=== PATIENT | male | born 1965 | race Caucasian/White ===

== ENCOUNTER 2018-02-03 20:52 | Observation (INO) | payer BC, OTHER ==
--- NOTE | 2018-02-03 21:22 | RAD REPORT ---
EXAM DESCRIPTION: CT - Ct Stroke Brain Wo Cont - 02/03/2018 9:11 pm CLINICAL HISTORY: Left leg numbness COMPARISON: None. TECHNIQUE: Computed axial tomography of the head was obtained. IV contrast was not requested. All CT scans are performed using dose optimization technique as appropriate and may include automated exposure control or mA/KV adjustment according to patient size. FINDINGS: An intracranial bleed is not seen . The ventricles are normal in caliber. No extra-axial fluid collection is noted. Right maxillary sinusitis is seen IMPRESSION: No acute intracranial abnormality is seen. If patient's symptoms persist MRI of the bra in would be recommended. Exam was discussed with Doctor López 9:13 p.m. 02/03/2018
[2018-02-03 21:27] LABS: Absolute Lymphocytes (CBC) 2.5 K/uL (0.7-4.9); Absolute Monocytes 0.6 K/uL (0.1-1.3); Basophils % 0.9 % (0-1.3); Eosinophils % 7.1 % (0-4.4); Hematocrit 44.9 % (39.6-49.0); Lymphocytes % 37.2 % (15.3-44.8); MCH 29.5 pg (27.0-35.0); MCV 85.1 fL (80-100); MPV 7.7 fL (7.6-11.3); Monocytes % 9.1 % (3.3-12.3); RBC Red Blood Cell Count 5.28 M/uL (4.33-5.43)
[2018-02-03 21:31] LABS: Protime INR 0.93
--- NOTE | 2018-02-03 21:32 | RAD REPORT ---
EXAM DESCRIPTION: Velia Single View02/03/2018 9:22 pm CLINICAL HISTORY: Numbness/code stroke COMPARISON: 2009 FINDINGS: The lungs appear clear of acute infiltrate. The heart is normal size IMPRESSION: No acute abnormalities displayed
[2018-02-03 21:44] LABS: BUN Blood Urea Nitrogen 21 mg/dL (7-18); Bicarbonate 30 mmol/L (21-32); Glucose Level 92 mg/dL (74-106); Magnesium 2.3 mg/dL (1.8-2.4); Sodium Level 143 mmol/L (136-145); Troponin (Emerg Dept Use Only) < 0.02 ng/mL (0.0-0.045)
[2018-02-03] MEDS ORDERED: ASPIRIN 81 MG CHEWABLE TABLET ONE (21:52)
--- NOTE | 2018-02-03 22:00 | EDPHYS ---
Physician Documentation [facility] Name: Niranjan Arteaga Age: 52 yrs Sex: Male : 1965 Arrival Date: 02/03/2018 Time: 20:53 Bed 4 Private MD: Colt Vinson T ED Physician Myke Mcclain HPI: 02/03 21:57 This 52 yrs old Male presents to ER via Ambulatory with complaints of rn Numbness. 21:57 The patient's problem is reported as paresthesias, in left lower extremity, weakness, rn in the left lower extremity. Onset: The symptoms/episode began/occurred around 3-4PM today. Duration: This was a single incident. The symptoms are alleviated by nothing. The symptoms are aggravated by nothing. Severity of symptoms: At their worst the symptoms were mild in the emergency department the symptoms are unchanged. The patient has experienced a previous episode. Historical: - Allergies: 21:17 Codeine; fc - Home Meds: 21:17 Xanax Oral [Active]; Enalapril Oral [Active]; fc - PMHx: 21:17 CVA; Hypertension; Anxiety; fc - PSHx: 21:17 Knee surgery; Carpal Tunnel Repair; elbow surg; fc - Immunization history:: Last tetanus immunization: unknown, Flu vaccine is not up to date. - Social history:: Smoking status: Patient/guardian denies using tobacco, the patient reports quitting approximately 7 years ago. - Ebola Screening: : Patient negative for fever greater than or equal to 101.5 degrees Fahrenheit, and additional compatible Ebola Virus Disease symptoms Patient denies exposure to infectious person Patient denies travel to an Ebola-affected area in the 21 days before illness onset. - Family history:: not pertinent. - Hospitalizations: : No recent hospitalization is reported. ROS: 21:57 Constitutional: Negative for fever, chills, and weight loss, Eyes: Negative for injury, rn pain, redness, and discharge, Neck: Negative for injury, pain, and swelling, Cardiovascular: Negative for chest pain, palpitations, and edema, Respiratory: Negative for shortness of breath, cough, wheezing, and pleuritic chest pain, Abdomen/GI: Negative for abdominal pain, nausea, vomiting, diarrhea, and constipation, MS/Extremity: Negative for injury and deformity, Skin: Negative for injury, rash, and discoloration, Neuro: + weakness and tingling LLE Exam: 21:57 Radiologist reports: no acute findings rn 21:57 Constitutional: This is a well developed, well nourished patient who is awake, alert, and in no acute distress. Head/Face: Normocephalic, atraumatic. Eyes: Pupils equal round and reactive to light, extra-ocular motions intact. Lids and lashes normal. Conjunctiva and sclera are non-icteric and not injected. Cornea within normal limits. Periorbital areas with no swelling, redness, or edema. Cardiovascular: Regular rate and rhythm with a normal S1 and S2. No gallops, murmurs, or rubs. Normal PMI, no JVD. No pulse deficits. Respiratory: Lungs have equal breath sounds bilaterally, clear to auscultation and percussion. No rales, rhonchi or wheezes noted. No increased work of breathing, no retractions or nasal flaring. Abdomen/GI: Soft, non-tender Skin: Warm, dry with normal turgor. Normal color with no rashes, no lesions, and no evidence of cellulitis. MS/ Extremity: Pulses equal, no cyanosis. Neuro: Awake and alert, GCS 15, oriented to person, place, time, and situation. Cranial nerves II-XII grossly intact. No drift, mild decreased strength LLE compared to rest. Decreased sensation to soft touch LLE. Cerebellar exam normal. Vital Signs: 20:58 BP 138 / 98; Pulse 104; Resp 20; Temp 98.6(O); Pulse Ox 97% on R/A; Weight 106.59 kg fc (R); Height 5 ft. 9 in. (175.26 cm) (R); Pain 0/10; 22:03 BP 134 / 86; Pulse 86; Resp 18; Pulse Ox 96% ; ea 22:47 BP 116 / 72; Pulse 83; Resp 18; Pulse Ox 97% ; Pain 0/10; ea 23:42 BP 132 / 90; Pulse 80; Resp 18; Pulse Ox 97% ; Pain 0/10; ea 20:58 Body Mass Index 34.70 (106.59 kg, 175.26 cm) NIH Stroke Scale Scores: 20:59 NIHSS Score: 1 fc MDM: 20:58 Patient medically screened. rn 21:05 ED course: Onset of symptoms patient reports between 3-4 PM, now between 5-6 hours past rn onset, outside of TPA window, notified patient of this and aware. Reports last episode didn't seek care and went away next morning. . 21:31 ED course: NIH 1, no TPA indicated due to out of window, will admit for stroke w/u. rn 21:57 Differential diagnosis: CVA, TIA, metabolic disorder. Data reviewed: vital signs, rn nurses notes, lab test result(s), EKG, radiologic studies, CT scan, and as a result, I will admit patient. Counseling: I had a detailed discussion with the patient and/or guardian regarding: the historical points, exam findings, and any diagnostic results supporting the discharge/admit diagnosis, lab results, radiology results, the need for further work-up and treatment in the hospital. Admission orders: after a detailed discussion of the patient's condition and case, the admit orders are written by me. 02/03 21:05 Order name: Magnesium rn 02/03 21:05 Order name: Troponin (emerg Dept Use Only) rn 02/03 21:05 Order name: Basic Metabolic Panel rn 02/03 21:05 Order name: CBC with Diff rn 02/03 21:05 Order name: Protime (+inr) rn 02/03 21:05 Order name: Ptt, Activated rn 02/03 21:05 Order name: Magnesium EDAZ 02/03 21:05 Order name: Troponin (Emerg Dept Use Only) EDAZ 02/03 21:05 Order name: Basic Metabolic Panel EDAZ 02/03 21:55 Order name: CBC with Automated Diff EDMS 02/03 21:55 Order name: CBC with Automated Diff EDMS 02/03 21:55 Order name: Comprehensive Metabolic Panel EDAZ 02/03 21:55 Order name: Comprehensive Metabolic Panel EDMS 02/03 21:55 Order name: Lipid Profile EDMS 02/03 21:05 Order name: CT Stroke Brain w/o Contrast; Complete Time: 21:31 rn 02/03 21:05 Order name: Stroke CXR 1 View; Complete Time: 21:34 rn 02/03 21:05 Order name: EKG; Complete Time: 21:06 rn 02/03 21:54 Order name: NPO EDMS 02/03 21:54 Order name: NPO EDMS 02/03 21:55 Order name: Physical Therapy Consult EDAZ 02/03 21:55 Order name: Speech Therapy Consult EDAZ 02/03 21:55 Order name: Echo with Doppler EDAZ 02/03 21:55 Order name: Lipid Profile EDAZ 02/03 21:55 Order name: Magnesium EDAZ 02/03 21:55 Order name: Magnesium EDAZ 02/03 21:55 Order name: Phosphorus EDAZ 02/03 21:55 Order name: Phosphorus EDAZ 02/03 21:55 Order name: Stroke Protocol EDAZ 02/03 21:05 Order name: Accucheck; Complete Time: 21:20 rn 02/03 21:05 Order name: Cardiac monitoring; Complete Time: 21:41 rn 02/03 21:05 Order name: EKG - Nurse/Tech; Complete Time: 21:20 rn 02/03 21:05 Order name: IV Saline Lock; Complete Time: 21:20 rn 02/03 21:05 Order name: Labs collected and sent; Complete Time: 21:20 rn 02/03 21:05 Order name: NPO; Complete Time: 21:20 rn 02/03 21:05 Order name: O2 Per Protocol; Complete Time: 21:20 rn 02/03 21:05 Order name: O2 Sat Monitoring; Complete Time: 21:20 rn 02/03 21:05 Order name: Stroke Swallow Screen; Complete Time: 21:49 rn 02/03 21:55 Order name: NPO EDAZ 02/03 21:55 Order name: EKG Electrocardiogram EDAZ Administered Medications: 21:49 Drug: Aspirin Chewable Tablet 324 mg Route: PO; ea 22:05 Follow up: Response: No adverse reaction ea Point of Care Testing: Blood Glucose: 21:02 Blood Glucose: 92 mg/dL; fc Ranges: Critical Glucose Levels:Adult <50 mg/dl or >400 mg/dl <40 mg/dl or >180 mg/dl Disposition: 02/03/18 22:00 Hospitalization ordered by Clementine Reilly for Inpatient Admission. Preliminary diagnosis are Paresthesia of skin, Weakness, Cerebrovascular accident (stroke). - Bed requested for Telemetry/MedSurg (Inpatient). - Status is Inpatient Admission. ea - Condition is Stable. - Problem is new. - Symptoms are unchanged. UTI on Admission? No NIH Stroke Scale - NIH Stroke Score Date: 02/03/2018 Time: 20:59 Total Score = 1 1a. Level of Consciousness (LOC) - 0(Alert) 1b. Level of Consciousness (LOC) (Year \T\ Age) - 0(Both) 1c. LOC Commands (Open \T\ Closes Eyes/Film Developer) - 0(Both) 2. Best Gaze (Lateral Gaze Paresis) - 0(Normal) 3. Visual Field Loss - 0(No visual loss) 4. Facial Palsy - 0(Normal) 5a. Left Arm: Motor (10-second hold) - 0(No drift) 5b. Right Arm: Motor (10-second hold) - 0(No drift) 6a. Left Leg: Motor (5-second hold - always test supine) - 0(No drift) 6b. Right Leg: Motor (5-second hold - always test supine) - 0(No drift) 7. Limb Ataxia (finger/nose \T\ heel/mak - test with eyes open) - 0(Absent) 8. Sensory Loss (pinprick arms/legs/face) - 1(Mild to moderate loss) 9. Best Language: Aphasia (description/naming/reading) - 0(No aphasia) 10. Dysarthria (speech clarity - read or repeat words) - 0(Normal) 11. Extinction and Inattention (visual/tactile/auditory/spatial/personal) - 0(No abnormality) Initials: fc Signatures: Dispatcher [employer] EDAZ Clarisse Galvin RN RN kl Chretien, Felicia, RN RN Myke Mcclain MD MD rn Antunez, Elena, RN RN ea Corrections: (The following items were deleted from the chart) 21:59 21:55 Chest Pa And Lat (2 Views) ordered. EDAZ EDAZ 22:20 22:00 Hospitalization Ordered by Clementine Reilly MD for Inpatient Admission. [email or web address] Preliminary diagnosis is Paresthesia of skin; Weakness; Cerebrovascular accident (stroke). Bed requested for Telemetry/MedSurg (Inpatient). Status is Inpatient Admission. Condition is Stable. Problem is new. Symptoms are unchanged. UTI on Admission? No. rn 23:48 22:20 02/03/2018 22:00 Hospitalization Ordered by Clementine Reilly MD for ea Inpatient Admission. Preliminary diagnosis is Paresthesia of skin; Weakness; Cerebrovascular accident (stroke). Bed requested for Telemetry/MedSurg (Inpatient). Status is Inpatient Admission. Condition is Stable. Problem is new. Symptoms are unchanged. UTI on Admission? No. kl
--- NOTE | 2018-02-03 22:00 | ER ---
Nurse's Notes [facility] Name: Niranjan Arteaga Age: 52 yrs Sex: Male : 1965 Arrival Date: 02/03/2018 Time: 20:53 Bed 4 Private MD: Colt Vinson T Diagnosis: Paresthesia of skin;Weakness;Cerebrovascular accident (stroke) Presentation: 02/03 20:58 Presenting complaint: Patient states: that at approx 1600 he noted that his left foot fc was numb and it has progressed up his left leg to his knee. States that this is the way his last stroke started. Transition of care: patient was not received from another setting of care. Onset of symptoms was February 03, 2018 at 16:00. Risk Assessment: Do you want to hurt yourself or someone else? Patient reports no desire to harm self or others. Initial Sepsis Screen: Does the patient meet any 2 criteria? HR > 90 bpm. Yes Does the patient have a suspected source of infection? No. Patient's initial sepsis screen is negative. Care prior to arrival: None. 20:58 Method Of Arrival: Ambulatory 20:58 Acuity: ROSE 2 fc Historical: - Allergies: 21:17 Codeine; fc - Home Meds: 21:17 Xanax Oral [Active]; Enalapril Oral [Active]; fc - PMHx: 21:17 CVA; Hypertension; Anxiety; fc - PSHx: 21:17 Knee surgery; Carpal Tunnel Repair; elbow surg; fc - Immunization history:: Last tetanus immunization: unknown, Flu vaccine is not up to date. - Social history:: Smoking status: Patient/guardian denies using tobacco, the patient reports quitting approximately 7 years ago. - Ebola Screening: : Patient negative for fever greater than or equal to 101.5 degrees Fahrenheit, and additional compatible Ebola Virus Disease symptoms Patient denies exposure to infectious person Patient denies travel to an Ebola-affected area in the 21 days before illness onset. - Family history:: not pertinent. - Hospitalizations: : No recent hospitalization is reported. Screenin:14 Abuse screen: Denies threats or abuse. Nutritional screening: No deficits noted. fc Tuberculosis screening: No symptoms or risk factors identified. Fall Risk No fall in past 12 months (0 pts). Secondary diagnosis (15 points) CVA, IV access (20 points). Ambulatory Aid- None/Bed Rest/Nurse Assist (0 pts). Gait- Normal/Bed Rest/Wheelchair (0 pts) Mental Status- Overestimates/Forgets Limitations (15 pts.). Total Aparicio Fall Scale indicates Low Risk Score (25-44 pts). Fall prevention measures have been instituted. Side Rails Up X 2 Placed close to Nursing Station Frequent Obs/Assesments occuring Family Present and informed to notify staff if they need to leave bedside As available Patient and Family Educated on Fall Prevention Program and strategies. 21:18 The patient has not been NPO before screening. The patient is alert, able to follow fc commands. The patient does not exhibit slurred or garbled speech The patient is not exhibiting difficulty speaking. The patient does not exhibit difficulty understanding words. The patient is able to swallow own secretions with no drooling or need for suction. Patient tolerated one teaspoon of water. No drooling, immediate coughing, gurgling, or clearing of the throat was noted. The patient tolerated 90mL of water. No drooling, immediate coughing, gurgling, or clearing of the throat was noted. The patient passed the bedside swallow screening. Oral medications may be given as ordered. Contact Physician for further diet orders. Provider notified of bedside swallow screening results: Myke Mcclain MD. Assessment: 21:16 General: Appears in no apparent distress. Behavior is calm, cooperative, appropriate ea for age. Pain: Denies pain. Neuro: Level of Consciousness is awake, alert, obeys commands, Oriented to person, place, time, situation, Sales Service Supervisor are equal bilaterally Weakness in left leg(s) Speech is normal, Facial symmetry appears normal, Intact. Cardiovascular: Patient's skin is warm and dry. Respiratory: Airway is patent Respiratory effort is even, unlabored, Respiratory pattern is regular, symmetrical, Breath sounds are clear bilaterally. GI: No signs and/or symptoms were reported involving the gastrointestinal system. : No signs and/or symptoms were reported regarding the genitourinary system. Derm: Skin is pink, warm \T\ dry. 22:01 Reassessment: Patient and/or family updated on plan of care and expected duration. Pain ea level reassessed. Patient is alert, oriented x 3, equal unlabored respirations, skin warm/dry/pink. Family at bedside. 23:42 Reassessment: Patient and/or family updated on plan of care and expected duration. Pain ea level reassessed. Patient is alert, oriented x 3, equal unlabored respirations, skin warm/dry/pink. Report called to fourth floor to receiving nurse. Patient denies pain at this time. 23:47 Reassessment: Patient and/or family updated on plan of care and expected duration. Pain ea level reassessed. Patient is alert, oriented x 3, equal unlabored respirations, skin warm/dry/pink. Pt taken to fourth floor via wheelchair per tech, tolerating well. Vital Signs: 20:58 BP 138 / 98; Pulse 104; Resp 20; Temp 98.6(O); Pulse Ox 97% on R/A; Weight 106.59 kg fc (R); Height 5 ft. 9 in. (175.26 cm) (R); Pain 0/10; 22:03 BP 134 / 86; Pulse 86; Resp 18; Pulse Ox 96% ; ea 22:47 BP 116 / 72; Pulse 83; Resp 18; Pulse Ox 97% ; Pain 0/10; ea 23:42 BP 132 / 90; Pulse 80; Resp 18; Pulse Ox 97% ; Pain 0/10; ea 20:58 Body Mass Index 34.70 (106.59 kg, 175.26 cm) fc NIH Stroke Scale Scores: 20:59 NIHSS Score: 1 ED Course: 20:53 Patient arrived in ED. am2 20:54 Gabe Roberts MD is Private Physician. am2 20:54 Colt Vinson MD is Private Physician. am2 20:58 Myke Mcclain MD is Attending Physician. rn 20:58 Arm band placed on Patient placed in an exam room, on a stretcher. fc 21:03 Initial lab(s) drawn, by ED staff, sent to lab. Inserted saline lock: 20 gauge in left fc antecubital area, using aseptic technique. ,using aseptic technique. per Lissy FELICIANO Blood collected. 21:11 CT Stroke Brain w/o Contrast In Process Unspecified. EDMS 21:11 Triage completed. fc 21:15 Lissy Hammond, RN is Primary Nurse. ea 21:15 X-ray(s) taken. fc 21:18 Patient has correct armband on for positive identification. ea 21:23 Stroke CXR 1 View In Process Unspecified. EDMS 21:59 Clementine Reilly MD is Hospitalizing Provider. rn 22:48 No provider procedures requiring assistance completed. Patient admitted, IV remains in ea place. Administered Medications: 21:49 Drug: Aspirin Chewable Tablet 324 mg Route: PO; ea 22:05 Follow up: Response: No adverse reaction ea Point of Care Testing: Blood Glucose: 21:02 Blood Glucose: 92 mg/dL; fc Ranges: Outcome: 22:00 Decision to Hospitalize by Provider. rn 23:41 Admitted to Med/surg accompanied by tech, family with patient, room 429, Report called ea to Receiving nurse on fourth floor. 23:41 Condition: stable 23:41 Instructed on the need for admit. 23:48 Patient left the ED. ea NIH Stroke Scale - NIH Stroke Score Date: 02/03/2018 Time: 20:59 Total Score = 1 1a. Level of Consciousness (LOC) - 0(Alert) 1b. Level of Consciousness (LOC) (Year \T\ Age) - 0(Both) 1c. LOC Commands (Open \T\ Closes Eyes/Principle Software Engineer) - 0(Both) 2. Best Gaze (Lateral Gaze Paresis) - 0(Normal) 3. Visual Field Loss - 0(No visual loss) 4. Facial Palsy - 0(Normal) 5a. Left Arm: Motor (10-second hold) - 0(No drift) 5b. Right Arm: Motor (10-second hold) - 0(No drift) 6a. Left Leg: Motor (5-second hold - always test supine) - 0(No drift) 6b. Right Leg: Motor (5-second hold - always test supine) - 0(No drift) 7. Limb Ataxia (finger/nose \T\ heel/mak - test with eyes open) - 0(Absent) 8. Sensory Loss (pinprick arms/legs/face) - 1(Mild to moderate loss) 9. Best Language: Aphasia (description/naming/reading) - 0(No aphasia) 10. Dysarthria (speech clarity - read or repeat words) - 0(Normal) 11. Extinction and Inattention (visual/tactile/auditory/spatial/personal) - 0(No abnormality) Initials: fc Signatures: Dispatcher [employer] EDUT Shelby Vargas RN RN Mcclain, Myke, MD MD rn Will, Liz am2 Hammond, Lissy, RN RN ea
[2018-02-04] MEDS: NA CHLORIDE 0.9% 1,000 ML IV SCH ×2 (01:41→11:20)
[2018-02-04 04:33] LABS: Albumin 3.2 g/dL (3.4-5.0); Bilirubin Total 0.2 mg/dL (0.2-1.0); Magnesium 2.1 mg/dL (1.8-2.4); Potassium 4.3 mmol/L (3.5-5.1); Protein, Total 6.4 g/dL (6.4-8.2)
[2018-02-04 04:50] LABS: Absolute Lymphocytes (CBC) 2.7 K/uL (0.7-4.9); Absolute Monocytes 0.6 K/uL (0.1-1.3); Absolute Neutrophil 2.4 K/uL (1.8-8.0); Eosinophils % 8.5 % (0-4.4); Hematocrit 42.5 % (39.6-49.0); Lymphocytes % 43.4 % (15.3-44.8); MCH 29.1 pg (27.0-35.0); MCV 85.7 fL (80-100); MPV 7.9 fL (7.6-11.3); Monocytes % 8.9 % (3.3-12.3); RBC Red Blood Cell Count 4.96 M/uL (4.33-5.43)
--- NOTE | 2018-02-04 08:23 | P.HP ---
Certification for Inpatient Patient admitted to: Observation With expected LOS: <2 Midnights Patient will require the following post-hospital care: None Practitioner: I am a practitioner with admitting privileges, knowledge of patient current condition, hospital course, and medical plan of care. Services: Services provided to patient in accordance with Admission requirements found in Title 42 Section 412.3 of the Code of Federal Regulations Patient History Date of Service: 02/03/18 Reason for admission: TIA History of Present Illness: Patient is a 52-year-old gentleman who came into the hospital with numbness of the left lower extremity. Patient also had a little bit a weakness. He states the numbness was of worse symptom. This was not felt in the upper extremity. He has had it in the whole left side of his body and he states that at that time he was told he had a stroke. He has not been following with his neurologist regularly. He came into the hospital because he was worried he was having another stroke. His NIHSS stroke schedule score is see row. His CT scan did not reveal a new stroke nor did it reveal any prior infarcts. He could be having neuropathy. He will be admitted to the hospital for further workup. Allergies codeine Allergy (Verified 02/04/18 01:04) remains awake Home Medications: ALPRAZolam [Xanax] 2 mg PO BEDTIME 02/04/18 Aspirin [Aspirin EC 325 MG] 325 mg PO DAILY 02/04/18 Duloxetine HCl [Cymbalta] 60 mg PO BEDTIME 02/04/18 Enalapril Maleate [Vasotec] 5 mg PO DAILY 02/04/18 Linaclotide [Linzess] 1 cap PO DAILY 02/04/18 - Past Medical/Surgical History Diabetic: No -: CVA -: Hypertension -: Anxiety -: Right knee repair -: Bilateral carpal tunnel x2 -: Bilateral elbow sx - Family History Mother Medical History: Other (see notes) Notes: Alzheimers Father Medical History: GI disease Notes: Crohns; HTN; high cholesterol - Social History Smoking Status: Former smoker Alcohol use: Yes CD- Drugs: No Caffeine use: Yes Place of Residence: Home Review of Systems 10-point ROS is otherwise unremarkable Physical Examination - Vital Signs Temperature: 97.9 F Blood Pressure: 105/58 Pulse: 74 Respirations: 18 Pulse Ox (%): 100 - Physical Exam General: Alert, In no apparent distress, Oriented x3 HEENT: Atraumatic, PERRLA, Mucous membr. moist/pink, EOMI, Sclerae nonicteric Neck: Supple, 2+ carotid pulse no bruit, No LAD, Without JVD or thyroid abnormality Respiratory: Clear to auscultation bilaterally, Normal air movement Cardiovascular: Regular rate/rhythm, Normal S1 S2, No murmurs Gastrointestinal: Normal bowel sounds, Soft and benign, Non-distended, No tenderness Musculoskeletal: No clubbing, No swelling, No tenderness Integumentary: No rashes Neurological: Normal gait, Normal speech, Normal strength at 5/5 x4 extr, Normal tone, Sensation intact, Cranial nerves 3-12 intact, Normal affect Lymphatics: No axilla or inguinal lymphadenopathy - Studies Laboratory Data (last 24 hrs) 02/03/18 21:02: PT 11.0, INR 0.93, APTT 32.6 02/03/18 21:02: WBC 6.7, Hgb 15.6, Hct 44.9, Plt Count 254 02/03/18 21:02: Sodium 143, Potassium 4.0, BUN 21 H, Creatinine 1.50 H, Glucose 92, Magnesium 2.3 Assessment & Plan - Problems (Diagnosis) (1) TIA (transient ischemic attack) Current Visit: Yes Status: Acute (2) Neuropathy Current Visit: Yes Status: Acute (3) History of hypertension Current Visit: Yes Status: Acute - Plan 1. Physical therapy evaluation is doing okay. Will have them assess his left lower extremity strength 2. Speech therapy evaluation is not necessary at this time as patient is swallowing and talking well. 3. Anti-platelet therapy 4. Lipid profile in the morning to see if he would benefit from statin therapy 5. MRI of the brain 6. Physically patient is doing well and does not need further physical therapy 7. Neurology consultation 8. Monitor hemodynamics closely 9. Neuro checks every 4 hr 10. GI and DVT prophylaxis Discharge Plan: Home Plan to discharge in: 24 Hours - Advance Directives Does patient have a Living Will: No Does patient have a Durable POA for Healthcare: No - Code Status/Comfort Care Code Status Assessed: Yes Code Status: Full Code Critical Care: No Time Spent Managing PTS Care (In Minutes): 50
--- NOTE | 2018-02-04 08:38 | EKG ---
Test Date: 2018-02-03 Test Time: 21:03:45 Recruiting Operations Consultant: HU MEASUREMENT RESULTS: Intervals: Rate: 93 MT: 134 QRSD: 72 QT: 348 QTc: 432 Stopover: P: 56 MT: 134 QRS: -27 T: 31 INTERPRETIVE STATEMENTS: Normal sinus rhythm Normal ECG Compared to ECG 02/01/2010 10:48:24 No significant changes Electronically Signed On 02-04-18 08:37:34 CDT by Gabriel Bah
[2018-02-04] MEDS ORDERED: CLOPIDOGREL 75 MG TABLET PO SCH (09:00)
[2018-02-04] MEDS ORDERED: INFLUENZA VACCINE (for 3y+) 0.5 ML DOSE IMVAC ONE (09:00)
[2018-02-04] MEDS ORDERED: ASPIRIN EC 81 MG TAB PO SCH (09:00)
[2018-02-04] MEDS ORDERED: ENOXAPARIN 40 MG/0.4 ML SQ SCH (09:00)
--- NOTE | 2018-02-04 09:12 | RAD REPORT ---
EXAM DESCRIPTION: MRI - Brain W/Wo Cont - 02/04/2018 8:24 am CLINICAL HISTORY: Left leg numbness COMPARISON: 02/03/2018 cat scan TECHNIQUE: Axial, sagittal, and coronal magnetic images of the brain were obtained. 20 cc MultiHance administered intravenously FINDINGS: A few tiny areas increased signal are present within the deep white matter bilaterally whi ch may represent minimal ischemic changes secondary to minimal small vessel disease Diffusion-weighted/ADC mapping does not reveal evidence of acute infarction. The ventricles are normal caliber. No abnormal enhancement within the brain is seen. An extra-axial fluid collection is not seen Marked mucoperiosteal thickening of the right maxillary sinus is present. Fluid within the mastoids i s not seen IMPRESSION: No significant intracranial abnormality is displayed Chronic right maxillary sinusitis
--- NOTE | 2018-02-04 09:14 | RAD REPORT ---
EXAM DESCRIPTION: MRI - MRA Neck W/Wo Cont - 02/04/2018 8:24 am CLINICAL HISTORY: Left leg numbness COMPARISON: None. TECHNIQUE: Magnetic resonance angiogram of the neck was performed. 19 cc Magnevist was administered intravenously. .Source images were reviewed and reconstructed at 360 degrees rotation. FINDINGS: The left carotid bifurcation is higher within the neck than the right. The common carotid, internal carotid and external carotid arteries do not demonstrate a significant stenosis. An aneurys m is not seen. The vertebral arteries are codominant without visualization of an abnormality. IMPRESSION: Unremarkable MRA neck
--- NOTE | 2018-02-04 09:27 | RAD REPORT ---
EXAM DESCRIPTION: MRI - MRA Head Wo Cont - 02/04/2018 8:24 am CLINICAL HISTORY: Left leg numbness COMPARISON: None. TECHNIQUE: Magnetic resonance angiogram of the head was performed. 3D mip reconstruction performed FINDINGS: The visualized anterior cerebral, middle cerebral, posterior cerebral, basilar and distal internal carotid arteries do not demonstrate a significant stenosis. An aneurysm is not seen IMPRESSION: Unremarkable MRA head
--- NOTE | 2018-02-04 12:55 | P.DS ---
Admission Date: 02/03/18 Discharge Date: 02/04/18 Primary Care Provider: Dr. Vinson Disposition: ROUTINE DISCHARGE Discharge Condition: GOOD Reason for Admission: TIA Consultations: None Procedures: MRI brain CLINICAL HISTORY: Left leg numbness COMPARISON: 02/03/2018 cat scan TECHNIQUE: Axial, sagittal, and coronal magnetic images of the brain were obtained. 20 cc MultiHance administered intravenously FINDINGS: A few tiny areas increased signal are present within the deep white matter bilaterally which may represent minimal ischemic changes secondary to minimal small vessel disease Diffusion-weighted/ADC mapping does not reveal evidence of acute infarction. The ventricles are normal caliber. No abnormal enhancement within the brain is seen. An extra-axial fluid collection is not seen Marked mucoperiosteal thickening of the right maxillary sinus is present. Fluid within the mastoids is not seen IMPRESSION: No significant intracranial abnormality is displayed Chronic right maxillary sinusitis MRA Brain: COMPARISON: None. TECHNIQUE: Magnetic resonance angiogram of the head was performed. 3D mip reconstruction performed FINDINGS: The visualized anterior cerebral, middle cerebral, posterior cerebral , basilar and distal internal carotid arteries do not demonstrate a significant stenosis. An aneurysm is not seen IMPRESSION: Unremarkable MRA head MRA Neck: COMPARISON: None. TECHNIQUE: Magnetic resonance angiogram of the neck was performed. 19 cc Magnevist was administered intravenously. .Source images were reviewed and reconstructed at 360 degrees rotation. FINDINGS: The left carotid bifurcation is higher within the neck than the right. The common carotid, internal carotid and external carotid arteries do not demonstrate a significant stenosis. An aneurysm is not seen. The vertebral arteries are codominant without visualization of an abnormality. IMPRESSION: Unremarkable MRA neck Medical Problem List: Lower extremity numbness resolved likely TIA with history of CVA Hypertension Hyperlipidemia Anxiety Acute renal insufficiency likely dehydration Brief History of Present Illness: 52-year-old male present emergency room with left lower extremity numbness. Patient with history of hypertension and CVA in the past. Patient was seen and evaluated. Patient was admitted for further evaluation. Hospital Course: Patient presents with left lower extremity numbness. Patient with history of hypertension and CVA in the past. Patient was evaluated. Symptoms resolved. MRI brain, MRA brain, MRA neck showed no acute changes. Patient previously on aspirin. Patient worked with physical therapy. Patient was ambulating well. Case discussed with Neurology. At discharge patient will continue with aspirin 81 mg daily, Plavix 75 mg daily, folic acid 1 mg daily and Lipitor 40 mg daily. Recommendation is for the patient follow up with neurology in 1-2 weeks to follow up this hospitalization. Patient has hypertension. Blood pressures were well controlled off medication. At discharge, enalapril 5 mg daily has been discontinued. He is to monitors blood pressures daily. Recommendation is to maintain blood pressures less 150/ 80. If his blood pressures remain above 140/90 consistently then he may restart enalapril. Further adjustment can be done by his PCP. Patient has hyperlipidemia. LDL elevated. At discharge patient will continue with Lipitor 40 mg 1 pill once daily. Patient has anxiety. Patient may continue with his medication Cymbalta 60 mg 1 pill daily and alprazolam. Further adjustment can be done by his PCP. Recommendation is to limit and eventually wean off alprazolam. Patient had presented with acute renal insufficiency likely from dehydration. Patient received IV fluids. Improvement was noted. Recommendation to recheck lab-BMP in 1 week to monitor his progress. Vital Signs/Physical Exam: Temp Pulse Resp BP Pulse Ox 97.9 F 74 18 105/58 L 100 02/04/18 08:23 02/04/18 08:23 02/04/18 08:23 02/04/18 08:23 02/04/18 08:23 General: Alert, In no apparent distress, Oriented x3, Cooperative HEENT: Atraumatic, Mucous membr. moist/pink Neck: Supple, No Thyromegaly Respiratory: Clear to auscultation bilaterally, Normal air movement Cardiovascular: Normal pulses, Regular rate/rhythm Gastrointestinal: Normal bowel sounds, Soft and benign, Non-distended, No tenderness, No masses, No rebound, No guarding Musculoskeletal: No contractures, No erythema, No tenderness, No warmth Integumentary: No tenderness/swelling, No erythema, No warmth, No cyanosis Neurological: Normal speech, Normal strength at 5/5 x4 extr, Normal tone, Normal affect Laboratory Data at Discharge: WBC 6.3 K/uL (4.3-10.9) 02/04/18 03:50 Hgb 14.5 g/dL (13.6-17.9) 02/04/18 03:50 Hct 42.5 % (39.6-49.0) 02/04/18 03:50 Plt Count 214 K/uL (152-406) 02/04/18 03:50 PT 11.0 SECONDS (9.5-12.5) 02/03/18 21:02 INR 0.93 02/03/18 21:02 APTT 32.6 SECONDS (24.3-36.9) 02/03/18 21:02 Sodium 143 mmol/L (136-145) 02/04/18 03:43 Potassium 4.3 mmol/L (3.5-5.1) 02/04/18 03:43 BUN 19 mg/dL (7-18) H 02/04/18 03:43 Creatinine 1.00 mg/dL (0.55-1.3) 02/04/18 03:43 Glucose 98 mg/dL (74-106) 02/04/18 03:43 Phosphorus 3.0 mg/dL (2.5-4.9) 02/04/18 03:43 Magnesium 2.1 mg/dL (1.8-2.4) 02/04/18 03:43 Total Bilirubin 0.2 mg/dL (0.2-1.0) 02/04/18 03:43 AST 18 U/L (15-37) 02/04/18 03:43 ALT 28 U/L (12-78) 02/04/18 03:43 Alkaline Phosphatase 73 U/L (45-117) 02/04/18 03:43 Triglycerides 75 mg/dL (<150) 02/04/18 03:43 Cholesterol 211 mg/dL (<200) H 02/04/18 03:43 HDL Cholesterol 52 mg/dL (40-60) 02/04/18 03:43 Cholesterol/HDL Ratio 4.06 02/04/18 03:43 Home Medications: ALPRAZolam [Xanax*] 2 mg PO BEDTIME 02/04/18 Aspirin [Aspirin EC 81 MG] 81 mg PO DAILY #90 tablet. 02/04/18 Atorvastatin Calcium [Lipitor] 40 mg PO DAILY #30 tablet 02/04/18 Clopidogrel Bisulfate [Plavix*] 75 mg PO DAILY #30 tablet 02/04/18 Duloxetine HCl [Cymbalta] 60 mg PO BEDTIME 02/04/18 Folic Acid 1 mg PO DAILY #90 tablet 02/04/18 Linaclotide [Linzess] 1 cap PO DAILY 02/04/18 New Medications: Aspirin [Aspirin EC 81 MG] 81 mg PO DAILY #90 tablet. Atorvastatin Calcium [Lipitor] 40 mg PO DAILY #30 tablet Clopidogrel Bisulfate [Plavix*] 75 mg PO DAILY #30 tablet Folic Acid 1 mg PO DAILY #90 tablet Patient Discharge Instructions: 1. Patient will need a follow up with his PCP in 1 week to follow up this hospitalization. 2. Patient presents with left lower extremity numbness. Patient with history of hypertension and CVA in the past. Patient was evaluated. Symptoms resolved. MRI brain, MRA brain, MRA neck showed no acute changes. Patient previously on aspirin. Patient worked with physical therapy. Patient was ambulating well. Case discussed with Neurology. At discharge patient will continue with aspirin 81 mg daily, Plavix 75 mg daily, folic acid 1 mg daily and Lipitor 40 mg daily. Recommendation is for the patient follow up with neurology in 1-2 weeks to follow up this hospitalization. 3. Patient has hypertension. Blood pressures were well controlled off medication. At discharge, enalapril 5 mg daily has been discontinued. He is to monitors blood pressures daily. Recommendation is to maintain blood pressures less 150/80. If his blood pressures remain above 140/ 90 consistently then he may restart enalapril. Further adjustment can be done by his PCP. 4. Patient has hyperlipidemia. LDL elevated. At discharge patient will continue with Lipitor 40 mg 1 pill once daily. 5. Patient has anxiety. Patient may continue with his medication Cymbalta 60 mg 1 pill daily and alprazolam. Further adjustment can be done by his PCP. Recommendation is to limit and eventually wean off alprazolam. 6. Patient had presented with acute renal insufficiency likely from dehydration. Patient received IV fluids. Improvement was noted. Recommendation to recheck lab-BMP in 1 week to monitor his progress. Diet: AHA Activity: Ad nelly Followup: Colt Vinson MD [Primary Care Provider] - Time spent managing pt's care (in minutes): 55
[2018-02-04] MEDS ORDERED: DULOXETINE 30 MG CAP PO SCH (21:00)
[2018-02-04] MEDS ORDERED: ATORVASTATIN 20 MG TAB PO SCH (21:00)
--- NOTE | 2018-02-05 07:18 | ECHO ---
HEIGHT: 5 ft 11 in WEIGHT: 236 lb 8 oz DATE OF STUDY: 02/04/[address]: Clementine Reilly MD 2-DIMENSIONAL: YES M.MODE: YES DOPPLER: YES COLOR FLOW: YES TDS: PORTABLE: DEFINITY: BUBBLE STUDY: DIAGNOSIS: STROKE CARDIAC HISTORY: CATHERIZATION: NO SURGERY: NO PROSTHETIC VALVE: NO PACEMAKER: NO MEASUREMENTS (cm) DIASTOLIC (NORMALS) SYSTOLIC (NORMALS) IVSd 1.1 (0.6-1.2) LA Diam 3.0 (1.9-4.0) LVEF 60-69% LVIDd 2.8 (3.5-5.7) LVIDs 2.2 (2.0-3.5) %FS 23% LVPWd 1.1 (0.6-1.2) Ao Diam 3.0 (2.0-3.7) 2 DIMENSIONAL ASSESSMENT: RIGHT ATRIUM: NORMAL LEFT ATRIUM: NORMAL RIGHT VENTRICLE: NORMAL LEFT VENTRICLE: NORMAL TRICUSPID VALVE: NORMAL MITRAL VALVE: NORMAL PULMONIC VALVE: NORMAL AORTIC VALVE: NORMAL PERICARDIAL EFFUSION: NONE AORTIC ROOT: NORMAL LEFT VENTRICULAR WALL MOTION: NORMAL DOPPLER/COLOR FLOW: NORMAL COMMENTS: NORMAL 2-DIMENSIONAL ECHOCARDIOGRAM WITH DOPPLER. TECHNOLOGIST: ADONIS SMYTH
[2018-02-05] MEDS ORDERED: FOLIC ACID 1 MG TABLET PO SCH (09:00)
== END 2018-02-04 16:28 | disposition home or self-care (01) ==
LOC: ER 20:52 → INTOOBSV 22:39 → ERHOLD 22:39 → 4TH 22:54
PROVIDERS: ADMIT Hospitalist; ATTEND Hospitalist
DX: R20.0 Anesthesia of skin (principal); N28.9 Disorder of kidney and ureter, unspecified; I10 Essential (primary) hypertension; E78.5 Hyperlipidemia, unspecified; F41.9 Anxiety disorder, unspecified; Z86.73 Personal history of transient ischemic attack (TIA), and cerebral infarction without residual deficits
CPT/HCPCS: 36415; 70450; 70544; 70549; 70553; 71045; 80048; 80053; 80061; 82962; 83735; 84100; 84484; 85025; 85610; 85730; 93005; 93306; 97163; 99285; A9577; G0378; J1650; J7030

== ENCOUNTER 2022-06-25 16:59 | Inpatient (IN) | payer SELFPAY ==
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
--- NOTE | 2022-06-25 17:27 | RAD REPORT ---
EXAM DESCRIPTION: CT - Ct Stroke Brain Wo Cont - 06/25/2022 5:22 pm CLINICAL HISTORY: STROKE ALERT COMPARISON: Ct Stroke Brain Wo Cont dated 02/03/2018 TECHNIQUE: All CT scans are performed using dose optimization technique as appropriate and may inclu de automated exposure control or mA/KV adjustment according to patient size. FINDINGS: No intracranial hemorrhage, hydrocephalus or extra-axial fluid collection.No areas of brai n edema or evidence of midline shift. The paranasal sinuses and mastoids are clear. The calvarium is intact. IMPRESSION: No acute intracranial abnormality. Discussed with Dr. Mcclain by Dr. Munoz at 1722 on 06/25/22
[2022-06-25] MEDS ORDERED: TENECTEPLASE 50 MG/10 ML VIAL IV ONE (17:34)
[2022-06-25] MEDS ORDERED: LABETALOL HCL 100 MG/20 ML ONE (17:36)
[2022-06-25] MEDS ORDERED: LABETALOL 20 MG/4ML SYRINGE IV ONE (17:36)
[2022-06-25 17:38] LABS: Absolute Lymphocytes (CBC) 1.9 K/uL (0.7-4.9); Hematocrit 45.9 % (39.6-49.0); Lymphocytes % 31.9 % (15.3-44.8); MCV 83.3 fL (80-100); MPV 7.7 fL (7.6-11.3); RBC Red Blood Cell Count 5.51 M/uL (4.33-5.43)
[2022-06-25 17:53] LABS: Albumin 3.9 g/dL (3.4-5.0); Bilirubin Direct 0.1 mg/dL (0-0.2); Bilirubin Total 0.4 mg/dL (0.2-1.0); Potassium 3.8 mmol/L (3.5-5.1); Protein, Total 7.4 g/dL (6.4-8.2); Troponin High Sensitivity 4.6 pg/mL (<58.9)
--- NOTE | 2022-06-25 18:13 | RAD REPORT ---
EXAM DESCRIPTION: RAD - Chest Single View - 06/25/2022 6:04 pm CLINICAL HISTORY: CHEST PAIN COMPARISON: <Comparisons> FINDINGS: Lines: None. Lungs: No evidence of edema or pneumonia. Pleural: No significant pleural effusions or pneumothorax. Cardiac: The heart size is within normal limits. Mediastinum: Within normal limits. Bones: No acute fractures. Other: None IMPRESSION: No acute cardiopulmonary disease.
[2022-06-25 18:15] LABS: SARS-CoV-2 Antigen Rapid Res Negative (Negative)
[2022-06-25 18:20] LABS: Urine Blood Negative (Negative); Urine Glucose Negative (Negative); Urine Protein Negative (Negative); Urine pH 5.5 (5.0-7.0)
--- NOTE | 2022-06-25 18:25 | ER ---
Nurse's Notes [facility] Name: Niranjan Arteaga Age: 56 yrs Sex: Male : 1965 Arrival Date: 06/25/2022 Time: 17:02 Bed 14 Private MD: Diagnosis: Paresthesia of skin;Weakness Presentation: 06/25 17:13 Chief complaint: Patient states: at a approx 1300 today he started having right lower ap3 leg numbness \T\ tingling and patients reports feeling disoriented at the same time. Patient reports a headache on both sides of his head, generalized weakness in his dimitri upper extremities. patient also reports mid chest pressure that is rated as a 6/10 on the pain scale. Coronavirus screen: At this time, the client does not indicate any symptoms associated with coronavirus-19. Ebola Screen: No symptoms or risks identified at this time. Initial Sepsis Screen: Does the patient meet any 2 criteria? No. Patient's initial sepsis screen is negative. Does the patient have a suspected source of infection? No. Patient's initial sepsis screen is negative. Risk Assessment: Do you want to hurt yourself or someone else? Patient reports no desire to harm self or others. Onset of symptoms was June 25, 2022 at 13:00. 17:13 Method Of Arrival: Ambulatory ap3 17:13 Acuity: ROSE 2 ap3 17:19 An acute neurological deficit is present. ap3 17:21 Pre-hospital glucose is not applicable to this patient. ap3 Triage Assessment: 17:16 General: Appears distressed, Behavior is calm, cooperative, anxious. Pain: Complains of ap3 pain in chest Pain currently is 6 out of 10 on a pain scale. Quality of pain is described as pressure. Neuro: Level of Consciousness is awake, alert, obeys commands, Oriented to person, place, time, situation, Speech is normal. Neuro: Reports numbness in right leg weakness in right arm and left arm. Cardiovascular: Reports chest pain, Patient's skin is warm and dry. Respiratory: Airway is patent Respiratory effort is even, unlabored, Respiratory pattern is regular, symmetrical. 17:20 The onset of the patients symptoms was June 25, 2022 at 13:00. ap3 Stroke Activation: Symtpom onset >3 hours and < 6 hours Physician: Stroke Attending; Name: ; Notified At: 17:12; Arrived At: Physician: Chief Stroke Resident; Name: ; Notified At: 17:12; Arrived At: Physician: Stroke Resident; Name: ; Notified At: 17:12; Arrived At: Physician: ED Attending; Name: ; Notified At: 17:12; Arrived At: 17:12 Physician: ED Resident; Name: ; Notified At: 17:12; Arrived At: Historical: - Allergies: 17:15 Codeine; ap3 - Immunization history:: Client reports receiving the 2nd dose of the Covid vaccine, Flu vaccine is not up to date. - Social history:: Smoking status: Patient reports use of chewing tobacco. Screenin:17 Abuse screen: Denies threats or abuse. Nutritional screening: No deficits noted. ap3 Tuberculosis screening: No symptoms or risk factors identified. 18:35 [facility] ED Fall Risk Assessment (Adult) History of falling in the last 3 months, db including since admission No falls in past 3 months (0 pts) Confusion or Disorientation No (0 pts) Intoxicated or Sedated No (0 pts) Impaired Gait No (0 pts) Mobility Assist Device Used No (0 pt) Altered Elimination No (0 pt) Score/Fall Risk Level 0 - 2 = Low Risk Oriented to surroundings, Maintained a safe environment. 18:53 Valery Swallow Protocol Brief Cognitive Screen What is your name? Normal, Where are you db right now? Normal, What year is it? Normal. Oral Mechanism Examination Facial Symmetry: Normal, Motion: Normal, Lip Closure: Normal, Oral Mechanism Result: Normal. 3 oz Water Swallow Challenge: Pt able to drink all water without stopping, coughing, choking or throat clearing: Yes Result: PASS Notified: Elian DE LA O. Assessment: 17:10 Reassessment: Patient appears in no apparent distress at this time. Patient and/or db family updated on plan of care and expected duration. Pain level reassessed. Patient is alert, oriented x 3, equal unlabored respirations, skin warm/dry/pink. patient ambulatory into ER with steady gate. Complains of right sided weakness. 17:14 Reassessment: patient in CT. db 17:14 VAN Scoring: Arm Drift: Patients demonstrates NO arm weakness. Patient is VAN Negative. db Visual Disturbance: No visual disturbance noted. Aphasia: No aphasia noted. Neglect: No neglect noted. TNKase (Tenecteplase) Screening: Indications: Definite evidence of stroke, ischemic, embolic, or hypertensive: Yes. 17:17 Pain: Pain began 1300. ap3 17:20 Pain: Pain does not radiate. ap3 17:20 Reassessment: Patient appears in no apparent distress at this time. Patient and/or db family updated on plan of care and expected duration. Pain level reassessed. Patient is alert, oriented x 3, equal unlabored respirations, skin warm/dry/pink. Neuro: Level of Consciousness is awake, alert, obeys commands, Oriented to person, place, time, situation, Speech is normal, Facial symmetry appears normal. 17:30 Reassessment: See patient chart for signed consent. db 17:35 Reassessment: See IV thrombolytic vital sign and Neurological flowsheet on patient db chart. 17:35 Reassessment:. db 18:50 Valery Swallow Protocol Brief Cognitive Screen What is your name? Normal, Where are you db right now? Normal, What year is it? Normal. Oral Mechanism Examination Facial Symmetry: Normal, Motion: Normal, Lip Closure: Normal, Oral Mechanism Result: Normal. 3 oz Water Swallow Challenge: Pt able to drink all water without stopping, coughing, choking or throat clearing: Yes Result: PASS Notified: Elian DE LA O. 19:13 Reassessment: patient to CT. General: Appears in no apparent distress. comfortable, db Behavior is calm, cooperative. Respiratory: Airway is patent Respiratory effort is even, unlabored, Respiratory pattern is regular, symmetrical. GI: Abdomen is round distended. Vital Signs: 17:13 BP 166 / 105; Pulse 88; Resp 19; Pulse Ox 98% ; Weight 108.86 kg; ap3 17:35 BP 158 / 97; Pulse 75; Pulse Ox 97% ; db 18:35 BP 130 / 102; Pulse 77; Resp 18; Pulse Ox 98% on R/A; db 18:50 BP 112 / 81; Pulse 71; Resp 18; Pulse Ox 98% on R/A; db 18:35 patient moving. db Vitals: 18:35 Cardiac Rhythm Assessment Regular Sinus rhythm. db NIH Stroke Scale Scores: 17:14 NIHSS Score: 1 db 17:17 NIHSS Score: 1 cp 18:35 NIHSS Score: 0 db ED Course: 17:02 Patient arrived in ED. rg4 17:02 Elian Wynn PA is PHCP. cp 17:02 Myke Mcclain MD is Attending Physician. cp 17:14 Felisha Turner, RN is Primary Nurse. db 17:15 Triage completed. ap3 17:17 Arm band placed on right wrist. ap3 17:17 Placed in gown. Bed in low position. Call light in reach. Side rails up X2. Cardiac ap3 monitor on. Pulse ox on. NIBP on. 17:17 Patient maintains SpO2 saturation greater than 95% on room air. ap3 17:18 EKG done per protocol. Performed by ED Staff. Shown to ED physician. Labs ordered per ss protocol. Drawn by ED staff. 17:18 20 gauge right AC using aseptic technique. ss 17:23 CT Stroke Brain w/o Contrast In Process Unspecified. EDMS 17:37 Basic Metabolic Panel Sent. ss 17:37 CBC with Diff Sent. ss 17:37 Hepatic Function Sent. ss 17:37 High Sensitivity Troponin Sent. ss 17:37 Magnesium Sent. ss 17:37 Protime (+inr) Sent. ss 17:37 Ptt, Activated Sent. ss 18:10 Stroke CXR 1 View In Process Unspecified. EDMS 18:24 Jonas Seth FNP-C is Hospitalizing Provider. cp 18:26 Alex Cabrera MD is Hospitalizing Provider. la1 19:18 Report given to JODIE Oh. Warm blanket given. db 19:23 CT Head Angio In Process Unspecified. EDMS 19:23 CT Neck Angio In Process Unspecified. EDMS 03 04:47 No provider procedures requiring assistance completed. Patient admitted, IV remains in aa9 place. Administered Medications: 06/25 17:34 Drug: Labetalol 5 mg Route: IV; Rate: calculated rate; Infused Over: 2 mins; Site: right antecubital; 17:40 Follow up: IV Status: Completed infusion db 17:35 Drug: TNK FOR STROKE - Tenecteplase 0.25 mg/kg {Co-Signature: db (Felisha Turner ss RN).} {Note: 25 mg.} Route: IV; Rate: per protocol; Site: left antecubital; 17:36 Follow up: Response: No adverse reaction; IV Status: Completed infusion db 18:00 Drug: foLIC Acid 1 mg Route: IVPB; Site: right antecubital; db 18:35 Follow up: Response: No adverse reaction; IV Status: Completed infusion; IV Intake: 10mldb Medication: 06/26 04:49 VIS not applicable for this client. aa9 Intake: 06/25 18:35 IV: 10ml; Total: 10ml. db Outcome: 18:25 Decision to Hospitalize by Provider. cp 19:00 Admitted to ER Hold. [facility]. aa9 19:00 Condition: stable 19:00 Instructed on the need for admit. aa9 06/26 19:47 Patient left the ED. lg3 NIH Stroke Scale - NIH Stroke Score Date: 06/25/2022 Time: 17:14 Total Score = 1 1a. Level of Consciousness (LOC) - 0(Alert) 1b. Level of Consciousness (LOC) (Month \T\ Age) - 0(Both) 1c. LOC Commands (Open \T\ Closes Eyes/Barrel Tester And Drainer) - 0(Both) 2. Best Gaze (Lateral Gaze Paresis) - 0(Normal) 3. Visual Field Loss - 0(No visual loss) 4. Facial Palsy - 0(Normal) 5a. Left Arm: Motor (10-second hold) - 0(No drift) 5b. Right Arm: Motor (10-second hold) - 0(No drift) 6a. Left Leg: Motor (5-second hold - always test supine) - 0(No drift) 6b. Right Leg: Motor (5-second hold - always test supine) - 0(No drift) 7. Limb Ataxia (finger/nose \T\ heel/mak - test with eyes open) - 0(Absent) 8. Sensory Loss (pinprick arms/legs/face) - 1(Mild to moderate loss) 9. Best Language: Aphasia (description/naming/reading) - 0(No aphasia) 10. Dysarthria (speech clarity - read or repeat words) - 0(Normal) 11. Extinction and Inattention (visual/tactile/auditory/spatial/personal) - 0(No abnormality) Initials: db NIH Stroke Scale - NIH Stroke Score Date: 06/25/2022 Time: 17:17 Total Score = 1 1a. Level of Consciousness (LOC) - 0(Alert) 1b. Level of Consciousness (LOC) (Month \T\ Age) - 0(Both) 1c. LOC Commands (Open \T\ Closes Eyes/Barrel Tester And Drainer) - 0(Both) 2. Best Gaze (Lateral Gaze Paresis) - 0(Normal) 3. Visual Field Loss - 0(No visual loss) 4. Facial Palsy - 0(Normal) 5a. Left Arm: Motor (10-second hold) - 0(No drift) 5b. Right Arm: Motor (10-second hold) - 0(No drift) 6a. Left Leg: Motor (5-second hold - always test supine) - 0(No drift) 6b. Right Leg: Motor (5-second hold - always test supine) - 0(No drift) 7. Limb Ataxia (finger/nose \T\ heel/mak - test with eyes open) - 0(Absent) 8. Sensory Loss (pinprick arms/legs/face) - 1(Mild to moderate loss) 9. Best Language: Aphasia (description/naming/reading) - 0(No aphasia) 10. Dysarthria (speech clarity - read or repeat words) - 0(Normal) 11. Extinction and Inattention (visual/tactile/auditory/spatial/personal) - 0(No abnormality) Initials: cp NIH Stroke Scale - NIH Stroke Score Date: 06/25/2022 Time: 18:35 Total Score = 0 1a. Level of Consciousness (LOC) - 0(Alert) 1b. Level of Consciousness (LOC) (Month \T\ Age) - 0(Both) 1c. LOC Commands (Open \T\ Closes Eyes/Barrel Tester And Drainer) - 0(Both) 2. Best Gaze (Lateral Gaze Paresis) - 0(Normal) 3. Visual Field Loss - 0(No visual loss) 4. Facial Palsy - 0(Normal) 5a. Left Arm: Motor (10-second hold) - 0(No drift) 5b. Right Arm: Motor (10-second hold) - 0(No drift) 6a. Left Leg: Motor (5-second hold - always test supine) - 0(No drift) 6b. Right Leg: Motor (5-second hold - always test supine) - 0(No drift) 7. Limb Ataxia (finger/nose \T\ heel/mak - test with eyes open) - 0(Absent) 8. Sensory Loss (pinprick arms/legs/face) - 0(Normal) 9. Best Language: Aphasia (description/naming/reading) - 0(No aphasia) 10. Dysarthria (speech clarity - read or repeat words) - 0(Normal) 11. Extinction and Inattention (visual/tactile/auditory/spatial/personal) - 0(No abnormality) Initials: db Signatures: Dispatcher [employer] EDMS Deandra Florence, JODIE RN ss Jonas Seth, ENTRY LEVEL BUYER-C ENTRY LEVEL BUYER-Cla1 Elian Wynn PA PA Nata Alvarez rg4 Liz Tate RN RN ap3 Tiffany Mccain RN RN lg3 Althea Edwards RN RN aa9 Felisha Turner, JODIE RN db Felisha Turner RN db Corrections: (The following items were deleted from the chart) 06/25 17:49 17:36 BP 158 / 97; Pulse 75bpm; Pulse Ox 97%; ss db 19:14 17:10 Reassessment: patient ambulatory into ER with steady gate. Complains of db right sided weakness. db
--- NOTE | 2022-06-25 18:25 | EDPHYS ---
Physician Documentation [facility] Name: Niranjan Arteaga Age: 56 yrs Sex: Male : 1965 Arrival Date: 06/25/2022 Time: 17:02 Bed 14 Private MD: ED Physician Myke Mcclain HPI: 06/25 17:20 This 56 yrs old Male presents to ER via Ambulatory with complaints of Chest Pain, S/S cp of Possible Stroke. 17:20 The patient's problem is reported as paresthesias. cp 17:20 Onset: The symptoms/episode began/occurred sometime after 1300. cp 17:20 Duration: The episode is continuous. Context: occurred at home. Associated signs and cp symptoms: Pertinent positives: chest pain, headache, weakness, Pertinent negatives: abdominal pain, diaphoresis, palpitations. Severity of symptoms: in the emergency department the symptoms are unchanged despite home interventions. Patient's baseline: Neuro: alert and fully oriented, Ambulation: walks without assistance, Speech: normal, The patient has a previous history of CVA. Historical: - Allergies: 17:15 Codeine; ap3 - Immunization history:: Client reports receiving the 2nd dose of the Covid vaccine, Flu vaccine is not up to date. - Social history:: Smoking status: Patient reports use of chewing tobacco. ROS: 17:23 Constitutional: Negative for body aches, chills, fever, poor PO intake. cp 17:23 Cardiovascular: Positive for chest pain, Negative for edema, palpitations. cp 17:23 Respiratory: Negative for cough, shortness of breath, wheezing. 17:23 Neuro: Positive for numbness, of the right arm and right lower leg, generalized weakness. 17:23 Eyes: Negative for injury, pain, redness, and discharge. cp 17:23 ENT: Negative for drainage from ear(s), ear pain, sore throat, difficulty swallowing, cp difficulty handling secretions. 17:23 Abdomen/GI: Negative for abdominal pain, vomiting, diarrhea, constipation. 17:23 All other systems are negative. Exam: 17:25 Radiologist reports: no acute findings cp 17:25 Head/Face: Normocephalic, atraumatic. cp 17:25 Constitutional: The patient appears in no acute distress, alert, awake, non-toxic, well developed, well nourished, anxious. 17:25 Eyes: Periorbital structures: appear normal, Pupils: equal, round, and reactive to cp light and accomodation, Extraocular movements: intact throughout, Conjunctiva: normal, no exudate, no injection, Sclera: no appreciated abnormality, Lids and lashes: appear normal, bilaterally. 17:25 ENT: External ear(s): are unremarkable, Nose: is normal, Mouth: Lips: moist, Oral mucosa: pink and intact, moist, Posterior pharynx: is normal, airway is patent, no erythema, no exudate. 17:25 Neck: ROM/movement: is normal, is supple, without pain, no range of motions limitations, no meningismus. 17:25 Chest/axilla: Inspection: normal, Palpation: is normal, no crepitus, no tenderness. 17:25 Cardiovascular: Rate: normal, Rhythm: regular, Edema: is not appreciated, JVD: is not appreciated. 17:25 Respiratory: the patient does not display signs of respiratory distress, Respirations: normal, no use of accessory muscles, no retractions, labored breathing, is not present, Breath sounds: are clear throughout, no decreased breath sounds, no stridor, no wheezing. 17:25 Abdomen/GI: Inspection: abdomen appears normal, Palpation: abdomen is soft and non-tender, in all quadrants. 17:25 Skin: cellulitis, is not appreciated, no rash present. 17:25 Neuro: Orientation: to person, place \\T\\ time. Mentation: is normal, Cerebellar function: Romberg testing is negative, normal finger to nose testing, heel to mak testing is normal, Motor: moves all fours, general weakness, Sensation: light touch is decreased in the right arm and right lower leg. 17:29 ECG was reviewed by the Attending Physician. Vital Signs: 17:13 BP 166 / 105; Pulse 88; Resp 19; Pulse Ox 98% ; Weight 108.86 kg; ap3 17:35 BP 158 / 97; Pulse 75; Pulse Ox 97% ; db 18:35 BP 130 / 102; Pulse 77; Resp 18; Pulse Ox 98% on R/A; db 18:50 BP 112 / 81; Pulse 71; Resp 18; Pulse Ox 98% on R/A; db 18:35 patient moving. db NIH Stroke Scale Scores: 17:14 NIHSS Score: 1 db 17:17 NIHSS Score: 1 cp 18:35 NIHSS Score: 0 db MDM: 17:15 Patient medically screened. cp 17:27 ED course: consult with DR Truong who recommends TNK. cp 17:33 ED course: Pt states that he noticed onset of RLE weakness and numbness "a little after rn 1 o'clock". Explained to patient importance of timing for TNKase, understands. Pt reports sudden onset of RLE weakness, difficulty walking, and RLE tingling/numb. JAIRON Fam, spoke with Dr. Truong for consultation and discussion of case, Dr. Truong recommended giving TNKase, patient consented for TNKase by me, and does not have any contraindications. BP elevated, will given labetalol prior to TNKase. . 18:30 Data reviewed: vital signs, nurses notes. cp 18:30 Differential diagnosis: CVA, TIA, drug effects. Consideration of Admission/Observation cp Patient was admitted/placed on observation. Management of patient was discussed with the following: Hospitalist: Jonas Seth NP will admit patient after discussion. Care significantly affected by the following chronic conditions: Hypertension. Counseling: I had a detailed discussion with the patient and/or guardian regarding: the historical points, exam findings, and any diagnostic results supporting the discharge/admit diagnosis, lab results, radiology results, the need for further work-up and treatment in the hospital. Response to treatment: patient reports decreased sensation to right arm and right lower leg resolved, continued numbness to right foot. 06/25 17:16 Order name: Basic Metabolic Panel; Complete Time: 18:01 cp 06/25 17:16 Order name: CBC with Diff; Complete Time: 18:17 cp 06/25 17:16 Order name: Hepatic Function; Complete Time: 18:17 cp 06/25 17:16 Order name: High Sensitivity Troponin; Complete Time: 18:17 cp 06/25 17:16 Order name: Magnesium; Complete Time: 18:17 cp 06/25 17:16 Order name: Protime (+inr); Complete Time: 18:17 cp 06/25 17:16 Order name: Ptt, Activated; Complete Time: 18:17 cp 06/25 17:16 Order name: UDS; Complete Time: 18:57 cp 06/25 17:16 Order name: CT Stroke Brain w/o Contrast; Complete Time: 17:34 cp 06/25 17:34 Interpretation: Report reviewed. cp 06/25 17:16 Order name: Stroke CXR 1 View; Complete Time: 18:17 cp 06/25 17:16 Order name: EKG; Complete Time: 17:17 cp 06/25 17:16 Order name: Accucheck; Complete Time: 18:12 cp 06/25 17:16 Order name: Cardiac monitoring; Complete Time: 17:21 cp 06/25 17:16 Order name: EKG - Nurse/Tech; Complete Time: 17:37 cp 06/25 17:16 Order name: IV Saline Lock; Complete Time: 17:37 cp 06/25 17:16 Order name: Labs collected and sent; Complete Time: 17:37 cp 06/25 17:16 Order name: NPO; Complete Time: 18:00 cp 06/25 17:16 Order name: O2 Per Protocol; Complete Time: 17:21 cp 06/25 17:16 Order name: O2 Sat Monitoring; Complete Time: 17:21 cp 06/25 17:16 Order name: Stroke Swallow Screen; Complete Time: 18:53 cp 06/25 17:35 Order name: SARS RAPID; Complete Time: 18:17 cp 06/25 18:21 Order name: Urine Dipstick-Ancillary; Complete Time: 18:23 EDMS 06/25 18:23 Order name: CT Head Angio; Complete Time: 19:26 cp 06/25 18:23 Order name: CT Neck Angio; Complete Time: 19:26 cp 06/25 23:28 Order name: Troponin High Sensitivity; Complete Time: 09:50 EDMS 06/26 02:49 Order name: CBC with Automated Diff; Complete Time: 09:50 EDMS 06/26 03:08 Order name: Basic Metabolic Panel; Complete Time: 09:50 EDMS 06/26 03:08 Order name: Troponin High Sensitivity; Complete Time: 09:50 EDMS 06/26 03:08 Order name: Lipid Profile; Complete Time: 09:50 EDMS 06/26 03:08 Order name: T4,Total; Complete Time: 09:50 EDMS 06/26 03:08 Order name: Thyroid Stimulating Hormone; Complete Time: 09:50 EDMS 06/26 03:34 Order name: Hemoglobin A1c; Complete Time: 09:50 EDMS 06/26 08:41 Order name: US; Complete Time: 09:50 EDMS 06/26 11:13 Order name: MRI; Complete Time: 18:57 EDMS 06/26 17:55 Order name: CT; Complete Time: 18:57 EDMS EC:29 Rate is 87 beats/min. Rhythm is regular. MS interval is normal. QRS interval is normal. cp QT interval is normal. T waves are Inverted in lead aVR. Interpreted by me. Reviewed by me. Administered Medications: 17:34 Drug: Labetalol 5 mg Route: IV; Rate: calculated rate; Infused Over: 2 mins; Site: db right antecubital; 17:40 Follow up: IV Status: Completed infusion db 17:35 Drug: TNK FOR STROKE - Tenecteplase 0.25 mg/kg {Co-Signature: db (Felisha montalvo RN).} {Note: 25 mg.} Route: IV; Rate: per protocol; Site: left antecubital; 17:36 Follow up: Response: No adverse reaction; IV Status: Completed infusion db 18:00 Drug: foLIC Acid 1 mg Route: IVPB; Site: right antecubital; db 18:35 Follow up: Response: No adverse reaction; IV Status: Completed infusion; IV Intake: 10mldb Disposition: 06/27 10:30 Co-signature as Attending Physician, Myke Mcclain MD I agree with the assessment and rn plan of care. I reviewed the patient's care provided by Advanced Practice Provider \\T\\ agree w/ the diagnosis \\T\\ care plan. I personally saw the pt \\T\\ performed a substantive portion of the visit, incldng all aspects of the (History/Exam/Medical Decision Making). Disposition Summary: 06/25/22 18:25 Hospitalization Ordered Hospitalization Status: Inpatient Admission cp Condition: Stable cp Problem: new cp Symptoms: have improved cp Bed/Room Type: Standard cp Provider: Alex Cabrera(06/25/22 18:26) la1 Location: Telemetry/MedSurg (Inpatient)(06/26/22 18:18) ja1 Room Assignment: 223(06/26/22 18:18) ja1 Diagnosis - Paresthesia of skin cp - Weakness cp Forms: - Medication Reconciliation Form cp - SBAR form cp NIH Stroke Scale - NIH Stroke Score Date: 06/25/2022 Time: 17:14 Total Score = 1 1a. Level of Consciousness (LOC) - 0(Alert) 1b. Level of Consciousness (LOC) (Month \\T\\ Age) - 0(Both) 1c. LOC Commands (Open \\T\\ Closes Eyes/Floor Assembler) - 0(Both) 2. Best Gaze (Lateral Gaze Paresis) - 0(Normal) 3. Visual Field Loss - 0(No visual loss) 4. Facial Palsy - 0(Normal) 5a. Left Arm: Motor (10-second hold) - 0(No drift) 5b. Right Arm: Motor (10-second hold) - 0(No drift) 6a. Left Leg: Motor (5-second hold - always test supine) - 0(No drift) 6b. Right Leg: Motor (5-second hold - always test supine) - 0(No drift) 7. Limb Ataxia (finger/nose \\T\\ heel/mak - test with eyes open) - 0(Absent) 8. Sensory Loss (pinprick arms/legs/face) - 1(Mild to moderate loss) 9. Best Language: Aphasia (description/naming/reading) - 0(No aphasia) 10. Dysarthria (speech clarity - read or repeat words) - 0(Normal) 11. Extinction and Inattention (visual/tactile/auditory/spatial/personal) - 0(No abnormality) Initials: db NIH Stroke Scale - NIH Stroke Score Date: 06/25/2022 Time: 17:17 Total Score = 1 1a. Level of Consciousness (LOC) - 0(Alert) 1b. Level of Consciousness (LOC) (Month \\T\\ Age) - 0(Both) 1c. LOC Commands (Open \\T\\ Closes Eyes/Floor Assembler) - 0(Both) 2. Best Gaze (Lateral Gaze Paresis) - 0(Normal) 3. Visual Field Loss - 0(No visual loss) 4. Facial Palsy - 0(Normal) 5a. Left Arm: Motor (10-second hold) - 0(No drift) 5b. Right Arm: Motor (10-second hold) - 0(No drift) 6a. Left Leg: Motor (5-second hold - always test supine) - 0(No drift) 6b. Right Leg: Motor (5-second hold - always test supine) - 0(No drift) 7. Limb Ataxia (finger/nose \\T\\ heel/mak - test with eyes open) - 0(Absent) 8. Sensory Loss (pinprick arms/legs/face) - 1(Mild to moderate loss) 9. Best Language: Aphasia (description/naming/reading) - 0(No aphasia) 10. Dysarthria (speech clarity - read or repeat words) - 0(Normal) 11. Extinction and Inattention (visual/tactile/auditory/spatial/personal) - 0(No abnormality) Initials: cp NIH Stroke Scale - NIH Stroke Score Date: 06/25/2022 Time: 18:35 Total Score = 0 1a. Level of Consciousness (LOC) - 0(Alert) 1b. Level of Consciousness (LOC) (Month \\T\\ Age) - 0(Both) 1c. LOC Commands (Open \\T\\ Closes Eyes/Floor Assembler) - 0(Both) 2. Best Gaze (Lateral Gaze Paresis) - 0(Normal) 3. Visual Field Loss - 0(No visual loss) 4. Facial Palsy - 0(Normal) 5a. Left Arm: Motor (10-second hold) - 0(No drift) 5b. Right Arm: Motor (10-second hold) - 0(No drift) 6a. Left Leg: Motor (5-second hold - always test supine) - 0(No drift) 6b. Right Leg: Motor (5-second hold - always test supine) - 0(No drift) 7. Limb Ataxia (finger/nose \\T\\ heel/mak - test with eyes open) - 0(Absent) 8. Sensory Loss (pinprick arms/legs/face) - 0(Normal) 9. Best Language: Aphasia (description/naming/reading) - 0(No aphasia) 10. Dysarthria (speech clarity - read or repeat words) - 0(Normal) 11. Extinction and Inattention (visual/tactile/auditory/spatial/personal) - 0(No abnormality) Initials: db Signatures: Dispatcher [employer] EDElian Faye MD MD cha Nieto, Roman, MD MD rn Smirch, Shelby, RN RN ss Attema, Lee, CUSHION SEWER-C CUSHION SEWER-Cla1 Elian Wynn PA PA cp Garcia, Cindy, RN RN Delfin Snowden, RN RN [email or web address] Liz Tate RN JODIE ap3 Felisha Turner RN RN db Felisha Turner RN db Corrections: (The following items were deleted from the chart) 06/25 17:48 17:33 ED course: Pt states that he noticed onset of RLE weakness and numbness rn "a little after 1 o'clock". Explained to patient importance of timing for TNKase, understands. Pt reports sudden onset of RLE weakness, difficulty walking, and RLE tingling/numb. JAIRON Fam, spoke with Dr. Truong for consultation and discussion of case, patient consented for TNKase by me, and does not have any contraindications. BP elevated, will given labetalol prior to TNKase. . rn 18:26 18:25 Jonas Seth cp la1 20:54 18:25 Intensive Care Unit cp cg 20:54 18:25 cp cg 06/26 18:18 06/25 20:54 [facility] ER HOLD cg ja1 06/26 18:18 06/25 20:54 ERHOLD- cg ja1
[2022-06-25 18:31] LABS: Barbiturates NEGATIVE (NEGATIVE); Benzodiazepines NEGATIVE (NEGATIVE); Cocaine NEGATIVE (NEGATIVE); METHAMPHETAM NEGATIVE (NEGATIVE); Methadone NEGATIVE (NEGATIVE); Opiates NEGATIVE (NEGATIVE); Phencyclidine NEGATIVE (NEGATIVE); THC Cannibis POSITIVE (NEGATIVE)
[2022-06-25] MEDS ORDERED: FOLIC ACID 5 MG/ML VIAL ONE (18:35)
--- NOTE | 2022-06-25 19:24 | RAD REPORT ---
EXAM DESCRIPTION: CT - Head angio - 06/25/2022 7:16 pm CLINICAL HISTORY: STROKE ALERT COMPARISON: Ct Stroke Brain Wo Cont dated 06/25/2022; Ct Stroke Brain Wo Cont dated 02/03/2018 TECHNIQUE: CT angiography of the head was performed with maximum intensity reformatted images (MIPs) . All CT scans are performed using dose optimization technique as appropriate and may include automated exposure control or mA/KV adjustment according to patient size. FINDINGS: Anterior circulation: No aneurysm or large vessel occlusion. No hemodynamically significant stenosis. No arteriovenous malf ormation identified. Posterior circulation: No aneurysm or large vessel occlusion. No hemodynamically significant stenosis. No arteriovenous malf ormation identified. IMPRESSION: No significant flow abnormality is detected.
--- NOTE | 2022-06-25 19:25 | RAD REPORT ---
EXAM DESCRIPTION: CT - Neck Angio - 06/25/2022 7:16 pm CLINICAL HISTORY: NUMBNESS COMPARISON: <Comparisons> TECHNIQUE: CT angiography of the neck vessels was performed with maximum intensity reformatted image s/MIPs. All CT scans are performed using dose optimization technique as appropriate and may include automated exposure control or mA/KV adjustment according to patient size. FINDINGS: A left aortic arch is identified with normal three vessel configuration of the great vesse ls. No significant flow abnormality is seen of the common carotid bilaterally. No significant stenosis is identified involving the cervical segments of both internal carotid arteri es. Normal flow is seen within both vertebral arteries. Mild left dominant. Multilevel degenerative changes are present in the spine. IMPRESSION: No significant flow abnormality of the neck vessels is identified.
--- NOTE | 2022-06-25 19:33 | P.HP ---
Certification for Inpatient Patient admitted to: Observation With expected LOS: <2 Midnights Patient will require the following post-hospital care: None Practitioner: I am a practitioner with admitting privileges, knowledge of patient current condition, hospital course, and medical plan of care. Services: Services provided to patient in accordance with Admission requirements found in Title 42 Section 412.3 of the Code of Federal Regulations Patient History Date of Service: 06/25/22 Reason for admission: Paresthesias, weakness S/P TNK History of Present Illness: 56-year-old male with history of previous CVA, hyperlipidemia presents to the emergency department with complaint of right lower extremity paresthesias. He reports his symptoms began shortly after 1 PM today, he reports feeling generally weak as well as having headache and chest tightness at the time of onset. Upon arrival to ED his NIH was 1 for right lower extremity sensation changes present. ED provider discussed case with neurology who recommended TNK, TNKase was administered in the ED. CT head without contrast negative for acute findings CT angio head and neck negative for large vessel occlusions. Labs were unremarkable aside from UDS positive for THC. Chest x-ray negative for acute findings. Patient reports mild improvement in symptoms but still with sensation changes in the right lower extremity. ED provider wishes to admit for further evaluation and management of paresthesias/CVA rule out status post TNK. Allergies codeine Allergy (Verified 02/04/18 01:04) remains awake Home Medications: ALPRAZolam [Xanax*] 2 mg PO BEDTIME 02/04/18 Aspirin [Aspirin EC 81 MG] 81 mg PO DAILY #90 tablet. 02/04/18 Atorvastatin Calcium [Lipitor] 40 mg PO DAILY #30 tablet 02/04/18 Clopidogrel Bisulfate [Plavix*] 75 mg PO DAILY #30 tablet 02/04/18 Duloxetine HCl [Cymbalta] 60 mg PO BEDTIME 02/04/18 Folic Acid 1 mg PO DAILY #90 tablet 02/04/18 Linaclotide [Linzess] 1 cap PO DAILY 02/04/18 - Past Medical/Surgical History Diabetic: No -: CVA -: Hypertension -: Anxiety -: Hyperlipidemia -: Right knee repair -: Bilateral carpal tunnel x2 -: Bilateral elbow sx Psychosocial/ Personal History: Patient lives at home with his [id number], children - Family History Mother -: Other (see notes) Notes: Alzheimers Father -: GI disease Notes: Crohns; HTN; high cholesterol - Social History Smoking Status: Former smoker Alcohol use: Yes CD- Drugs: No Caffeine use: Yes Place of Residence: Home Review of Systems 10-point ROS is otherwise unremarkable Cardiovascular: Chest Pain Neurological: Numbness, As per HPI Physical Examination - Physical Exam General: Alert, In no apparent distress, Oriented x3 HEENT: Atraumatic, PERRLA, Mucous membr. moist/pink, EOMI, Sclerae nonicteric Neck: Supple, 2+ carotid pulse no bruit, No LAD, Without JVD or thyroid abnormality Respiratory: Clear to auscultation bilaterally, Normal air movement Cardiovascular: No edema, Regular rate/rhythm, Normal S1 S2 Capillary refill: <2 Seconds Gastrointestinal: Normal bowel sounds, No tenderness Musculoskeletal: No tenderness Integumentary: No rashes Neurological: Normal speech, Normal strength at 5/5 x4 extr, Normal tone, Normal affect, Other (NIH 1), Abnormal sensation (Decree sensation right lower extremity) Lymphatics: No axilla or inguinal lymphadenopathy - Studies Laboratory Data (last 24 hrs) 06/25/22 17:25: PT 11.0, INR 1.00, APTT 33.5 06/25/22 17:25: WBC 6.00, Hgb 15.2, Hct 45.9, Plt Count 233 06/25/22 17:25: Sodium 136, Potassium 3.8, BUN 12, Creatinine 1.08, Glucose 107 H, Magnesium 2.0, Total Bilirubin 0.4, AST 18, ALT 27, Alkaline Phosphatase 93 Assessment and Plan - Plan Assessment: Right lower extremity paresthesias/dizziness S/P TNK R/O CVA Chest pain rule out ACS Hypertension Hyperlipidemia Plan: Right lower extremity paresthesias/dizziness S/P TNK R/O CVA NIH with RLE sensation changes, mildly improved now after TNK given around [address] head without contrast negative for acute findings CT head and neck angio negative for large vessel occlusion. MRI protocol, carotid Doppler, echocardiogram ordered as well as speech/physical therapy consultations. Hold aspirin, Lovenox for first 24 hours, restart after that. Repeat CT without contrast in 24 hours after TNK to rule out hemorrhagic conversion. Chest pain rule out ACS Patient described chest tightness at onset of right lower extremity symptoms, initial troponin negative, will trend troponins, monitor on telemetry and consult cardiology. Hypertension Reports being taken off of his hypertensive medications by his PCP a couple years ago, may require prescription for antihypertensive agents at discharge. Hyperlipidemia Lipid panel ordered. Statin ordered. DVT PPX: SCD until 24 hour after TNK, then Lovenox Code status: Full Discharge Plan: Home Plan to discharge in: 24 Hours - Advance Directives Does patient have a Living Will: No Does patient have a Durable POA for Healthcare: No - Code Status/Comfort Care Code Status Assessed: Yes (Full code) Critical Care: No Time Spent Managing Pts Care (In Minutes): 70
[2022-06-25] MEDS: NA CHLORIDE 0.9% 1,000 ML IV SCH (22:09)
[2022-06-25] MEDS ORDERED: ONDANSETRON 4 MG/2 ML VIAL IV PRN (22:09)
[2022-06-25] MEDS ORDERED: ACETAMINOPHEN 500 MG TAB PO PRN (22:09)
[2022-06-25] MEDS: ATORVASTATIN 20 MG TAB PO SCH (22:09)
[2022-06-26] MEDS ORDERED: ATORVASTATIN 20 MG TAB ONE (00:58)
[2022-06-26] MEDS ORDERED: NA CHLORIDE 0.9% 1,000 ML ONE (00:58)
[2022-06-26] MEDS ORDERED: ACETAMINOPHEN 500 MG TAB ONE (02:10)
[2022-06-26 02:37] VITALS: BMI 36.4
[2022-06-26 02:46] LABS: Absolute Lymphocytes (CBC) 2.4 K/uL (0.7-4.9); Hematocrit 40.5 % (39.6-49.0); Lymphocytes % 39.5 % (15.3-44.8); MCV 83.5 fL (80-100); MPV 8.1 fL (7.6-11.3); RBC Red Blood Cell Count 4.85 M/uL (4.33-5.43)
[2022-06-26 03:06] LABS: Potassium 3.5 mmol/L (3.5-5.1); T4,Total 8.6 ug/dL (4.5-12.1); Thyroid Stimulating Hormone 2.59 uIU/mL (0.358-3.740); Troponin High Sensitivity 7.5 pg/mL (<58.9)
--- NOTE | 2022-06-26 08:40 | RAD REPORT ---
EXAM DESCRIPTION: USCarotid Artery Bilateral06/26/2022 12:03 am CLINICAL HISTORY: CVA COMPARISON: None FINDINGS: The velocity of the right internal carotid artery equals 143 cm/sec. The right ICA/CCA rat io 1.8 The velocity of the left internal carotid artery equals 115 cm/sec. The left ICA/CCA ratio 1.2 Mild plaque is present within the carotid arteries. The vertebral arteries demonstrate antegrade flow IMPRESSION: Mild plaque within the carotid arteries without evidence of a significant stenosis NASCET criteria used. Mild 0-49% stenosis Moderate 50-69% stenosis Severe 70-99% stenosis
[2022-06-26] MEDS: FOLIC ACID 1 MG TABLET PO SCH (09:00)
[2022-06-26] MEDS ORDERED: FOLIC ACID 1 MG TABLET ONE (09:00)
--- NOTE | 2022-06-26 11:12 | RAD REPORT ---
EXAM DESCRIPTION: MRI - Brain Wo Cont - 06/26/2022 10:25 am CLINICAL HISTORY: Right leg numbness COMPARISON: Head CT June 25, 2022 TECHNIQUE: Axial, sagittal, and coronal magnetic resonance images of the brain were obtained. FINDINGS: No significant abnormal signal within the brain Diffusion-weighted/ADC mapping does not reveal evidence of acute infarction. The ventricles are normal caliber. An extra-axial fluid collection is not noted. Fluid within the sinuses/mastoids is not seen IMPRESSION: No acute intracranial abnormality noted
--- NOTE | 2022-06-26 11:15 | EKG ---
Test Date: 2022-06-25 Test Time: 17:11:28 Geriatrics Physician: DEBORAH MEASUREMENT RESULTS: Intervals: Rate: 100 CA: 122 QRSD: 80 QT: 354 QTc: 456 Silt: P: 79 CA: 122 QRS: -18 T: 56 INTERPRETIVE STATEMENTS: Normal Sinus rhythm Normal ECG Electronically Signed On 06-26-22 11:14:53 PRESIDENT + PUBLISHER by Walter Stanton
[2022-06-26] MEDS: NA CHLORIDE 0.9% 1,000 ML IV SCH ×2 (11:29→20:11)
--- NOTE | 2022-06-26 16:53 | P.PN ---
Subjective Date of Service: 06/26/22 Chief Complaint: Paresthesias, weakness S/P TNK No acute events overnight. He has done well post-tenetectaplase. His neurologic symptoms have completely resolved. He denies any chest pain, palpitations, or shortness of breath this morning. Review of Systems 10-point ROS is otherwise unremarkable Physical Examination - Vital Signs Temperature: 97.8 F Blood Pressure: 143/92 Pulse: 86 Respirations: 18 Pulse Ox (%): 96 - Physical Exam General: Alert, In no apparent distress, Oriented x3 HEENT: Atraumatic, PERRLA, Mucous membr. moist/pink, EOMI, Sclerae nonicteric Neck: JVD not distended Respiratory: Clear to auscultation bilaterally, Normal air movement Cardiovascular: No edema, Regular rate/rhythm, Normal S1 S2, No gallops, No rubs, No murmurs Gastrointestinal: Normal bowel sounds, Soft and benign, Non-distended, No tenderness, No rebound, No guarding Musculoskeletal: No clubbing Integumentary: No rashes Neurological: Normal speech, Normal strength at 5/5 x4 extr, Normal tone, Sensation intact, Cranial nerves 3-12 intact, Normal reflexes 2+, Normal affect - Studies Laboratory Data (last 24 hrs) 06/26/22 02:00: Sodium 141 D, Potassium 3.5, BUN 13, Creatinine 1.01, Glucose 115 H, Triglycerides 131, Cholesterol 166, HDL Cholesterol 47, Cholesterol/HDL Ratio 3.53 06/26/22 02:00: WBC 6.10, Hgb 13.6 D, Hct 40.5, Plt Count 212 06/25/22 17:25: PT 11.0, INR 1.00, APTT 33.5 06/25/22 17:25: WBC 6.00, Hgb 15.2, Hct 45.9, Plt Count 233 06/25/22 17:25: Sodium 136, Potassium 3.8, BUN 12, Creatinine 1.08, Glucose 107 H, Magnesium 2.0, Total Bilirubin 0.4, AST 18, ALT 27, Alkaline Phosphatase 93 Assessment And Plan - Plan NIH Stroke Scale 1a. Level of consciousness: 0 - Alert; keenly responsive 1b. LOC questions: 0 - Both questions right 1c. LOC commands: 0 - Performs both tasks 2. Best Gaze: 0 - Normal 3. Visual: 0 - No visual loss 4. Facial Palsy: 0 - Normal symmetry 5a. Motor left arm: 0 - No drift for 10 seconds 5b. Motor right arm: 0 - No drift for 10 seconds 6a. Motor left le - No drift for 5 seconds 6b. Motor right le - No drift for 5 seconds 7. Limb ataxia: 0 - No ataxia 8. Sensory: 0 - Normal; no sensory loss 9. Best Language: 0 - Normal; no aphasia 10. Dysarthria: 0 - Normal 11. Extinction and Inattention: 0 - No abnormality 12. Distal motor function: 0 - No abnormality Total Score: 0 # Dizziness with Right Lower Extremity Paraesthesis s/p Tenecteplase # History of Cerebrovascular Accident # Hypertension # Hyperlipidemia - Consulted Neurology - recommendations appreciated - No neurologic deficits on my exam - NIHSS = 0 - Tight blood pressure control on tenecteplase - q4hr neurochecks - CT head = "no acute intracranial abnormality." - CT head angiogram = "no significant flow abnormality is detected." - CT neck angiogram = "no significant flow abnormality of the neck vessels is identified." - Carotid artery ultrasound = "mild plaque within the carotid arteries without evidence of a significant stenosis" - MRI brain = pending - Transthoracic echcardiogram = pending - CT head 24-post TNK = pending - PT/OT evaluation requested - Risk profile: - Hgb A1c = 5.4 % - Lipid panel = TC 166, LDL 93, HDL 47, TG 131 - TSH = 2.59 Started folic acid + atorvastatin - Start aspirin if 24-hour post TNK CT head improved Alex Cabrera M.D.
--- NOTE | 2022-06-26 17:30 | EKG ---
Test Date: 2022-06-25 Test Time: 17:24:59 Film Cutter: DEBORAH MEASUREMENT RESULTS: Intervals: Rate: 87 HI: 138 QRSD: 70 QT: 380 QTc: 457 [place]: P: 65 HI: 138 QRS: -30 T: 52 INTERPRETIVE STATEMENTS: Normal sinus rhythm Left axis deviation Abnormal ECG Compared to ECG 06/25/2022 17:11:28 Left-axis deviation now present Electronically Signed On 06-26-22 17:29:01 LINE INSTALLATION SUPERVISOR by Walter Stanton
--- NOTE | 2022-06-26 17:54 | RAD REPORT ---
EXAM DESCRIPTION: CT - Head Brain Wo Cont - 06/26/2022 5:48 pm CLINICAL HISTORY: R/O hemorrhagic conversion S/P TNK Headache, drowsiness, CVA symptomology COMPARISON: Head angio dated 06/25/2022; Ct Stroke Brain Wo Cont dated 06/25/2022; Brain Wo Cont dated 06/26/2022; Carotid Artery Bilateral dated 06/25/2022 TECHNIQUE: All CT scans are performed using dose optimization technique as appropriate and may inclu de automated exposure control or mA/KV adjustment according to patient size. FINDINGS: No intracranial hemorrhage, hydrocephalus or extra-axial fluid collection.No areas of brai n edema or evidence of midline shift. The paranasal sinuses and mastoids are clear. The calvarium is intact. IMPRESSION: No acute intracranial abnormality.
[2022-06-26] MEDS: ATORVASTATIN 20 MG TAB PO SCH (20:11)
--- NOTE | 2022-06-26 21:26 | CON ---
Date of Consultation: 06/26/2022 Reason For Consultation: Chest pain. History Of Present Illness: A 56-year-old male who comes in to the emergency room because of numbnes s and weakness of right lower extremity, has history of previous CVA and dyslipidemia. He is status post TNK in the emergency room. He is feeling better, but he had some chest pain that is sharp, shor t lived, not related to exertion and hence I was consulted. At the time of evaluation, he had no anastasia st pain. Past Medical History: As outlined above in the HPI. Medications: Refer to reconciliation sheet for detailed list. Allergies: CODEINE. Family History: No premature coronary artery disease or cancer. Social History: He is an ex smoker. Does not drink or use any drugs. Review of Systems: All systems reviewed are negative except what is mentioned in HPI. Physical Examination: Vital Signs: Reviewed. Head and Neck: Pupils are equal, reactive to light. Intact eye movements. No JVD. No cervical lym phadenopathy. Neck is supple. Thyroid is not enlarged. Lungs: Clear to auscultation bilaterally. No rhonchi, wheezing, or crackles. No accessory muscle u se. Heart: Regular rate and rhythm. No extra sounds. Abdomen: Soft, nontender. Bowel sounds positive. No organomegaly. No masses or hernia. No rigidi ty or rebound. Extremities: No edema, clubbing, cyanosis. Intact pulses. Skin: No rash. Neurologic: Alert, awake, and oriented x3. No acute focal deficits appreciated. Investigations: Cardiac enzymes x3 are negative. BUN 13, creatinine 1.0. Hemoglobin 13.6. Assessment/recommendations: Chest pain, very atypical, likely noncardiac. Cardiac enzymes are negat wild. No further inpatient cardiac workup is needed. Once patient is stable from the stroke perspect wild, he can follow up as an outpatient and we will obtain exercise nuclear stress test on outpatient basis. Cardiology will sign off on the case. Thank you for the consult. /BRANDI Voice ID: [id number] Report ID: [id number]
--- NOTE | 2022-06-26 23:20 | CON ---
Reason For Consultation: Consultation called because of possible stroke. History Of Present Illness: Mr. Arteaga is a 56-year-old right-handed patient with reported history o f seizure with excellent recovery, dyslipidemia, and depression who came to [facility] around 1 p.m. that is on the with about an hour's worth of developing right leg numbness, w eakness, and some chest tightness. Symptoms began around 1 p.m. and he arrived to [facility] at 5:02 p.m. He had a negative head CT scan and since he had no contraindications to TNKs, he did receive TNK. NIH Stroke Scale although low at the time was around 1. His subsequent course was that his symptoms did resolve and he felt back to his baseline in several hours. His workup did reveal a positive screen for marijuana. Urinalysis was otherwise negative. Chemistries showed mildly elevat ed glucose around 107 to 115, but a normal A1c of 5.4. His liver function study was normal. Electro lyte panel normal. LDL cholesterol 93, HDL 47, TSH 2.59. Complete blood count with differential was normal. Coagulation panel was normal. COVID-19 test was negative. After admission, brain MRI show ed no acute ischemic hemorrhagic stroke. CT angiogram of head and neck showed no large vessel ischem ic disease and carotid artery ultrasound showed no evidence of hemodynamically significant stenosis. Prior to this event, the patient said he was taking aspirin off and on, but not regularly. Past Medical History: As noted including hypertension and anxiety. Past Surgical History: Right knee surgery, carpal tunnel surgery twice, and bilateral surgery on elb ows. Allergies: CODEINE. Medications: At home are Xanax, aspirin, Lipitor, Plavix, fluoxetine, folic acid, and Linzess. Family History: Alzheimer's in mother and GI disease in father with hypertension and high cholestero l. Social History: The patient has history of alcohol. Uses drugs including marijuana and smoked cigar ettes in the past. Review of Systems: Aside from what is mentioned above, he denies any fevers, chills, nausea, vomiting, myalgias, arthral gias, rash, headache, or weight change. No psychiatric complaints. No gastrointestinal or genitouri nary complaints. No neuropsychological issues. Physical Examination: Vital Signs: Blood pressure ranged from 115 to 143/80 to 92, pulse 86, respiratory rate 18, temperat ure 97.8, and oxygen saturation 96%. Weight 239 pounds, height 5 feet 8 inches, BMI is elevated. General: Mr. Arteaga is resting comfortably in the emergency room bed. HEENT: He is normocephalic, atraumatic. Sclerae anicteric. Oropharynx is pink and moist. Neck: Supple. Chest: Clear. Heart: Regular. Extremities: No clubbing, cyanosis, or edema. Neurologic: He is alert and oriented to person, place, time, and situation. He follows commands robert ropriately. Cranial nerves 2 through 12 intact. On motor examination, 5/5 strength proximally and d istally in upper and lower extremities. Sensory exam intact in upper and lower extremities. Light t ouch, pinprick, and coordination intact in upper and lower extremities. Finger-nose and fine finger movements, and [id number]. Gait has good stance with right arm swing. Assessment: Mr. Arteaga is a 56-year-old patient who reported multiple transient ischemic attacks wit h no evidence of any acute or chronic stroke on MRI and did receive TNKs after having right-sided num bness and weakness, which has resolved after TNK. He has hypertension and diabetes mellitus, but act ually hemoglobin A1c is normal, so perhaps not likely. He is not taking aspirin regularly. His LDL is slightly elevated. Plan: Aspirin 81 mg daily, folic acid 1 mg daily, and Lipitor 40 mg at bedtime. His blood pressure is to be monitored with a target of 120 to 130 systolic. He may be discharged once he and may follow up in Dr. Truong's clinic within the month, not likely that he would require any form of physical therapy. He did have a bedside swallow evaluation and was cleared for regular diet with thin liquids and eat upright at 90 degrees and continue aspirin, folic acid, and statin along with control of his blood pressures. In addition, he is advised to stop smoking marijuana. LB/MODL Voice ID: [id number] Report ID: [id number]
[2022-06-27] MEDS: NA CHLORIDE 0.9% 1,000 ML IV SCH (00:49)
[2022-06-27 06:25] LABS: Absolute Lymphocytes (CBC) 2.2 K/uL (0.7-4.9); Hematocrit 45.5 % (39.6-49.0); Lymphocytes % 36.2 % (15.3-44.8); MCV 83.7 fL (80-100); MPV 7.5 fL (7.6-11.3); RBC Red Blood Cell Count 5.43 M/uL (4.33-5.43)
[2022-06-27 06:40] LABS: Potassium 3.9 mmol/L (3.5-5.1)
[2022-06-27] MEDS: FOLIC ACID 1 MG TABLET PO SCH (07:56)
[2022-06-27 08:08] VITALS: O2SAT 99
--- NOTE | 2022-06-27 08:34 | P.DS ---
Admission Date: 06/25/22 Discharge Date: 06/27/22 Disposition: ROUTINE DISCHARGE Discharge Condition: GOOD Reason for Admission: Paresthesias, weakness S/P TNK Consultations: 1. Neurology 2. Cardiology Hospital Course: DIAGNOSES: # Dizziness with Right Lower Extremity Paraesthesis s/p Tenecteplase # History of Cerebrovascular Accident # Hypertension # Hyperlipidemia # Substance Use Disorder - [facility] HOSPITAL COURSE: Mr. Niranjan Arteaga is a pleasant 56 year old male with a past medical history significant for history of cerebrovascular accident, hypertension, and hyperlipidemia who was admitted to the [facility] on 06/25/2022 for dizziness and right lower extremity parasthesias. He was admitted to the Medicine service. Upon further evaluation, his CT head revealed, "no acute intracranial abnormality." His CT head angiogram revealed, "no significant flow abnormality is detected." His CT neck angiogram revealed, "no significant flow abnormality of the neck vessels is identified." Neurology was consulted and he was evaluated by Dr. Truong. He recommended tenecteplase, which was administered in the Emergency Department. His carotid artery ultrasound revealed, "mild plaque within the carotid arteries without evidence of a significant stenosis." His MRI brain revealed, "no acute intracranial abnormality noted." His CT head 24-hours post-tenecteplase revealed, "no acute intracranial abnormality." He was monitored in the hospital, without any neurologic deficits. Dr. Truong has cleared him for discharge with outpatient follow-up. He will continue with aspirin, atorvastatin, folic acid, and clopidogrel. Additionally, he reported chest pain on presentation. Cardiology was consulted and he was evaluated by Dr. Stanton. He felt that his chest pain was not cardiac in nature. He has cleared him for discharge with outpatient cardiac stress. On 06/27/2022, he was seen on morning rounds and deemed medically stable for discharge. He was discharged with instructions to schedule follow-up appointments with his PCP (Dr. Vinson), with Cardiology (Dr. Stanton), and with Neurology (Dr. Truong). He was given the opportunity to ask questions and reported no further questions. Furthermore, all questions were answered to the best of my ability. A copy of this discharge summary will be sent to the above providers to facilitate continuity of care. Today, I personally spent 25 minutes on his case, of which greater than 50% of the time was spent in patient education, counseling, and coordination of care as described above. - Physical Exam General: Alert, In no apparent distress, Oriented x3 HEENT: Atraumatic, PERRLA, Mucous membr. moist/pink, EOMI, Sclerae nonicteric Neck: JVD not distended Respiratory: Clear to auscultation bilaterally, Normal air movement Cardiovascular: No edema, Regular rate/rhythm, No murmurs Gastrointestinal: Normal bowel sounds, Soft, Non-distended, No tenderness Musculoskeletal: No clubbing Integumentary: No rashes Neurological: Normal speech, Normal strength at 5/5 x4 extr, Normal tone, Sensation intact, Cranial nerves 3-12 intact, Normal reflexes 2+, Normal affect NIH Stroke Scale 1a. Level of consciousness: 0 - Alert; keenly responsive 1b. LOC questions: 0 - Both questions right 1c. LOC commands: 0 - Performs both tasks 2. Best Gaze: 0 - Normal 3. Visual: 0 - No visual loss 4. Facial Palsy: 0 - Normal symmetry 5a. Motor left arm: 0 - No drift for 10 seconds 5b. Motor right arm: 0 - No drift for 10 seconds 6a. Motor left le - No drift for 5 seconds 6b. Motor right le - No drift for 5 seconds 7. Limb ataxia: 0 - No ataxia 8. Sensory: 0 - Normal; no sensory loss 9. Best Language: 0 - Normal; no aphasia 10. Dysarthria: 0 - Normal 11. Extinction and Inattention: 0 - No abnormality 12. Distal motor function: 0 - No abnormality Total Score: 0 Vital Signs/Physical Exam: Temp Pulse Resp BP Pulse Ox 98.8 F 73 17 135/84 96 06/27/22 04:00 06/27/22 04:00 06/27/22 04:00 06/27/22 04:00 06/27/22 04:00 Laboratory Data at Discharge: WBC 6.00 K/uL (4.3-10.9) 06/27/22 06:11 Hgb 15.1 g/dL (13.6-17.9) 06/27/22 06:11 Hct 45.5 % (39.6-49.0) 06/27/22 06:11 Plt Count 195 K/uL (152-406) 06/27/22 06:11 PT 11.0 SECONDS (9.5-12.5) 06/25/22 17:25 INR 1.00 06/25/22 17:25 APTT 33.5 SECONDS (24.3-36.9) 06/25/22 17:25 Sodium 137 mmol/L (136-145) 06/27/22 06:11 Potassium 3.9 mmol/L (3.5-5.1) 06/27/22 06:11 BUN 14 mg/dL (7-18) 06/27/22 06:11 Creatinine 0.88 mg/dL (0.70-1.30) 06/27/22 06:11 Glucose 106 mg/dL (74-106) 06/27/22 06:11 Magnesium 2.0 mg/dL (1.6-2.4) 06/25/22 17:25 Total Bilirubin 0.4 mg/dL (0.2-1.0) 06/25/22 17:25 AST 18 U/L (15-37) 06/25/22 17:25 ALT 27 U/L (16-61) 06/25/22 17:25 Alkaline Phosphatase 93 U/L (45-117) 06/25/22 17:25 Triglycerides 131 mg/dL (<150) 06/26/22 02:00 Cholesterol 166 mg/dL (<200) 06/26/22 02:00 HDL Cholesterol 47 mg/dL (40-60) 06/26/22 02:00 Cholesterol/HDL Ratio 3.53 06/26/22 02:00 Home Medications: ALPRAZolam [Xanax*] 2 mg PO BEDTIME 02/04/18 Aspirin [Aspirin EC 81 MG] 81 mg PO DAILY #90 tablet. 02/04/18 Atorvastatin Calcium [Lipitor] 40 mg PO DAILY #30 tablet 02/04/18 Clopidogrel Bisulfate [Plavix*] 75 mg PO DAILY #30 tablet 02/04/18 Duloxetine HCl [Cymbalta] 60 mg PO BEDTIME 02/04/18 Folic Acid 1 mg PO DAILY #90 tablet 02/04/18 Linaclotide [Linzess] 1 cap PO DAILY 02/04/18 Physician Discharge Instructions: 1. Please call and schedule a follow-up appointment with your PCP (Dr. Vinson) in 3-5 days 2. Please call and schedule a follow-up appointment with Cardiology (Dr. Stanton) in 5-7 days - He will schedule you for a cardiac stress test in his clinic 3. Please call and schedule a follow-up appointment with Neurology (Dr. Truong) in 5-7 days Followup: Ruddy Truong MD [ASSOCIATE-ACTIVE - CAN ADMIT] - Colt Vinson MD [Primary Care Provider] - Walter Stanton MD [ACTIVE - CAN ADMIT] -
[2022-06-27 08:48] VITALS: BP 146/90; TEMP 97.8
[2022-06-27] MEDS ORDERED: POTASSIUM CL SA 10 MEQ TAB PO ONE (09:00)
[2022-06-27] MEDS ORDERED: ENOXAPARIN 40 MG/0.4 ML SQ SCH (09:00)
[2022-06-27] MEDS ORDERED: ASPIRIN EC 81 MG TAB PO SCH (09:00)
== END 2022-06-27 10:53 | disposition home or self-care (01) | DRG 93 ==
LOC: ER 16:59 → ERHOLD 19:38 → OBSVTOIN 06-26 12:52 → 2ND 06-26 19:30
PROVIDERS: ADMIT Internal Medicine; ATTEND Internal Medicine
DX: R20.2 Paresthesia of skin (principal); R53.1 Weakness; R51.9 Headache, unspecified; R07.89 Other chest pain; R42 Dizziness and giddiness; I10 Essential (primary) hypertension; F12.90 Cannabis use, unspecified, uncomplicated; I65.23 Occlusion and stenosis of bilateral carotid arteries; E78.5 Hyperlipidemia, unspecified; F41.9 Anxiety disorder, unspecified; F17.220 Nicotine dependence, chewing tobacco, uncomplicated; Z86.73 Personal history of transient ischemic attack (TIA), and cerebral infarction without residual deficits; Z79.02 Long term (current) use of antithrombotics/antiplatelets; Z79.82 Long term (current) use of aspirin; Z79.899 Other long term (current) drug therapy; Z88.5 Allergy status to narcotic agent; Z20.822 Contact with and (suspected) exposure to COVID-19; Z82.49 Family history of ischemic heart disease and other diseases of the circulatory system; Z83.79 Family history of other diseases of the digestive system; Z82.0 Family history of epilepsy and other diseases of the nervous system
CPT/HCPCS: 36415; 70450; 70496; 70498; 70551; 71045; 80048; 80061; 80076; 80307; 81003; 83036; 83735; 84436; 84443; 84484; 85025; 85610; 85730; 87811; 92610; 92977; 93005; 93880; 97110; 97161; 97165; 99291; G0378; J1650; J3101; J7030; Q9967

== ENCOUNTER 2022-07-03 21:48 | Emergency (ER) | payer SELFPAY ==
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
[2022-07-03 22:40] VITALS: BP 156/99; TEMP 98.7; O2SAT 99
--- NOTE | 2022-07-19 15:35 | ER ---
Nurse's Notes [facility] Name: Niranjan Arteaga Age: 56 yrs Sex: Male : 1965 Arrival Date: 07/03/2022 Time: 22:03 Bed IW3 Private MD: Diagnosis: Essential (primary) hypertension Presentation: 07/03 22:08 Chief complaint: Patient states: he was here last week with his 3rd stroke and today he bb was taking his blood pressure and noticed it was getting higher and higher up to the 170s systolic states he always feels dizzy but every time he goes to the neurologist they tell him he is fine. Coronavirus screen: At this time, the client does not indicate any symptoms associated with coronavirus-19. Ebola Screen: No symptoms or risks identified at this time. Initial Sepsis Screen: Does the patient meet any 2 criteria? No. Patient's initial sepsis screen is negative. Does the patient have a suspected source of infection? No. Patient's initial sepsis screen is negative. Risk Assessment: Do you want to hurt yourself or someone else? Patient reports no desire to harm self or others. Note pt states last week he had similar symptoms prior to his stroke so he didn't want to wait too long. Onset of symptoms was July 03, 2022. 22:08 Method Of Arrival: Ambulatory bb 22:08 Acuity: ROSE 3 bb Triage Assessment: 22:16 General: Appears in no apparent distress. Behavior is calm, cooperative. Pain: Denies bb pain. Neuro: Level of Consciousness is awake, alert, obeys commands, Oriented to person, place, time, situation. Cardiovascular: Capillary refill < 3 seconds Patient's skin is warm and dry. Respiratory: Respiratory effort is even, unlabored, Respiratory pattern is regular. GI: No signs and/or symptoms were reported involving the gastrointestinal system. Derm: Skin is pink, warm \T\ dry. Musculoskeletal: Circulation, motion, and sensation intact. Historical: - Allergies: 22:12 Codeine; bb - PMHx: 22:12 Anxiety; CVA; Hypertension; TIA; bb - Immunization history:: Adult Immunizations up to date. - Social history:: Smoking status: unknown. Assessment: 22:18 Reassessment: Dr Layton in triage for pt evaluation. bb 22:30 Reassessment: Patient is alert, oriented x 3, equal unlabored respirations, skin bb warm/dry/pink. pt verbalized understanding of and agrees to plan of care discharge instructions given pt ambulated with steady gait to exit. Vital Signs: 22:08 BP 156 / 99; Pulse 89; Resp 16 S; Temp 98.7(O); Pulse Ox 99% on R/A; Weight 108.86 kg bb (R); Height 5 ft. 8 in. (R); Pain 0/10; 22:08 Body Mass Index 36.49 (108.86 kg, 172.72 cm) bb 22:08 Pain Scale: Adult bb ED Course: 22:03 Patient arrived in ED. ag3 22:11 Harris Layton MD is Attending Physician. bs3 22:12 Triage completed. bb 22:16 Arm band placed on. bb Administered Medications: No medications were administered Outcome: 22:27 Discharge ordered by . bs3 22:32 Discharged to home ambulatory. bb 22:32 Condition: stable 22:32 Discharge instructions given to patient, Instructed on discharge instructions, follow up and referral plans. Demonstrated understanding of instructions, follow-up care. 22:33 Patient left the ED. bb Signatures: Christine Roblero RN RN bb Arabella Morales ag3 Harris Layton MD MD bs3 Corrections: (The following items were deleted from the chart) 22:14 22:12 Home Meds: Enalapril Oral; bb bb 22:14 22:12 Home Meds: Xanax Oral; bb bb
--- NOTE | 2022-07-19 15:35 | EDPHYS ---
Physician Documentation [facility] Name: Niranjan Arteaga Age: 56 yrs Sex: Male : 1965 Arrival Date: 07/03/2022 Time: 22:03 Bed IW3 Private MD: ED Physician Harris Layton HPI: 07/03 22:22 This 56 yrs old Male presents to ER via Ambulatory with complaints of High bs3 Blood Pressure. 22:22 56-year-old male history of anxiety, CVA in the past, hypertension not on medication on bs3 clopidogrel and statin recently admitted for stroke however MRI negative received tenecteplase presents with elevated blood pressure he notes that it was elevated today he got concerned and therefore came in he denies any symptoms no weakness nausea vomiting chest pain shortness of breath or any other symptoms. Historical: - Allergies: 22:12 Codeine; bb - PMHx: 22:12 Anxiety; CVA; Hypertension; TIA; bb - Immunization history:: Adult Immunizations up to date. - Social history:: Smoking status: unknown. ROS: 22:22 Constitutional: Negative for fever, chills bs3 22:22 All other systems are negative. Exam: 22:22 Constitutional: This is a well developed, well nourished patient who is awake, alert, bs3 and in no acute distress. Head/Face: Normocephalic, atraumatic. Eyes: Pupils equal round and reactive to light, extra-ocular motions intact. Lids and lashes normal. ENT: mmm, no posterior phyarngeal erythema Neck: Trachea midline, no thyromegaly, no neck stiffness Chest/axilla: Normal chest wall appearance and motion. Nontender with no deformity. No lesions are appreciated. Cardiovascular: Regular rate and rhythm with a normal S1 and S2. symmetric pulses in upper extremities Respiratory: Lungs have equal breath sounds bilaterally, clear to auscultation, no respiratory distress Abdomen/GI: Soft, non-tender, no rebound or guarding MS/ Extremity: Pulses equal, no cyanosis. Neurovascular intact. Full, normal range of motion. Neuro: Awake and alert, GCS 15, oriented to person, place, time, and situation. Cranial nerves II-XII grossly intact. Motor strength 5/5 in all extremities. Sensory grossly intact. NIH of 0 Psych: Awake, alert, with orientation to person, place and time. Behavior, mood, and affect are within normal limits. Vital Signs: 22:08 BP 156 / 99; Pulse 89; Resp 16 S; Temp 98.7(O); Pulse Ox 99% on R/A; Weight 108.86 kg bb (R); Height 5 ft. 8 in. (R); Pain 0/10; 22:08 Body Mass Index 36.49 (108.86 kg, 172.72 cm) bb 22:08 Pain Scale: Adult bb MDM: 22:11 Patient medically screened. bs3 22:22 Differential diagnosis: hypertensive crisis, Malignant HTN, Asymptomatic hypertension. bs3 Data reviewed: vital signs, nurses notes. External Records Reviewed: Inpatient record: From recent admission reviewed MRI which was negative. ED course: Patient with asymptomatic hypertension we discussed a BP journal I advised patient to check his blood pressure daily as he is doing but not actually look at the reading and look at the reading only once a week unless symptomatic advise return precautions follow-up with primary care. Administered Medications: No medications were administered Disposition Summary: 07/03/22 22:27 Discharge Ordered Location: Home bs3 Problem: an acute exacerbation bs3 Symptoms: have improved bs3 Condition: Stable bs3 Diagnosis - Essential (primary) hypertension bs3 Followup: bs3 - With: Private Physician - When: 1 week - Reason: Re-evaluation by your physician Discharge Instructions: - Discharge Summary Sheet bs3 - Hypertension, Adult bs3 Forms: - Medication Reconciliation Form bs3 - Thank You Letter bs3 - Antibiotic Education bs3 - Prescription Opioid Use bs3 Signatures: Christine Roblero RN RN bb Stein, Brandon, MD MD bs3 Corrections: (The following items were deleted from the chart) 22:14 22:12 Home Meds: Enalapril Oral; pablito kenney 22:14 22:12 Home Meds: Xanax Oral; pablito kenney
== END 2022-07-03 22:33 | disposition home or self-care (01) ==
LOC: ER 21:48
DX: I10 Essential (primary) hypertension (principal)
CPT/HCPCS: 99281

== ENCOUNTER 2024-06-21 14:37 | Emergency (ER) | payer OTHER, SELFPAY ==
--- OUTSIDE RECORDS SUMMARY | 2024-06-21 14:44 | XMS REPORT | Continuity of Care Document ---
Author Name Unknown Address [address] [facility] [address] [place] [address] [facility] thconnect Address [address] [facility] [address] [place] [address] Care Team Providers Care Machine Tender Name Role Phone [place] LOAN INSPECTOR, Devendradelores Pina Primary Care Physician [phone] BC POLANCO Attending Clinician Unavailable UMESH GARY Attending Clinician Unavailable EM POPE Attending Clinician EM Chen Attending Clinician Scotty cervantes Doctor Unassigned, [place] Attending Clinician U ROSY Strickland Attending Clinician Unav Rosy Patiño MD Attending Clinician + Bc Polanco MD Attending Clinician Umesh Giron Attending Clinician [phone] BEV HERNANDEZ Attending Clinician UnavailEB Arthur Attending Clinician UnavailBev Damon MD Attending Clinician [phone] Rosemarie Hsu Attending Clinician U navailMarilyn Danielson Attending Clinician [phone], [employer] Attending Clinician Betsy vailable MARILYN WHITNEY Attending Clinician Unavailable MARILYN WHITNEY Attending Clinician Unavailable Herson Sears MD Attending Clinician [phone] Rosemarie Hsu Attending Clinician U misael Willoughby PhD, Tabatha Attending Clinician [phone] TABATHA WILLOUGHBY Attending Clinician Unavailable TABATHA WILLOUGHBY Attending Clinician Unavailable Abdirahman ATKINSON, Umesh Attending Clinician [phone] Rhonda Larson Attending Clinician Unavaila Herson Quan MD Attending Clinician [phone] CHRETIEN_F Attending Clinician Unavailable Doctor Unassigned, [place] Attending Clinician U CAROLIN Cortez Attending Clinician Unavailable BLU CASILLAS Attending Clinician UnavailBLU Villarreal Attending Clinician UnavailBlu Villarreal MD Attending Clinician [phone] Alfredo RN, Mya Llamas Attending Clinician Unavailable Carolin Casas MD Attending Clinician [phone], [facility] Attending Clinician Unavailable HERSON SEARS Attending Clinician Unavail able HERSON SEARS Attending Clinician Unavail able Radiology Attending Clinician Unavailable RADIOLOGY Attending Clinician Unavailable Tommy Attending Clinician Unavailable CHRETIEN_F Admitting Clinician Unavailable BLU CASILLAS Admitting Clinician UnavailBlu Villarreal MD Admitting Clinician [phone] HERSON SEARS Admitting Clinician Unavail able KIM ENCARNACION Admitting Clinician Unavailab tika Sanders Admitting Clinician Unavailable Payers Payer Name Policy Type Policy Number Effective Date Expirati on Date Source [employer] DUAL ACCESS OPEN PPO [id number] 2024 00:00:00 [employer] MEDICARE DUAL DSNP Medicare [id number] 2024 00:00:00 MEDICAID [place] Medicaid [id number] 2024 00:00:00 INDIGENT PROGRAM [id number] Problems Condition Name Condition Details Condition Category Status Onset Date Resolution Date Last Treatment Date Treating Clinician Comments Source HECTOR (obstructi ve sleep apnea) HECTOR (obstructi ve sleep apnea) Disease Active 05-26 00:00: 00 [facility] Obesity (BMI 30-39.9) Obesity (BMI 30-39.9) Disease Active - 00:00: 00 [facility] Vertigo Vertigo Disease Active 05-26 00:00: 00 [facility] History of arterial ischemic stroke History of arterial ischemic stroke Disease Active 05-26 00:00: 00 [facility] Noncomplia nce with medication regimen Noncomplia nce with Medication Regimen Problem Active 2023-04 2 00:00: 00 [facility] Pain of right knee joint Pain of Right Knee Joint Problem Active 2023-04 2 00:00: 00 [facility] Pain of right shoulder joint Pain of Right Shoulder Joint Problem Active 2023-04 2 00:00: 00 [facility] Memory impairment Memory Impairment Problem Active 09-28 00:00: 00 [facility] Primary osteoarthr itis of left knee Primary osteoarthr itis of left knee Disease Active 2 00:00: 00 [facility] Pre-op testing Pre-op testing Disease Active 2 00:00: 00 [facility] Obstructiv e sleep apnea Obstructiv e sleep apnea Disease Active 05-23 00:00: 00 [facility] Primary hypertensi on Primary hypertensi on Disease Active 05-23 00:00: 00 [facility] Mixed hyperlipid emia Mixed hyperlipid emia Disease Active 05-23 00:00: 00 [facility] History of transient ischemic attack History of Transient Ischemic Attack Problem Active 05-09 00:00: 00 [facility] Insomnia Insomnia Problem Active 2022-04 2 00:00: 00 [facility] Pain of left knee joint Pain of Left Knee Joint Problem Active 2022-04 2 00:00: 00 [facility] Chronic kidney disease stage 2 Chronic Kidney Disease Stage 2 Problem Active 2022-04 00:00: 00 [facility] Cerebrovas cular accident Cerebrovas cular Accident Problem Active 2022-04 00:00: 00 [facility] Vertigo Vertigo Problem Active 2022-04 00:00: 00 [facility] Fatigue Fatigue Problem Active 2022[facility]04 [facility] Prediabete s Prediabete s Problem Active 2022-04 00:00: 00 [facility] Hyperchole sterolemia Hyperchole sterolemia Problem Active 2022-04 00:00: 00 [facility] Anxiety Anxiety Problem Active 2022-04 00:00: [facility] Hypertensi ve disorder Hypertensi ve Disorder Problem Active 2022-04 00:00: 00 [facility] Allergies, Adverse Reactions, Alerts Allergy Name Allergy Type Status Severity Reaction(s) Onset Date Inactive Date Treating Clinician Comments Source Codeine Allergy to substanc e Active 05-24 00:00: 00 Skip Pathak STATINS- HMG-COA REDUCTAS E INHIBITO RS Drug Class Active Med Other-Cmnt 06-04 00:00: 00 [facility] Statins- Hmg-Coa Reductas e Inhibito rs Propensi ty to adverse reaction s Active Other - See comments 06-04 00:00: 00 Joint pain [facility] Codeine Propensi ty to adverse reaction s Active Other - See comments 2017-04 00:00: 00 Insomnia [facility] CODEINE DRUG INGREDI Active Other-Cmnt 2017-04 00:00: 00 [facility] STATINS- HMG-COA REDUCTAS E INHIBITO RS Allergy to substanc e Active Myalgias (muscle pain) [facility] Social History Social Habit Start Date Stop Date Quantity Comments Source Gender identity 2023-07-19 04:25:47 Identifies as male gender (finding) [facility] Korey Pathak Sexual orientation [facility] History of tobacco use Cigarette Smoker [facility] Tobacco use and exposure 2024-06-01 00:00:00 2024-06-01 00:00:00 Smokeless tobacco non-user [facility] Alcoholic beverage intake 2024-06-01 00:00:00 2024-06-01 00:00:00 Lifetime non-drinker (finding) [facility] History of Social function 2024-06-01 00:00:00 2024-06-01 00:00:00 [facility] Alcohol intake 2023-06-23 00:00:00 2023-06-23 00:00:00 Current drinker of alcohol (finding) [facility] Alcohol Comment 2018-02-24 00:00:00 2018-02-24 00:00:00 [facility] Sex assigned at 1965 00:00:00 1965 00:00:00 [facility] Smoking Status Start Date Stop Date Source Current Some Day Smoker [facility] oup Ex-smoker 2024-06-01 00:00:00 2024-06-01 00:00:00 [facility] Medications Ordered Medication Name Filled Medication Name Start Date Stop Date Current Medication? Ordering Clinician Indication Dosage Frequency Signature (SIG) Comments Components Source ezetimibe (Zetia) 10 MG tablet ezetimibe (Zetia) 10 MG tablet 05-26 00:00: 00 Yes 1{tbl} Take 1 tablet by mouth every morning. Skip llamas [facility] ezetimibe 10 mg tablet 05-26 00:00: 00 Yes 10mg Take 1 tablet by mouth in the morning. [facility] cetirizine 5 mg tablet 05-21 00:00: 00 Yes [id number] 5mg Take 1 tablet by mouth at bedtime. [facility] predniSONE 10 mg tablet 05-21 00:00: 00 Yes [id number] Prednisone 30mg for 3 days then 20mg for 3 days then 10mg for 3 days then STOP [facility] citalopram (CeleXA) 20 MG tablet citalopram (CeleXA) 20 MG tablet 2023-04 00:00: 00 Yes Skip Nair Zo citalopram 40 mg tablet 2023-04 10:13: 48 Yes 40mg Take 1 tablet by mouth in the morning. [facility] enalapril 20 mg tablet 2023-04 10:13: 48 Yes 20mg Take 1 tablet by mouth in the morning and 1 tablet in the evening. [facility] meclizine 25 mg tablet 2023-04 00:00: 00 Yes [id number] 25mg Take 1 tablet by mouth 3 (three) times daily as needed for Dizziness. [facility] predniSONE 10 mg tablet 2023-04 0-15 00:00: 00 05-21 00:00 :00 No [id number] 10mg Take 1 tablet by mouth in the morning. Take 3 tabs for 3 days, take 2 tabs for 3 days, take 1 tab for 3 days then STOP. [facility] lactated ringers IV infusion 1,000 mL 06-09 20:45: 00 Yes 1000mL at 75 mL/hr, 1,000 mL, IV Infusion, CONTINUOUS , Starting on Fri06/09/23 at 1445, Until Discontinu ed, Routine, PACU [facility] HYDROmorphO ne (DILAUDID) injection 0.2 mg 06-09 20:30: 34 Yes .2mg 0.2 mg, Slow IV Push, Q5MIN PRN, 10 doses, Starting on Fri06/09/23 at 1430, Until Discontinu ed, Routine, Pain (scale 7-10), PACU
Us e approved by (Faculty): PACU USE -ANESTHESI A SERVICE-HY DROMORPHON E INJECTIONS [facility] ondansetron (ZOFRAN (PF)) injection 4 mg 06-09 20:30: 34 Yes 4mg 4 mg, Slow IV Push, PRN, 1 dose, Starting on Fri06/09/23 at 1430, Until Discontinu ed, Routine, Nausea and Vomiting (N/V), PACU [facility] meperidine (DEMEROL) injection 12.5 mg 06-09 20:30: 34 Yes 12.5mg 12.5 mg, Slow IV Push, PRN, 1 dose, Starting on Fri06/09/23 at 1430, Until Discontinu ed, Routine, Shivering, PACU
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 Restricted medication : PACU RECOVERY [facility] FENTanyl PF (SUBLIMAZE (PF)) injection 25 mcg 06-09 20:30: 34 Yes 25ug 25 mcg, Slow IV Push, Q5MIN PRN, 4 doses, Starting on Fri06/09/23 at 1430, Until Discontinu ed, Routine, Pain (scale 4-6), PACU [facility] lidocaine-e pinephrine (XYLOCAINE WITH EPINEPHRINE ) 1 %-1:100,000 injection 06-09 20:10: 00 06-09 20:29 :20 No PRN, Starting on Fri06/09/23 at 1410, Until Fri06/09/23 at 1429, Routine, Intra-op [facility] lactated Ringers irrigation solution 06-09 19:56: 00 06-09 20:29 :20 No PRN, Starting on Fri06/09/23 at 1356, Until Fri06/09/23 at 1429, Routine, Intra-op [facility] EPINEPHrine 1:1,000 (1 mg/mL) (ADRENALIN) 1 mL in lactated ringers 3,000 mL OR irrigation 06-09 19:53: 00 06-09 20:29 :20 No PRN, Starting on Fri06/09/23 at 1353, Intra-op [facility] aspirin 325 mg tablet 06-09 00:00: 00 07-07 04:59 :00 No [id number] 325mg Take 1 tablet by mouth in the morning and 1 tablet in the evening. Take with meals. Do all this for 28 days. [facility] traMADoL 50 mg tablet 06-09 00:00: 00 06-17 05:59 :00 No [id number] 50mg Take 1 tablet by mouth every 6 (six) hours as needed for Pain (scale 4-6) or Pain (scale 7-10) for up to 7 days. Indication s: acute pain [facility] sulfur hexafluorid e microsphr (LUMASON) injection 5 mL 06-02 21:45: 00 06-02 21:45 :00 No [id number] 5mL 5 mL, Intravenou s, ONCE, 1 dose, On Fri06/02/23 at 1600, Routine
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 [facility] amLODIPine 10 mg tablet 05-23 00:00: 00 05-26 00:00 :00 No [id number] 10mg Take 1 tablet by mouth at bedtime. [facility] losartan-hy drochloroth iazide 100-25 mg per tablet 05-23 00:00: 00 05-23 05:59 :00 No [id number] 1{tbl} Take 1 tablet by mouth in the morning. [facility] aspirin 81 mg EC tablet 05-23 00:00: 00 05-23 05:59 :00 No [id number] 81mg Take 1 tablet by mouth in the morning. [facility] busPIRone 10 mg tablet 05-11 00:00: 00 05-26 00:00 :00 No 10mg Take 1 tablet by mouth in the morning and 1 tablet in the evening. [facility] losartan-hy drochloroth iazide 50-12.5 mg per tablet 05-11 00:00: 00 05-23 00:00 :00 No 1{tbl} Take 1 tablet by mouth in the morning. [facility] BABY ASPIRIN ORAL 2022-04 13:52: 57 04-18 00:00 :00 No 1{tbl} Take 1 tablet by mouth daily. [facility] ezetimibe 10 mg tablet 2022-04 2- 00:00: 00 05-26 00:00 :00 No 10mg Take 1 tablet by mouth in the morning. [facility] traMADoL 50 mg tablet 2022-04 2- 00:00: 00 06-09 00:00 :00 No 50mg Take 1 tablet by mouth every 6 (six) hours as needed. [facility] traZODone 50 mg tablet 2022-04 2- 00:00: 00 05-26 00:00 :00 No 50mg Take 1 tablet by mouth as needed. [facility] duloxetine 60 mg capsule,del ayed release TAKE 1 CAPSULE BY MOUTH TWICE DAILY duloxetine 60 mg capsule,del ayed release TAKE 1 CAPSULE BY MOUTH TWICE DAILY 10-24 00:00: 00 No duloxetine 60 mg capsule,de layed release TAKE 1 CAPSULE BY MOUTH TWICE DAILY [facility] montelukast 10 mg tablet TAKE 1 TABLET BY MOUTH EVERY MORNING montelukast 10 mg tablet TAKE 1 TABLET BY MOUTH EVERY MORNING 10-24 00:00: 00 No montelukas t 10 mg tablet TAKE 1 TABLET BY MOUTH EVERY MORNING [facility] rosuvastati n 20 mg tablet TAKE 1 TABLET BY MOUTH EVERY EVENING rosuvastati n 20 mg tablet TAKE 1 TABLET BY MOUTH EVERY EVENING 10-24 00:00: 00 No rosuvastat in 20 mg tablet TAKE 1 TABLET BY MOUTH EVERY EVENING [facility] ASPIRIN 81 PO ASPIRIN 81 PO 08-14 00:00: 00 Yes 20mg See Instructio ns, 1 po qd, 0 Refill(s) Skip Pathak MONTELUKAST SODIUM PO MONTELUKAST SODIUM PO 08-14 00:00: 00 Yes 10mg 10 mg, PO, Daily, 0 Refill(s) Skip Pathak DULOXETINE HCL PO DULOXETINE HCL PO 08-14 00:00: 00 Yes 60mg 60 mg, PO, BID, 0 Refill(s) Skip Pathak BABY ASPIRIN ORAL 2018-1 030 15:38: 46 Yes 1{tbl} Take 1 tablet by mouth daily. [facility] citalopram 40 mg tablet 2017-04 023 00:00: 00 04-18 00:00 :00 No [facility] ALPRAZolam 2 mg tablet 2017-04 0-19 00:00: 00 04-18 00:00 :00 No [facility] atorvastati n 40 mg tablet 2017-04 0-11 00:00: 00 04-18 00:00 :00 No [facility] foLIC acid 1 mg tablet 2017-04 0 00:00: 00 Yes [facility] clopidogrel 75 mg tablet 2017-04 0 00:00: 00 04-18 00:00 :00 No [facility] DULoxetine 60 mg capsule 2017-04 004 00:00: 00 04-18 00:00 :00 No [facility] metoclopram priya HCl 10 mg tablet 01-23 00:00: 00 05-26 00:00 :00 No [facility] SUPREP BOWEL PREP KIT 17.5-3.13-1 .6 gram SolR 01-23 00:00: 00 05-23 00:00 :00 No [facility] enalapril 5 mg tablet 01-22 00:00: 00 04-18 00:00 :00 No [facility] aspirin 81 mg chewable tablet Chew 1 tablet every day by oral route. aspirin 81 mg chewable tablet Chew 1 tablet every day by oral route. No 1 Q1D aspirin 81 mg chewable tablet Chew 1 tablet every day by oral route. Enrique Whitaker [facility] enalapril maleate 20 mg tablet Take 2 tablets every day by oral route in the morning for 90 days, for Blood pressure. enalapril maleate 20 mg tablet Take 2 tablets every day by oral route in the morning for 90 days, for Blood pressure. No 2 Q1D enalapril maleate 20 mg tablet Take 2 tablets every day by oral route in the morning for 90 days, for Blood pressure. [facility] fluticasone propionate 50 mcg/actuati on nasal spray,suspe nsion fluticasone propionate 50 mcg/actuati on nasal spray,suspe nsion No fluticason e propionate 50 mcg/actuat ion nasal spray,susp ension [facility] hydroxyzine HCl 25 mg tablet hydroxyzine HCl 25 mg tablet No hydroxyzin e HCl 25 mg tablet [facility] Medrol ([place]) 4 mg tablets in a dose pack Take 1 dose pk by oral route. Medrol ([place]) 4 mg tablets in a dose pack Take 1 dose pk by oral route. No 1dose pk(s) Medrol ([place]) 4 mg tablets in a dose pack Take 1 dose pk by oral route. [facility] triamcinolo ne acetonide 0.1 % topical cream APPLY A THIN LAYER TO THE AFFECTED AREA(S) BY TOPICAL ROUTE 2 TIMES PER DAY triamcinolo ne acetonide 0.1 % topical cream APPLY A THIN LAYER TO THE AFFECTED AREA(S) BY TOPICAL ROUTE 2 TIMES PER DAY No triamcinol one acetonide 0.1 % topical cream APPLY A THIN LAYER TO THE AFFECTED AREA(S) BY TOPICAL ROUTE 2 TIMES PER DAY [facility] lisinopril 20 mg tablet TAKE ONE TABLET BY MOUTH EVERY DAY lisinopril 20 mg tablet TAKE ONE TABLET BY MOUTH EVERY DAY No lisinopril 20 mg tablet TAKE ONE TABLET BY MOUTH EVERY DAY [facility] meclizine 25 mg chewable tablet Chew 1 tablet 3 times a day by oral route. meclizine 25 mg chewable tablet Chew 1 tablet 3 times a day by oral route. No 1 TID meclizine 25 mg chewable tablet Chew 1 tablet 3 times a day by oral route. [facility] Vital Signs Vital Name Observation Time Observation Value Comments S ource BMI (Body Mass Index) 2024-06-14 00:00:00 36.2 kg/m2 [facility] BP Diastolic 2024-06-14 00:00:00 80 mm[Hg] [facility] Body Weight 2024-06-14 00:00:00 3808 [oz_av] [facility] BP Systolic 2024-06-14 00:00:00 126 mm[Hg] [facility] Height 2024-06-14 00:00:00 68 [in_i] [facility] BP Systolic 2024-06-10 00:00:00 124 mm[Hg] [facility] Body Weight 2024-06-10 00:00:00 3712 [oz_av] [facility] BP Diastolic 2024-06-10 00:00:00 78 mm[Hg] [facility] BMI (Body Mass Index) 2024-06-10 00:00:00 35.3 kg/m2 [facility] Height 2024-06-10 00:00:00 68 [in_i] [facility] Systolic blood pressure 2024-06-01 11:00:00 134 mm[Hg] [facility] Diastolic blood pressure 2024-06-01 11:00:00 82 mm[Hg] [facility] Heart rate 2024-06-01 11:00:00 76 /min [facility] Body height 2024-06-01 11:00:00 172.7 cm [facility] Body weight 2024-06-01 11:00:00 112.946 kg [facility] BMI 2024-06-01 11:00:00 37.86 kg/m2 [facility] Systolic blood pressure 2024-06-01 11:00:00 134 mm[Hg] [facility] Diastolic blood pressure 2024-06-01 11:00:00 82 mm[Hg] [facility] Epic Heart rate 2024-06-01 11:00:00 76 /min [facility] Body height 2024-06-01 11:00:00 172.7 cm [facility] Body weight 2024-06-01 11:00:00 112.946 kg [facility] BMI 2024-06-01 11:00:00 37.86 kg/m2 [facility] Systolic blood pressure 2024-05-26 15:09:00 135 [facility]Hg[facility] 2024-05-26 15:09:00 84 mm[facility]Hg[facility] Heart rate 2024-05-26 15:09:00 81 /min [facility] Respiratory rate 2024-05-26 15:09:00 16 /min [facility] Body height 2024-05-26 15:09:00 172.7 cm [facility] Body weight 2024-05-26 15:09:00 112.764 kg [facility] BMI 2024-05-26 15:09:00 37.80 kg/m2 [facility] Oxygen saturation in Arterial blood by Pulse oximetry 2024-05-26 15:09:00 97 /min [facility] Respiratory rate 2024-05-21 16:00:00 16 /min [facility] Body height 2024-05-21 16:00:00 172.7 cm [facility] Body weight 2024-05-21 16:00:00 112.447 kg [facility] BMI 2024-05-21 16:00:00 37.69 kg/m2 [facility] Oxygen saturation in Arterial blood by Pulse oximetry 2024-05-21 16:00:00 98 /min [facility] Systolic blood pressure 2024-05-21 16:00:00 138 mm[Hg] [facility] Diastolic blood pressure 2024-05-21 16:00:00 97 mm[Hg] [facility] Heart rate 2024-05-21 16:00:00 94 /min [facility] Body temperature 2024-05-21 16:00:00 36.17 Kristie [facility] Body Weight 2024-05-05 00:00:00 3941 [oz_av] [facility] BP Diastolic 2024-05-05 00:00:00 88 mm[Hg] [facility] BP Systolic 2024-05-05 00:00:00 138 mm[Hg] [facility] BMI (Body Mass Index) 2024-05-05 00:00:00 37.5 kg/m2 [facility] Height 2024-05-05 00:00:00 68 [in_i] [facility] BP Diastolic 2024-03-30 00:00:00 84 mm[Hg] [facility] Height 2024-03-30 00:00:00 68 [in_i] [facility] Body Weight 2024-03-30 00:00:00 4032 [oz_av] [facility] BP Systolic 2024-03-30 00:00:00 138 mm[Hg] [facility] BMI (Body Mass Index) 2024-03-30 00:00:00 38.3 kg/m2 [facility] Body temperature 2024-03-22 16:09:00 36 Kristie [facility] Body height 2024-03-22 16:09:00 172.7 cm [facility] Body weight 2024-03-22 16:09:00 112.265 kg [facility] BMI 2024-03-22 16:09:00 37.63 kg/m2 [facility] BP Diastolic 2024-01-01 00:00:00 92 mm[Hg] [facility] Height 2024-01-01 00:00:00 68 [in_i] [facility] BMI (Body Mass Index) 2024-01-01 00:00:00 36.9 kg/m2 [facility] BP Systolic 2024-01-01 00:00:00 124 mm[Hg] [facility] Body Weight 2024-01-01 00:00:00 3888 [oz_av] [facility] Systolic blood pressure 2023-11-14 15:44:00 132 mm[Hg] [facility] Diastolic blood pressure 2023-11-14 15:44:00 85 mm[Hg] [facility] Heart rate 2023-11-14 15:44:00 74 /min [facility] Body temperature 2023-11-14 15:41:00 36.5 Kristie [facility] Respiratory rate 2023-11-14 15:41:00 18 /min [facility] Body height 2023-11-14 15:41:00 172.7 cm [facility] Body weight 2023-11-14 15:41:00 114.397 kg [facility] BMI 2023-11-14 15:41:00 38.35 kg/m2 [facility] Oxygen saturation in Arterial blood by Pulse oximetry 2023-11-14 15:41:00 95 /min [facility] Body Weight 2023-10-29 00:00:00 4048 [oz_av] [facility] BP Diastolic 2023-10-29 00:00:00 90 mm[Hg] [facility] BP Systolic 2023-10-29 00:00:00 138 mm[Hg] [facility] Height 2023-10-29 00:00:00 68 [in_i] [facility] BMI (Body Mass Index) 2023-10-29 00:00:00 38.5 kg/m2 [facility] BP Diastolic 2023-10-21 00:00:00 84 mm[Hg] [facility] BMI (Body Mass Index) 2023-10-21 00:00:00 38.9 kg/m2 [facility] Body Weight 2023-10-21 00:00:00 4096 [oz_av] [facility] Height 2023-10-21 00:00:00 68 [in_i] [facility] BP Systolic 2023-10-21 00:00:00 124 mm[Hg] [facility] Systolic blood pressure 2023-10-03 20:24:00 134 mm[Hg] [facility] Diastolic blood pressure 2023-10-03 20:24:00 91 mm[facility] 2023-10-03 20:24:00 91 /min [facility] Body temperature 2023-10-03 20:19:00 36.67 Kristie [facility] Respiratory rate 2023-10-03 20:19:00 18 /min [facility] Body height 2023-10-03 20:19:00 172.7 cm [facility] Body weight 2023-10-03 20:19:00 114.306 kg [facility] BMI 2023-10-03 20:19:00 38.32 kg/m2 [facility] Oxygen saturation in Arterial blood by Pulse oximetry 2023-10-03 20:19:00 97 /min [facility] Body Weight 2023-09-29 00:00:00 3984 [oz_av] [facility] BMI (Body Mass Index) 2023-09-29 00:00:00 37.9 kg/m2 [facility] BP Systolic 2023-09-29 00:00:00 134 mm[Hg] [facility] BP Diastolic 2023-09-29 00:00:00 84 mm[Hg] [facility] Height 2023-09-29 00:00:00 68 [in_i] [facility] BP Systolic 2023-08-27 00:00:00 140 mm[Hg] [facility] Height 2023-08-27 00:00:00 68 [in_i] [facility] BMI (Body Mass Index) 2023-08-27 00:00:00 38.8 kg/m2 [facility] Body Weight 2023-08-27 00:00:00 4080 [oz_av] [facility] BP Diastolic 2023-08-27 00:00:00 80 mm[Hg] [facility] BP Diastolic 2023-08-07 00:00:00 88 mm[Hg] [facility] Height 2023-08-07 00:00:00 68 [in_i] [facility] BMI (Body Mass Index) 2023-08-07 00:00:00 38.3 kg/m2 [facility] BP Systolic 2023-08-07 00:00:00 138 mm[Hg] [facility] Body Weight 2023-08-07 00:00:00 4032 [oz_av] [facility] BP Systolic 2023-07-21 00:00:00 136 mm[Hg] [facility] Height 2023-07-21 00:00:00 68 [in_i] [facility] BMI (Body Mass Index) 2023-07-21 00:00:00 38.9 kg/m2 [place] [facility] Body Weight 2023-07-21 00:00:00 4096 [oz_av] [facility] BP Diastolic 2023-07-21 00:00:00 84 mm[Hg] [facility] Body height 2023-06-23 21:28:00 172.7 cm [facility] Body weight 2023-06-23 21:28:00 116.03 kg [facility] BMI 2023-06-23 21:28:00 38.89 kg/m2 [facility] Systolic blood pressure 2023-06-09 21:25:00 131 mm[Hg] [facility] Di[facility] blood pressure 2023-06-09 21:25:00 83 mm[Hg] [facility] Heart rate 2023-06-09 21:25:00 75 /min [facility] Oxygen saturation in Arterial blood by Pulse oximetry 2023-06-09 21:25:00 93 /min [facility] Respiratory rate 2023-06-09 21:20:00 17 /min [facility] Body temperature 2023-06-09 20:25:00 36.33 Kristie [facility] Systolic blood pressure 2023-06-09 21:25:00 131 mm[Hg] [facility] Di[facility] blood pressure 2023-06-09 21:25:00 83 mm[Hg] [facility] Heart rate 2023-06-09 21:25:00 75 /min [facility] Oxygen saturation in Arterial blood by Pulse oximetry 2023-06-09 21:25:00 93 /min [facility] Respiratory rate 2023-06-09 21:20:00 17 /min [facility] Body temperature 2023-06-09 20:25:00 36.33 Kristie [facility] Systolic blood pressure 2023-06-02 19:38:00 115 mm[Hg] [facility] Di[facility] blood pressure 2023-06-02 19:38:00 80 mm[Hg] [facility] Heart rate 2023-06-02 19:38:00 96 /min [facility] Body height 2023-06-02 19:38:00 172.7 cm [facility] Body weight 2023-06-02 19:38:00 115.667 kg [facility] BMI 2023-06-02 19:38:00 38.77 kg/m2 [facility] Oxygen saturation in Arterial blood by Pulse oximetry 2023-06-02 19:38:00 95 /min [facility] Body height 2023-05-28 20:25:00 172.7 cm [facility] Body weight 2023-05-28 20:25:00 114.306 kg [facility] BMI 2023-05-28 20:25:00 38.32 kg/m2 [facility] Systolic blood pressure 2023-05-23 16:27:00 128 mm[Hg] [facility] Di[facility] blood pressure 2023-05-23 16:27:00 96 mm[Hg] [facility] Heart rate 2023-05-23 16:27:00 90 /min [facility] Oxygen saturation in Arterial blood by Pulse oximetry 2023-05-23 16:27:00 96 /min [facility] Body temperature 2023-05-23 16:17:00 36.33 Kristie [facility] Respiratory rate 2023-05-23 16:17:00 18 /min [facility] Body height 2023-05-23 16:17:00 172.7 cm [facility] Body weight 2023-05-23 16:17:00 114.306 kg [facility] BMI 2023-05-23 16:17:00 38.32 kg/m2 [facility] BMI (Body Mass Index) 2023-05-09 00:00:00 38.2 kg/m2 [facility] Height 2023-05-09 00:00:00 68 [in_i] [facility] BP Systolic 2023-05-09 00:00:00 132 mm[Hg] [facility] Body Weight 2023-05-09 00:00:00 4016 [oz_av] [facility] BP Diastolic 2023-05-09 00:00:00 98 mm[Hg] [facility] Systolic blood pressure 2023-04-18 19:14:00 142 mm[Hg] [facility] Di[facility] blood pressure 2023-04-18 19:14:00 95 mm[Hg] [facility] Heart [facility] 2023-04-18 18:44:00 85 /min [facility] Body height 2023-04-18 18:44:00 175.3 cm [facility] Body weight 2023-04-18 18:44:00 112.038 kg [facility] BMI 2023-04-18 18:44:00 36.48 kg/m2 [facility] Oxygen saturation in Arterial blood by Pulse oximetry 2023-04-18 18:44:00 96 /min [facility] Height 2023-03-31 00:00:00 68 [in_i] [facility] Body Weight 2023-03-31 00:00:00 4019.2 [oz_av] [facility] BP Systolic 2023-03-31 00:00:00 135 mm[Hg] [facility] BMI (Body Mass Index) 2023-03-31 00:00:00 38.2 kg/m2 [facility] BP Diastolic 2023-03-31 00:00:00 92 mm[Hg] [facility] Height 2023-03-04 00:00:00 68 [in_i] [facility] BMI (Body Mass Index) 2023-03-04 00:00:00 36.7 kg/m2 [facility] BP Diastolic 2023-03-04 00:00:00 91 mm[Hg] [facility] Body Weight 2023-03-04 00:00:00 3865.6 [oz_av] [facility] BP Systolic 2023-03-04 00:00:00 130 mm[Hg] [facility] BP Diastolic 2023-02-26 00:00:00 100 mm[Hg] [facility] BMI (Body Mass Index) 2023-02-26 00:00:00 37.2 kg/m2 [facility] Body Weight 2023-02-26 00:00:00 3910.4 [oz_av] [facility] Height 2023-02-26 00:00:00 68 [in_i] [facility] BP Systolic 2023-02-26 00:00:00 152 mm[Hg] [facility] BP Diastolic 2021-12-04 00:00:00 87 mm[Hg] [facility] Height 2021-12-04 00:00:00 68 [in_i] [facility] BMI (Body Mass Index) 2021-12-04 00:00:00 36.6 kg/m2 [facility] BP Systolic 2021-12-04 00:00:00 126 mm[Hg] [facility] Body Weight 2021-12-04 00:00:00 240.9 [lb_av] [facility] BP Diastolic 2021-10-24 00:00:00 85 mm[Hg] [facility] Height 2021-10-24 00:00:00 68 [in_i] [facility] BMI (Body Mass Index) 2021-10-24 00:00:00 36.6 kg/m2 [facility] BP Systolic 2021-10-24 00:00:00 137 mm[Hg] [facility] Body Weight 2021-10-24 00:00:00 241 [lb_av] [facility] Procedures Procedure Date / Time Performed Performing Clinician Source EEG 2024-06-02 00:00:00 [facility] Epic EMG 2024-06-02 00:00:00 [facility] XR, shoulder, 2 or more view 2024-03-30 00:00:00 [facility] XR, knee, 3 view 2024-03-30 00:00:00 [facility] LDCT, chest, for lung cancer screening 2023-10-29 00:00:00 [facility] REFERRAL- REQUEST/RESPONSE 2023-10-24 19:32:18 Doctor Unassigned, [place] [facility] REFERRAL- REQUEST/RESPONSE 2023-10-24 19:32:10 Doctor Unassigned, [place] [facility] REFERRAL- REQUEST/RESPONSE 2023-10-20 20:44:44 Doctor Unassigned, [place] [facility] REFERRAL- REQUEST/RESPONSE 2023-09-24 14:20:44 Doctor Unassigned, [place] [facility] REFERRAL- REQUEST/RESPONSE 2023-09-24 14:19:38 Doctor Unassigned, [place] [facility] REFERRAL- REQUEST/RESPONSE 2023-09-24 14:19:28 Doctor Unassigned, [place] [facility] REFERRAL- REQUEST/RESPONSE 2023-08-18 19:37:41 Doctor Unassigned, [place] [facility] REFERRAL- REQUEST/RESPONSE 2023-08-18 18:54:20 Doctor Unassigned, [place] [facility] CT, shoulder, w/ contrast 2023-08-07 00:00:00 [facility] REFERRAL- REQUEST/RESPONSE 2023-07-31 12:53:10 Doctor Unassigned, [place] [facility] REFERRAL- REQUEST/RESPONSE 2023-07-31 12:46:35 Doctor Unassigned, [place] [facility] US, shoulder 2023-07-21 00:00:00 [facility] REFERRAL- REQUEST/RESPONSE 2023-07-10 05:01:00 Doctor Unassigned, [place] [facility] REFERRAL- REQUEST/RESPONSE 2023-06-23 06:01:00 Doctor Unassigned, [place] [facility] REFERRAL- REQUEST/RESPONSE 2023-06-11 06:01:00 Doctor Unassigned, [place] [facility] MENISCECTOMY 2023-06-09 18:58:00 Blu Casillas [facility] MENISCECTOMY 2023-06-09 18:58:00 Blu Casillas [facility] MENISCECTOMY 2023-06-09 18:58:00 Blu Casillas Uni [facility] DAY SURGERY - ADC 2023-06-09 06:01:00 Doctor Betsy ssigned, [place] [facility] INSURANCE CORRESPONDENCE 2023-06-04 06:01:00 Doc tor Unassigned, [place] [facility] EXTERNAL PROVIDER RECORDS 2023-06-03 06:01:00 Do ctor Unassigned, [place] [facility] THYROID STIMULATING HORMONE 2023-06-02 22:11:00 Herson Sears [facility] COMP. METABOLIC PANEL (51309) 2023-06-02 22:11:00 [facility] LIPID PANEL (99337)(TOTAL CHOLESTEROL, TRIGLYCERIDES, HDL) 2023-06-02 22:11:00 [facility] CBC WITH DIFF 2023-06-02 22:11:00 [facility] 2023-06-02 22:11:00 Blu Casillas [facility] TRANSTHORACIC ECHO (TTE) COMPLETE W/ CONTRAST 2023-06-02 21:58:46 [facility] EXTERNAL PROVIDER RECORDS 2023-06-02 06:01:00 Do ctor Unassigned, [place] [facility] EXTERNAL PROVIDER RECORDS 2023-06-02 06:01:00 Do ctor Unassigned, [place] [facility] HB ECG ROUTINE & RHYTHM STRIP 2023-05-23 16:24:00 [facility] DISCLOSURE AND CONSENT, MEDICAL AND SURGICAL PROCEDURES 2023-05-23 06:01:00 Doctor Unassigned, [place] [facility] MR BRAIN WO CONTRAST WITH NEUROQUANT 2023-05-08 17:50:00 Herson Sears [facility] MR KNEE LEFT WO CONTRAST 2023-04-24 16:58:00 Kim Encarnacion [facility] REFERRAL- REQUEST/RESPONSE 2023-04-17 06:01:00 Doctor Unassigned, [place] [facility] REFERRAL- REQUEST/RESPONSE 2023-04-02 06:01:00 Doctor Unassigned, [place] [facility] REFERRAL- REQUEST/RESPONSE 2023-03-24 06:01:00 Doctor Unassigned, [place] [facility] Carpal Tunnel Surgery [facility] Knee Surgery [facility] Encounters Start Date/Time End Date/Time Encounter Type Admission Type Attending Clinicians Care Facility Care Department Encounter ID Source 2024-08-23 12:30:00 2024-08-23 12:30:00 Outpatient UMESH GARCÍA [facility] [id number] [facility] 2024-07-27 20:00:00 2024-07-27 20:00:00 Outpatient EM KEBEDE STRAMACarlos [facility] [id number] [facility] 2024-06-14 00:00:00 2024-06-14 00:00:00 BARTOLOME Mock: [address], [facility] G, [place] [address] , Ph. [facility], [place] [id number] 0217 [facility] 2024-05-06 00:00:00 2024-06-12 18:23:16 Patient Secure Msg Doctor Unassigned, [place] Doctor Unassigned, [place] [facility] 1.840.114 350.1.13.10 4.2.7.2.686 [id number] [facility] 2023-09-24 00:00:00 2024-06-12 07:40:22 Orders Only Doctor Unassigned, [place] Doctor Unassigned, [place] [facility] 1.840.114 350.1.13.10 4.2.7.2.686 [id number] [facility] 2023-09-24 00:00:00 2024-06-12 07:40:09 Orders Only Doctor Unassigned, [place] Doctor Unassigned, [place] [facility] 1.2840.114 350.1.13.10 4.2.7.2.686 [id number] [facility] 2023-09-24 00:00:00 2024-06-12 07:40:05 Orders Only Doctor Unassigned, [place] Doctor Unassigned, [place] [facility] 1.2.840.114 350.1.13.10 4.2.7.2.686 [id number] [facility] 2023-10-20 00:00:00 2024-06-12 07:27:51 Orders Only Doctor Unassigned, [place] Doctor Unassigned, [place] [facility] 1.2.840.114 350.1.13.10 4.2.7.2.686 [id number] [facility] 2023-10-24 00:00:00 2024-06-12 07:25:09 Orders Only Doctor Unassigned, [place] Doctor Unassigned, [place] [facility] 1.2.840.114 350.1.13.10 4.2.7.2.686 [id number] [facility] 2023-10-24 00:00:00 2024-06-12 07:25:00 Orders Only Doctor Unassigned, [place] Doctor Unassigned, [place] [facility] 1.2.840.114 350.1.13.10 4.2.7.2.686 [id number] [facility] 2023-07-31 00:00:00 2024-06-12 02:27:31 Orders Only Doctor Unassigned, [place] Doctor Unassigned, [place] [facility] 1.2.840.114 350.1.13.10 4.2.7.2.686 [id number] [facility] 2023-07-31 00:00:00 2024-06-12 02:27:25 Orders Only Doctor Unassigned, [place] Doctor Unassigned, [place] [facility] 1.2.840.114 350.1.13.10 4.2.7.2.686 [id number] [facility] 2023-08-18 00:00:00 2024-06-12 02:14:56 Orders Only Doctor Unassigned, [place] Doctor Unassigned, [place] [facility] 1.2.840.114 350.1.13.10 4.2.7.2.686 [id number] [facility] 2023-08-18 00:00:00 2024-06-12 02:14:46 Orders Only Doctor Unassigned, [place] Doctor Unassigned, [place] [facility] 1.2.840.114 350.1.13.10 4.2.7.2.686 [id number] [facility] 2024-06-10 00:00:00 2024-06-10 00:00:00 [facility] [place], [facility]-: [address], [facility], [place] [address] , Ph. [facility], [facility]- [id number] 0213 [facility] 2024-06-01 10:46:13 2024-06-01 12:04:02 Outpatient Elective ROSY PACHECO [facility] [id number] EOUT 2024-06-01 10:15:00 2024-06-01 12:04:02 Consult Rosy Pacheco [place] [id number] 1.2.840.114 350.1.13.70 8.2.7.2.686 [id number] Skip llamas [facility] 2024-05-26 09:20:00 2024-05-26 09:29:55 Outpatient BC DINH [facility] [id number] [facility] 2024-05-26 09:20:00 2024-05-26 09:29:55 Office Visit Bc Polanco [facility] 1.2.840.114 350.1.13.10 4.2.7.2.686 [id number] [facility] 2024-05-26 00:00:00 2024-05-26 08:28:52 Telephone Abdirahman [facility] 1..840.114 350.1.13.10 4.2.7.2.686 [id number] [facility] 2024-05-21 10:00:00 2024-05-21 10:43:33 Outpatient R UMESH GARY [facility] [id number] [facility] 2024-05-21 10:00:00 2024-05-21 10:43:33 Office [facility] 1..840.114 350.1.13.10 4.2.7.2.686 [id number] [facility] 2024-05-19 09:40:00 2024-05-19 09:40:00 [facility] [id number] [facility] 2024-05-07 10:00:00 2024-05-07 10:00:00 Outpatient R EB HURST [facility] [id number] [facility] 2024-05-05 00:00:00 2024-05-05 00:00:00 BARTOLOME Mock: [address] , [place] [address] , Ph. [phone] [facility], [place] [id number] 0108 [facility] 2024-03-30 00:00:00 2024-03-30 00:00:00 Devendradelores Jamesse, [facility]: [address], [address], [place]ER[place] Nunez [address] , Ph. [facility], BROOKLYNN JAMES, [facility]- [phone] 1203 [facility] 2024-03-22 10:15:00 2024-03-22 10:44:40 [facility] R [facility] [id number] [facility] 2024-03-22 10:15:00 2024-03-22 10:44:40 [facility] 1.2840.114 350.1.13.10 4.2.7.2.686 [id number] [facility] 2024-02-16 09:15:00 2024-02-16 09:15:00 Outpatient R BEV HERNANDEZ [facility] [id number] [facility] 2024-02-06 00:00:00 2024-02-10 15:35:20 Telephone Umesh Gary [facility] 1.2840.114 350.1.13.10 4.2.7.2.686 [id number] [facility] 2024-02-05 00:00:00 2024-02-05 11:09:01 Telephone Rosemarie Hsu Kassandra [facility] 1.2840.114 350.1.13.10 4.2.7.2.686 [id number] [facility] 2024-01-16 15:15:00 2024-01-16 16:00:00 Ancillary Visit Marilyn Whitney 1, [employer] [address], [employer] [facility] 1.2.840.114 350.1.13.10 4.2.7.2.686 [id number] [facility] 2024-01-16 15:15:00 2024-01-16 15:15:00 Outpatient MARILYN MARTE MAHSA [facility] [id number] [facility] 2024-01-01 00:00:00 2024-01-01 00:00:00 Brooklynn James [facility]: [address], [address], [place] [address] , Ph. [facility] - [facility], [place]RIO M[place]- [address] 0905 [facility] 2023-12-12 00:00:00 2023-12-12 09:58:50 Telephone Herson Sears [facility] 1.2.840.114 350.1.13.10 4.2.7.2.686 [id number] [facility] 2023-12-11 00:00:00 2023-12-12 08:25:49 Telephone Jaron [facility] 1.2840.114 350.1.13.10 4.2.7.2.686 [id number] [facility] 2023-11-25 00:00:00 2023-11-25 09:50:32 Telephone Rosemarie Hsu [facility] 1.2.840.114 350.1.13.10 4.2.7.2.686 [id number] [facility] 2023-11-18 08:30:00 2023-11-18 12:30:00 Office Visit Tabatha Willoughby [facility] 1.2.840.114 350.1.13.10 4.2.7.2.686 [id number] [facility] 2023-11-18 08:30:00 2023-11-18 08:30:00 Outpatient R TABATHA WILLOUGHBY NANCY [facility] [id number] [facility] 2023-11-14 10:30:00 2023-11-14 11:24:35 Outpatient R UMESH GARY [facility] [id number] [facility] 2023-11-14 10:30:00 2023-11-14 11:24:35 Office Visit Umesh Gary [facility] 1..114 350.1.13.10 4.2.7.2.686 [id number] [facility] 2023-10-29 00:00:00 2023-10-29 00:00:00 BARTOLOME Mock: [address] [place] [address] , Ph. [facility] [id number] [facility] 2023-10-21 00:00:00 2023-10-21 00:00:00 ERASTO MockC: [address] [place] [address] , Ph. [facility] [phone] 0625 [facility] 2023-10-17 00:00:00 2023-10-17 09:38:26 Telephone [facility]..114 350.1.13.10 4.2.7.2.686 [id number] [facility] 2023-10-13 08:00:00 2023-10-13 08:00:00 Outpatient R TABATHA WILLOUGHBY NANCY [facility] [id number] [facility] 2023-10-03 15:30:00 2023-10-03 17:08:00 Outpatient R UMESH GARY [facility] [id number] [facility] 2023-10-03 15:30:00 2023-10-03 17:08:00 Office Visit Umesh Gary [facility] 1.840.114 350.1.13.10 4.2.7.2.686 [id number] [facility] 2023-09-29 00:00:00 2023-09-29 00:00:00 BARTOLOME Mock: [address], [place] [address] , Ph. [phone] [facility], [place] [phone] [facility] 2023-09-15 00:00:00 2023-09-15 09:12:34 Telephone Rhonda Larson [facility] 1..840.114 350.1.13.10 4.2.7.2.686 [id number] [facility] 2023-08-28 00:00:00 2023-08-28 00:00:00 Telephone Herson Sears [facility] 1.840.114 350.1.13.10 4.2.7.2.686 [id number] [facility] 2023-08-27 00:00:00 2023-08-27 00:00:00 BARTOLOME Mock: [address], [place] [address] , Ph. [facility], [facility], [facility] [phone] [id number] 2023-08-18 00:00:00 2023-08-18 00:00:00 Telephone Rhonda Larson PLANASIMA 1.2.840.114 350.1.13.10 4.2.7.2.686 [id number] [facility] 2023-08-18 00:00:00 2023-08-18 00:00:00 Telephone Rhonda Larson PLANASIMA [id number] 350.1.13.10 4.2.7.2.686 [id number] [facility] 2023-08-18 00:00:00 2023-08-18 00:00:00 Telephone Rhonda Larson PLAZA 1.2.840.114 350.1.13.10 4.2.7.2.686 [id number] [id number] [facility] 2023-08-07 00:00:00 2023-08-07 00:00:00 [facility], [facility]: [address] [place] [address] , Ph. CHRETIEN_F [facility], [facility], [employer] [id number] [id number] [facility] 2023-08-04 00:00:00 2023-08-04 00:00:00 Outpatient CHRETIEN_F [facility] [id number] 0408 [facility] 2023-08-02 00:00:00 2023-08-02 00:00:00 Outpatient CHRETIEN_F [facility] [id number] [facility] 2023-07-31 00:00:00 2023-07-31 00:00:00 Telephone Rhonda Larson CAR[facility] 1.2840.114 350.1.13.10 4.2.7.2.686 [id number] [facility] 2023-07-31 00:00:00 2023-07-31 00:00:00 Telephone Rhonda Larson [facility] 1.284.114 350.1.13.10 4.2.7.2.686 [id number] 095 [id number] [facility] 2023-07-21 00:00:00 2023-07-21 00:00:00 DEMETRIO Mock-C: [address], [facility], [place] [address] , Ph. CHRETIEN_F [facility], [facility]- [address] 0325 [facility] 2023-07-17 00:00:00 2023-07-17 00:00:00 Telephone [facility] 1.84.114 350.1.13.10 4.2.7.2.686 [id number] [id number] [facility] 2023-07-10 00:00:00 2023-07-10 00:00:00 Orders Only Doctor Unassigned, [place] [facility] 1..114 350.1.13.10 4.2.7.2.686 [id number] [id number] [facility] 2023-06-27 09:00:00 2023-06-27 09:00:00 Outpatient CAROLIN LOW [facility] [id number] [facility] 2023-06-23 14:45:00 2023-06-23 16:05:25 Outpatient R CASILLASBLU CRAIG [facility] [id number] [facility] 2023-06-23 14:45:00 2023-06-23 16:05:25 Office Visit Blu Casillas [facility] 1.2840.114 350.1.13.10 4.2.7.2.686 [id number] [facility] 2023-06-23 00:00:00 2023-06-23 00:00:00 Orders Only Doctor Unassigned, [place] [facility] 1.2840.114 350.1.13.10 4.2.7.2.686 [id number] [id number] [facility] 2023-06-18 00:00:00 2023-06-18 00:00:00 Telephone Rosemarie Hsu 1.2840.114 350.1.13.10 4.2.7.2.686 [id number] 086 [id number] [facility] 2023-06-11 00:00:00 2023-06-11 00:00:00 Orders Only Doctor Unassigned, [place] [facility] 1.2.840.114 350.1.13.10 4.2.7.2.686 [id number] [id number] [facility] 2023-06-10 00:00:00 2023-06-10 00:00:00 Telephone Blu Casillas [facility] 1.20.114 350.1.13.10 4.2.7.2.686 [id number] [facility] 2023-06-09 14:30:00 2023-06-09 16:05:00 Surgery Blu Casillas [facility] [place] 1.2840.114 350.1.13.10 4.2.7.2.686 [id number] [facility] 2023-06-09 11:03:00 2023-06-09 15:30:00 Outpatient R BLU CASILLAS CRAIG [facility] [id number] [facility] 2023-06-09 11:03:00 2023-06-09 15:30:00 Hospital Encounter Blu Casillas [facility] 1.2840.114 350.1.13.10 4.2.7.2.686 [id number] [id number] [facility] 2023-06-09 00:00:00 2023-06-09 00:00:00 Orders Only Doctor Unassigned, [place] [facility] 1.2840.114 350.1.13.10 4.2.7.2.686 [id number] [id number] [facility] 2023-06-05 00:00:00 2023-06-05 00:00:00 Telephone Mya Fuentes Carlos [facility] 1.2840.114 350.1.13.10 4.2.7.2.686 [id number] [id number] [facility] 2023-06-04 00:00:00 2023-06-04 00:00:00 Orders Only Doctor Unassigned, [place] [facility] 1.2840.114 350.1.13.10 4.2.7.2.686 [id number] [id number] [facility] 2023-06-04 00:00:00 2023-06-04 00:00:00 Telephone Carolin Casas [facility] 1.2840.114 350.1.13.10 4.2.7.2.686 [id number] [id number] [facility] 2023-06-03 00:00:00 2023-06-03 00:00:00 Orders Only Doctor Unassigned, [place] [facility] 1.2.840.114 350.1.13.10 4.2.7.2.686 [id number] [id number] [facility] 2023-06-03 00:00:00 2023-06-03 00:00:00 [facility] 1.2.840.114 350.1.13.10 4.2.7.2.686 [id number] 059 [id number] [facility] 2023-06-03 00:00:00 2023-06-03 00:00:00 Telephone Mya Fuentes [facility] 1.2.840.114 350.1.13.10 4.2.7.2.686 [id number] [id number] [facility] 2023-06-02 15:00:00 2023-06-02 23:59:00 Outpatient R [facility] [id number] [facility] 2023-06-02 15:00:00 2023-06-02 23:59:00 Hospital Encounter Augusto [facility] 1.2840.114 350.1.13.10 4.2.7.2.686 [id number] [facility] 2023-06-02 16:00:00 2023-06-02 16:15:00 Preform Machine Operator Visit 2, Adc Lab Augusto [facility] 1.2.840.114 350.1.13.10 4.2.7.2.686 [id number] [facility] 2023-06-02 14:00:00 2023-06-02 14:54:28 Office Visit Herson Sears [facility] 1.2.840.114 350.1.13.10 4.2.7.2.686 [id number] [id number] [facility] 2023-05-30 00:00:00 2023-05-30 00:00:00 Prep For Surgery Blu Casillas [facility] 1.2.840.114 350.1.13.10 4.2.7.2.686 [id number] [facility] 2023-05-28 15:00:00 2023-05-28 15:00:01 Outpatient R BLU CASILLAS BLU [facility] [id number] [facility] 2023-05-28 15:00:00 2023-05-28 15:00:01 Office Visit Blu Casillas [facility] 1.2.840.114 350.1.13.10 4.2.7.2.686 [id number] [facility] 2023-05-26 00:00:00 2023-05-26 00:00:00 Telephone CasasCarolin kruse [facility] 1.2.840.114 350.1.13.10 4.2.7.2.686 [id number] 059 [id number] [facility] 2023-05-23 10:30:00 2023-05-23 11:16:51 Outpatient R CASAS KENYATTAINGRID [facility] [id number] [facility] 2023-05-23 10:30:00 2023-05-23 11:16:51 [facility] 1.2840.114 350.1.13.10 4.2.7.2.686 [id number] [id number] [facility] 2023-05-23 09:00:00 2023-05-23 09:00:00 Outpatient R CASAS KENYATTAINGRID [facility] [id number] [facility] 2023-05-23 00:00:00 2023-05-23 00:00:00 Orders Only Doctor Unassigned, [place] [facility] 1.2.840.114 350.1.13.10 4.2.7.2.686 [id number] [id number] [facility] 2023-05-21 00:00:00 2023-05-21 00:00:00 Telephone Rhonda Larson JEZNASIMA 1.2.840.114 350.1.13.10 4.2.7.2.686 [id number] [id number] [facility] 2023-05-20 12:40:00 2023-05-20 12:40:00 Outpatient HERSON MA HOWARD [facility] [id number] [facility] 2023-05-13 00:00:00 2023-05-13 00:00:00 Telephone Rhonda LarsonFreddie LUGO 1.2.840.114 350.1.13.10 4.2.7.2.686 [id number] [facility] 2023-05-09 00:00:00 2023-05-09 00:00:00 Outpatient CHRETIEN_F [facility] [id number] [facility] 2023-05-09 00:00:00 2023-05-09 00:00:00 Tanna Weiss APRN, MSN, PIERCING ARTIST-: [address] [place] [address], [address] [place] [address] , Ph. [facility] [id number] [facility] 2023-05-08 09:38:21 2023-05-08 23:59:00 Outpatient HERSON MA HOWARD [facility] [id number] [facility] 2023-05-08 09:38:21 2023-05-08 23:59:00 Hospital Herson De Los Santos [facility] 1.2840.114 350.1.13.10 4.2.7.2.686 [id number] [facility] 2023-05-06 00:00:00 2023-05-06 00:00:00 Telephone Carlos Rosemarie Tipton 1.2840.114 350.1.13.10 4.2.7.2.686 [id number] 086 [id number] [facility] 2023-05-01 00:00:00 2023-05-01 00:00:00 Telephone JaronHerson loya [facility] 1.84.114 350.1.13.10 4.2.7.2.686 [id number] [facility] 2023-04-24 09:58:39 2023-04-24 23:59:00 Hospital Encounter Radiology [facility] 1.84.114 350.1.13.10 4.2.7.2.686 [id number] [facility] 2023-04-24 09:58:39 2023-04-24 23:59:00 Outpatient R RADIOLOGY [facility] [id number] [facility] 2023-04-18 13:00:00 2023-04-18 14:08:29 Outpatient R HERSON SEARS HOWARD [facility] [id number] [facility] 2023-04-18 13:00:00 2023-04-18 14:08:29 Office Visit Jaron Herson [place] [facility] 1..840.114 350.1.13.10 4.2.7.2.686 [id number] [facility] 2023-04-17 00:00:00 2023-04-17 00:00:00 Outpatient R RADIOLOGY [facility] [id number] [facility] 2023-04-17 00:00:00 2023-04-17 00:00:00 Orders Only Doctor Unassigned, [place] [facility] 1.2840.114 350.1.13.10 4.2.7.2.686 [id number] [id number] [facility] 2023-04-04 00:00:00 2023-04-04 00:00:00 Telephone Rhonda Larson KEVIN LU[facility] 1.840.114 350.1.13.10 4.2.7.2.686 [id number] 086 [id number] [facility] 2023-04-02 00:00:00 2023-04-02 00:00:00 Orders Only Doctor Unassigned, [place] [facility] 1.2.840.114 350.1.13.10 4.2.7.2.686 [id number] [id number] [facility] 2023-04-01 00:00:00 2023-04-01 00:00:00 Outpatient CHRETIEN_F [facility] [id number] [facility] 2023-04-01 00:00:00 2023-04-01 00:00:00 Telephone [facility]Herson [facility] 1..840.114 350.1.13.10 4.2.7.2.686 [id number] [id number] [facility] 2023-03-31 00:00:00 2023-03-31 00:00:00 Outpatient CHRETIEN_F [facility] [id number] [facility] 2023-03-31 00:00:00 2023-03-31 00:00:00 Shelby Vargas APRN-DEMETRIO-B C: [address], [address], [place] [address] , [facility]. [facility] [id number] 2023-03-24 00:00:00 2023-03-24 00:00:00 Orders Only Doctor Unassigned, [place] [facility] 1.2.840.114 350.1.13.10 4.2.7.2.686 [id number] [facility] 2023-03-04 00:00:00 2023-03-04 00:00:00 Outpatient CHRETIEN_F [facility] [id number] [facility] 2023-03-04 00:00:00 2023-03-04 00:00:00 Shelby Vargas APRN-PIERCING ARTIST-B C: [address] [place] [address], [address] [place] [address] , Ph. [facility] [id number] [facility] 2023-02-26 00:00:00 2023-02-26 00:00:00 Outpatient CHRETIEN_F [facility] [id number] [facility] 2023-02-26 00:00:00 2023-02-26 00:00:00 Shelby Vargas MOBILE LAB TECHNICIAN-PIERCING ARTIST-B C: [address] [place] [address], Suite [facility], [place] [address] , Ph. [facility] [id number] [facility] 2023-02-25 00:00:00 2023-02-25 00:00:00 Outpatient CHRETIEN_F [facility] [id number] 1031 [facility] 2021-12-04 00:00:00 2021-12-04 00:00:00 Outpatient Yan_W MMG MMG [id number] [facility] 2021-12-04 00:00:00 2021-12-04 00:00:00 Feliz Forrester MD: [address], [address], [place] [address] , Ph. [facility] - Otolaryngol ogy-MOB [id number] [facility] 2021-10-24 04:08:00 2021-10-24 04:08:00 Outpatient Yan_W MMG MMG [id number] [facility] 2021-10-24 04:08:00 2021-10-24 04:08:00 Outpatient Yan_W MMG MMG [id number] [facility] 2021-10-24 00:00:00 2021-10-24 00:00:00 Feliz Forrester MD: [address], [address], [place] [address] , Ph. [facility] - Otolaryngol ogy-MOB [id number] [facility] 2021-10-02 01:32:00 2021-10-02 01:32:00 Outpatient Yan_W MMG MMG [id number] [facility] Results Test Description Test Time Test Comments Results Resul t Comments Source REFERRAL- REQUEST/RESPONSE 2023-10-24 19:32:18 Ordered by an unspecified provider. [facility] REFERRAL- REQUEST/RESPONSE 2023-10-24 19:32:10 Ordered by an unspecified provider. [facility] REFERRAL- REQUEST/RESPONSE 2023-10-20 20:44:44 Ordered by an unspecified provider. [facility] REFERRAL- REQUEST/RESPONSE 2023-09-24 14:20:44 Ordered by an unspecified provider. [facility] REFERRAL- REQUEST/RESPONSE 2023-09-24 14:19:38 Ordered by an unspecified provider. [facility] REFERRAL- REQUEST/RESPONSE 2023-09-24 14:19:28 Ordered by an unspecified provider. [facility] REFERRAL- REQUEST/RESPONSE 2023-08-18 19:37:41 Ordered by an unspecified provider. [facility] REFERRAL- REQUEST/RESPONSE 2023-08-18 18:54:20 Ordered by an unspecified provider. [facility] REFERRAL- REQUEST/RESPONSE 2023-07-31 12:53:10 Ordered by an unspecified provider. [facility] REFERRAL- REQUEST/RESPONSE 2023-07-31 12:46:35 [facility]dered by an unspecified provider. [id number] 23:43:15 * Test Item Value Reference Range Interpretation Comme nts TSH (test code = 5217746720) 3.15 0.45-4.70 Lab Interpretation (test cod e = 61472-2) Normal [facility] [id number] 23:43:15 * Test Item Value Reference Range Interpretation Comme nts TSH (test code = 5946924765) 3.15 0.45-4.70 Lab Interpretation (test cod e = 82897-9) Normal [facility] Met[facility] Panel (40664)2023-06-02 23:13:11* Test Item Value Reference Range Interpretation Comme nts NA (test code = 5826540487) 139 mmol/L 135-145 K (test code = 9177891366) 4.6 mmol/L 3.5-5.0 CL (test code = 7884935858) 103 mmol/L 98-108 CO2 TOTAL (test code = 8451635248) 30 mmol/L 23-31 AGAP (test code = 8972207721) 6 2-16 BUN (test code = 4916711246) 19 mg/dL 7-23 GLUCOSE (test code = 4774731415) 93 mg/dL 70-110 CREATININE (test code = 6955314835) 1.19 mg/dL 0.60-1.25 TOTAL BILI (test code = 1811662617) 0.6 mg/dL 0.1-1.1 CALCIUM (test code = 6146370377) 9.8 mg/dL 8.6-10.6 T PROTEIN (test code = 2316881185) 7.6 g/dL 6.3-8.2 ALBUMIN (test code = 7673834817) 4.4 g/dL 3.5-5.0 ALK PHOS (test code = 2700703729) 93 U/L 34-122 ALTv (test code = 1742-6) 47 U/L 5-50 AST(SGOT) (test code = 1179294098) 46 U/L 13-40 H eGFR (test code = 24392-2) 71.2 mL/min/1.73m2 CKD-EPI eGFR (2020). Assuming creatinine has been stable day-to-day for at least three months, the eGFR indicates Category G2 (60 - 89 mL/min/1.73 m2) Lab Interpretation (test code = 86030-7) Abnormal [facility]st[facility]IP[facility] PAN[facility] (77177)(TOTAL CHOLESTEROL, TRIGLYCERIDES, HDL)2023-06-02 23:13:11* Test Item Value Reference Range Interpretation Comme nts CHOL (test code = 6101978126) 257 mg/dL 120-200 H HDL (test code = 9052754011) 63 mg/dL >=40 HDLC RATIO (test code = 5006385331) 4.1 <=5.0 TRIG (test code = 9817461589) 132 mg/dL 30-170 LDL CHOL (test code = 97248-4) 168 mg/dL <=160 H VLDL (test code = 4680780140) 26 mg/dL 5-60 Lab Interpretation (test cod e = 65609-0) Abnormal [facility] Metabolic Panel (99872)2023-06-02 23:13:11* Test Item Value Reference Range Interpretation Comme nts NA (test code = 8375703563) 139 mmol/L 135-145 K (test code = 9837765870) 4.6 mmol/L 3.5-5.0 CL (test code = 9386052465) 103 mmol/L 98-108 CO2 TOTAL (test code = 8666376380) 30 mmol/L 23-31 AGAP (test code = 3164090903) 6 2-16 BUN (test code = 0638514070) 19 mg/dL 7-23 GLUCOSE (test code = 1672478593) 93 mg/dL 70-110 CREATININE (test code = 9967137206) 1.19 mg/dL 0.60-1.25 TOTAL BILI (test code = 8064765705) 0.6 mg/dL 0.1-1.1 CALCIUM (test code = 6949228282) 9.8 mg/dL 8.6-10.6 T PROTEIN (test code = 1947301485) 7.6 g/dL 6.3-8.2 ALBUMIN (test code = 6075989777) 4.4 g/dL 3.5-5.0 ALK PHOS (test code = 2678733767) 93 U/L 34-122 ALTv (test code = 1742-6) 47 U/L 5-50 AST(SGOT) (test code = 4397900754) 46 U/L 13-40 H eGFR (test code = 17261-4) 71.2 mL/min/1.73m2 CKD-EPI eGFR (2020). Assuming creatinine has been stable day-to-day for at least three months, the eGFR indicates Category G2 (60 - 89 mL/min/1.73 m2) Lab Interpretation (test code = 39490-9) Abnormal [facility]st[facility] (37592)(TOTAL CHOLESTEROL, TRIGLYCERIDES, HDL)2023-06-02 23:13:11* Test Item Value Reference Range Interpretation Comme nts CHOL (test code = 6441882578) 257 mg/dL 120-200 H HDL (test code = 3752067312) 63 mg/dL >=40 HDLC RATIO (test code = 8909171001) 4.1 <=5.0 TRIG (test code = 4278685896) 132 mg/dL 30-170 LDL CHOL (test code = 06557-7) 168 mg/dL <=160 H VLDL (test code = 2422452247) 26 mg/dL 5-60 Lab Interpretation (test cod e = 20877-4) Abnormal [facility] WITH [id number] 22:49:23* Test Item Value Reference Range Interpretation Comme nts WBC (test code = 6690-2) 6.49 4.20-10.70 RBC (test code = 789-8) 5.67 4.26-5.52 H HGB (test code = 718-7) 15.9 g/dL 12.2-16.4 HCT (test code = 4544-3) 49.6 % 38.4-49.3 H MCV (test code = 787-2) 87.5 fL 81.7-95.6 MCH (test code = 785-6) 28.0 pg 26.1-32.7 MCHC (test code = 786-4) 32.1 g/dL 31.2-35.0 RDW-SD (test code = 32449-4) 42.6 fL 38.5-51.6 RDW-CV (test code = 788-0) 13.3 % 12.1-15.4 PLT (test code = 777-3) 276 150-328 MPV (test code = 72448-5) 9.3 fL 9.8-13.0 L NRBC/100 WBC (test code = 2621469129) 0.0 0.0-10.0 NRBC x10^3 (test code = 3027066382) See_Comment [Automated messa ge] The system which generated this result transmitted reference range: 10*3/?L. The reference range was not used to interpret this result as normal/abnormal. GRAN MAT (NEUT) % (test code = 770-8) 61.0 % IMM GRAN % (test code = 0615091685) 0.30 % LYMPH % (test code = 736-9) 26.8 % MONO % (test code = 5905-5) 7.2 % EOS % (test code = 713-8) 3.9 % BASO % (test code = 706-2) 0.8 % GRAN MAT x10^3(ANC) (test code = 8446239580) 3.96 10*3/uL 1.99-6.95 IMM GRAN x10^3 (test code = 5309852156) 0.00-0.06 LYMPH x10^3 (test code = 731-0) 1.74 10*3/uL 1.09-3.23 MONO x10^3 (test code = 742-7) 0.47 10*3/uL 0.36-1.02 EOS x10^3 (test code = 711-2) 0.25 10*3/uL 0.06-0.53 BASO x10^3 (test code = 704-7) 0.05 10*3/uL 0.01-0.09 Lab Interpretation (test code = 44904-0) Abnormal [facility] WITH [id number] 22:49:23* Test Item Value Reference Range Interpretation Comme nts WBC (test code = 6690-2) 6.49 4.20-10.70 RBC (test code = 789-8) 5.67 4.26-5.52 H HGB (test code = 718-7) 15.9 g/dL 12.2-16.4 HCT (test code = 4544-3) 49.6 % 38.4-49.3 H MCV (test code = 787-2) 87.5 fL 81.7-95.6 MCH (test code = 785-6) 28.0 pg 26.1-32.7 MCHC (test code = 786-4) 32.1 g/dL 31.2-35.0 RDW-SD (test code = 20498-4) 42.6 fL 38.5-51.6 RDW-CV (test code = 788-0) 13.3 % 12.1-15.4 PLT (test code = 777-3) 276 150-328 MPV (test code = 94194-5) 9.3 fL 9.8-13.0 L NRBC/100 WBC (test code = 9817956452) 0.0 0.0-10.0 NRBC x10^3 (test code = 2930346196) See_Comment [Automated messa ge] The system which generated this result transmitted reference range: 10*3/?L. The reference range was not used to interpret this result as normal/abnormal. GRAN MAT (NEUT) % (test code = 770-8) 61.0 % IMM GRAN % (test code = 0211976161) 0.30 % LYMPH % (test code = 736-9) 26.8 % MONO % (test code = 5905-5) 7.2 % EOS % (test code = 713-8) 3.9 % BASO % (test code = 706-2) 0.8 % GRAN MAT x10^3(ANC) (test code = 9685838310) 3.96 10*3/uL 1.99-6.95 IMM GRAN x10^3 (test code = 1178453458) 0.00-0.06 LYMPH x10^3 (test code = 731-0) 1.74 10*3/uL 1.09-3.23 MONO x10^3 (test code = 742-7) 0.47 10*3/uL 0.36-1.02 EOS x10^3 (test code = 711-2) 0.25 10*3/uL 0.06-0.53 BASO x10^3 (test code = 704-7) 0.05 10*3/uL 0.01-0.09 Lab Interpretation (test code = 83918-3) Abnormal [facility] BRAIN WO CONTRAST WITH [id number] 19:07:55MR BRAIN WO CONTRAST WITH NEUROQUANT COMPARISON: None. HISTORY: memory loss, question of dementia. TECHNIQUE: Multisequence multiplanar MR images of the brain obtainedwithout IV contrast. Quantitative volumetry of the brain was performedusing NeuroQuant ([employer], [place], [place]) software package.The NeuroQuant analysis was based on a sagittal 3D volumetric MPRAGE pulsesequence. FINDINGS: The ventricles and cerebral sulci are normal in caliber and configuration.No midline shift, hydrocephalus or pathological extra-axial fluidcollection is present. The basal cisterns are unremarkable. No restricted diffusion is present to suggest acute infarct. A fewscattered T2/FLAIR hyperintense foci in the periventricular and deep whitematter are nonspecific but likely due to mild chronic microvascularischemic changes. No abnormal gradient blooming. The T2 flow voids for the major intracranial vessels are unremarkable. Noabnormal fluid signal is present in the mastoid air cells or paranasal airsinuses. Age Related Atrophy report demonstrates: Hippocampal Occupancy Score: 0.86.Hippocampi volume: 8.07 cc, normative percentile of 71.Superior Lateral Ventricles volume: 25.73, normative percentile of 41. Inferior Lateral Ventricles volume: 1.34, normative percentile of 29. The values listed above were within 2 SD of the mean.[facility] KNEE LEFT WO [id number] 17:15:47HISTORY: ?Pain in the left knee. TECHNIQUE: MR imaging of the left knee was done in multiple projectionsusing1.5T MR unit and standard protocol. FINDINGS: BONE AND JOINT: Trace amount of joint effusion and minimally distendedBaker's cyst noted. Diffuse grade III chondromalacia noted in all 3compartments of the knee joint with small area of stress-induced marrowedema in the peripheral weightbearing medial tibial condyle. MENISCI: Focal degeneration noted with blunting of the apex of small bodyportion of the lateral meniscus. Otherwise lateral meniscus is intact.However, medial meniscus showed complex, irregular shaped multiple tears inthe body extending into the posterior horn. LIGAMENTS ANDTENDONS: Patellar tendon, quadriceps complex, cruciateligaments and collateral ligaments are intact. CONCLUSIONS: 1. Complex, irregular shaped multiple tears in body of medial meniscus withextension of the posterior horn.2. Tricompartment left knee joint degenerative arthritis in the form ofdiffusegrade III chondromalacia, with trace joint effusion and small fluiddistended Ramirez's cyst.[facility] Notes Date/Time Note Provider Source 2024-06-03 11:18:28 Images from the original note were not included. Message received from [employer] via [employer]: Update IN Tuttle RN [facility] 2024-06-02 13:27:53 Images from the original note were not included. Message received from [employer] via [employer]: Update 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 Anuja Tuttle RN [facility] Referral ID Status Reason Start Date Expiration Date V isits Requested Visits Authorized [id number] Pending Review 06/02/2024 11/29/2024 1 1 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* Neurology (Routine) - Pending Review Specialty Diagnoses / Procedures Referred By Contac t Referred To Contact Diagnoses Memory impairment Recurrent syncope Procedures EEG Rosy Pacheco MD [address] [place] [address] Phone: tel: fax: Referral ID Status Reason Start Date Expiration Date V isits Requested Visits Authorized [id number] Pending Review 06/02/2024 11/29/2024 1 1 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* Consultation (Routine) - Pending Review Specialty Diagnoses / Procedures Referred By Contact Referred To Contact Neuropsychology / Psychology Diagnoses Memory impairment Cerebral microvascular disease Anxiety and depression Rosy Pacheco MD [address] [address] Phone: tel:[phone] fax:[phone] Pranav Patricia [address] [facility], [address], [place] [address] Phone: tel:[phone] fax:[phone] Referral ID Status Reason Start Date Expiration Date Visits Requested Visits Authorized [id number] Pending Review Specialty Services Required 06/02/2024 11/29/2024 1 1 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 60 MINUTES Brooklynn James, MACKENZIE [address] [place] [address] Phone: tel: fax: Rosy Pacheco MD [address] [address] Phone: tel: fax: Referral ID Status Reason Start Date Expiration Date Visits Requested Visits Authorized [id number] Pending Review Consult and Treat 05/14/2024 11/10/2024 1 1 [facility] [id number] 00:55:47* Audit-C Score Answer Date of Assessment Author 0 06/01/2024 11:04 AM Caroline Pritchett MA * * Over the past 2 weeks, how often have you been bothered by any of the following problems? Question Answer Date of Assessment Author Patient Health Questionnaire -2 Score 0 06/01/2024 12:00 PM Caroline Pritchett MA * Little interest or pleasure in doing things Answer Date of Assessment Author Not at all 06/01/2024 12:00 PM Caroline Pritchett MA * Feeling down, depressed, or hopeless Answer Date of Assessment Author Not at all 06/01/2024 12:00 PM Caroline Pritchett MA * Trouble falling or staying asleep, or sleeping too much Answer Date of Assessment Author Several days 06/01/2024 12:00 PM Caroline Pritchett MA * Feeling tired or having little energy Answer Date of Assessment Author Several days 06/01/2024 12:00 PM Caroline Pritchett MA * Poor appetite or overeating Answer Date of Assessment Author More than half the days 06/01/2024 12:00 PM Caroline Pritchett MA * Feeling bad about yourself - or that you are a failure or have let yourself or your family down Answer Date of Assessment Author Several days 06/01/2024 12:00 PM Caroline Pritchett MA * Trouble concentrating on things, such as reading the newspaper or watching television Answer Date of Assessment Author Nearly every day 06/01/2024 12:00 PM Caroline Pritchett MA * Moving or speaking so slowly that other people could have noticed? Or the opposite - being so fidgety or restless that you have been moving around a lot more than usual. Answer Date of Assessment Author Several days 06/01/2024 12:00 PM Caroline Pritchett MA * Thoughts that you would be better off or hurting yourself in some way Answer Date of Assessment Author Not at all 06/01/2024 12:00 PM Caroline Pritchett MA * Patient Health Questionnaire-9 Score Answer Date of Assessment Author 9 06/01/2024 12:00 PM Caroline Pritchett MA * If you checked off any problems on this questionnaire so far, Question Answer Date of Assessment Author How difficult have these problems made it for you to do your work, take care of things at home, or get along with other people? Very difficult 06/01/2024 12:00 PM Caroline Pritchett MA * Over the last 2 weeks, how often have you been bothered by any of the following problems? Question Answer Date of Assessment Author Feeling nervous, anxious, or on edge 1 06/01/2024 12:00 PM Caroline Pritchett MA Not being able to stop or co ntrol worrying 2 06/01/2024 12:00 PM Caroline Pritchett MA Worrying too much about diff erent things 0 06/01/2024 12:00 PM Caroline Pritchett MA Trouble relaxing 2 06/01/2024 12:00 PM Caroline Pritchett MA Being so restless that it is hard to sit still 1 06/01/2024 12:00 PM Caroline Pritchett MA Becoming easily annoyed or irritable 2 06/01/2024 12:00 PM Caroline Pritchett MA Feeling afraid as if somethi ng awful might happen 2 06/01/2024 12:00 PM Caorline Pritchett MA NEWTON-7 Total Score 10 06/01/2024 12:00 PM Caroline Pritchett MA [facility] [id number] 00:55:47* Rosy Pacheco MD - 06/01/2024 10:15 AM FLEX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 Niranjan Segura 1965 Chief Complaint Patient presents with Consult 58 yo male consult for memory loss Memory Loss Been having isses with memory for several years and doesn't seem to be getting better. MRI completed Apr 2023 Assessment & Plan Diagnoses and all orders for this visit: Cerebral microvascular disease Comments: Mild on testing from a year ago Memory impairment - Ambulatory referral to Neurology You will be scheduled with our office for an EEG and an EMG/NCV.Follow up with cardiology as we discussed. Recommend cardiology follow up including Holter study and ECHO Start vitamin B12 if you haven't already. Memory testing planned with Dr. Santos. You were given his contact info. Recommend psychiatry consultation for continued anxiety and depression. Agree with sleep study and use of CPAP under the management of the pulmonology service. SubjectivePt is a 58 yo male referred for complaints of memory loss which he feels started several years ago. He has been told that he has had strokes. He takes ASA 81 mg per day. He had an MRI of the raffaele done a year ago which is described below. Has not had neuropsych testing or Amyvid scan. He not been tried on meds for dementia. He has a history of depression and anxiety and is on both Celexa andduloxetine. He feels like these are worse. He is not seeing a psychiatrist. He would like to see one. He describes anhedonia and anxiety. PHQ-9 score if 9 and NEWTON score is 6. Labs done a year ago showed a B12 level of 270 and normal range TSH at 3.15. He does not know if the supplements he is taking has B12 in it. He gets distracted easily. He forgets conversations. He reports a few timeswhere he gets turned around when driving. No tickets or accidents reported. He has help from a friend to manage his bills. He forgets his pills as well. His friend helps him set that up. He is living with his son and grandson. His son works shift work and is gone a lot. He feels like the memory issues started in 2020. He has not been working for 3.5-4 years. At his previous job, he started having dizzy spells and syncope. Work up at that time included seeing a neurologist (Dr. Sears) ENT, and a community outreach worker (Dr. Polanco). He is vague as to what testing was done or what was found. We have no records. He just started going to a community outreach worker again who ordered an updated sleep study scheduled for July 27. He does not describe every having had a Holter study. In 2011, he was told that he had a stroke. He started having numbness in the right foot and ascended the body to the head. He went to the urgent care who suggested that he go to the ER but he did not. The next day, he felt persistent numbness in the right foot. He went to the ER the following day. He does not recall if he was admitted or not and does not have any record with him. He started the aspirin at that point. In 2017, he had a spell of chest pain and was told that he had a "TIA." He has had several other spells of chest pain as well that he refers to as TIA. HE has never been told that he has had an AL or has CAD. He is still getting dizziness episodically. His last actual syncopal spell was months ago. No seizure activity was observed. He recalls feeling like things were moving and he was light headed. He then blacked out, collapsing to the ground. No post ictal state is reported and he was able to get back to his activity. He reports that loud noises trigger dizzy spells. Moving his head side to side triggers symptoms as well. He describes what may have been an ENG. We don't have the results of that. He has been diagnosed with HECTOR in 2018 -- severe he reports. He never getstarted on a CPAP back when the diagnosis was made. He just started using this in January 2024 based on previous testing. He needs updated testing. He does feel better since starting the CPAP when he uses it. He really got disability approved. He has been without insurance for a while.He does not know what the diagnosis he got the disability. ObjectiveMR BRAIN WO CONTRAST WITH NEUROQUANT 05/08/2023 Impression No acute intracranial abnormality. Mild chronic microvascular ischemic changes. NeuroQuant Age Related Atrophy report demonstrates Normal Scan: Does notsupport neurodegeneration. Narrative MR BRAIN WO CONTRAST WITH NEUROQUANT COMPARISON: None. HISTORY: memory loss, question of dementia. TECHNIQUE: Multisequence multiplanar MR images of the brain obtainedwithout IV contrast. Quantitative volumetry of the brain was performed using NeuroQuant ([employer], [place], [place]) software package. The NeuroQuant analysis was based on a sagittal 3D volumetric MPRAGE pulse sequence. FINDINGS: The ventricles and cerebral sulci are normal in caliber and configuration.No midline shift, hydrocephalus or pathological extra-axial fluid collection is present. The basal cisterns are unremarkable. No restricted diffusion is present to suggest acute infarct. A fewscattered T2/FLAIR hyperintense foci in the periventricular and deep white matter are nonspecific but likely due to mild chronic microvascular ischemic changes. No abnormal gradient blooming. The T2 flow voids for the major intracranial vessels are unremarkable. No abnormal fluid signal is present in the mastoid air cells or paranasal air sinuses. Age Related Atrophy report demonstrates: Hippocampal Occupancy Score: 0.86.Hippocampi volume: 8.07 cc, normative percentile of 71. Superior Lateral Ventricles volume: 25.73, normative percentile of 41. Inferior Lateral Ventricles volume: 1.34, normative percentile of 29. The values listed above were within 2 SD of the mean. ntains abnormal data LIPID PANEL (85897)(TOTAL CHOLESTEROL, TRIGLYCERIDES, HDL) Order: [id number] Component Ref Range & Units 1 yr ago CHOL 120 - 200 mg/dL 257 High HDL >40 mg/dL 63 HDLC RATIO <=5.0 4.1 TRIG 30 - 170 mg/dL 132 LDL CHOL <=160 mg/dL 168 High VLDL 5 - 60 mg/dL 26 Resulting Agency [facility] Specimen Collected: 06/02/23 Comp. Metabolic Panel (05580)Order: [id number] Component Ref Range & Units 1 yr ago NA 135 - 145 mmol/L 139 K 3.5 - 5.0 mmol/L 4.6 CL 98 - 108 mmol/L 103 CO2 TOTAL 23 - 31 mmol/L 30 AGAP 2 - 16 6 BUN 7 - 23 mg/dL 19 GLUCOSE 70 - 110 mg/dL 93 CREATININE 0.60 - 1.25 mg/dL 1.19 TOTAL BILI 0.1 - 1.1 mg/dL 0.6 CALCIUM 8.6 - 10.6 mg/dL 9.8 T PROTEIN 6.3 - 8.2 g/dL 7.6 ALBUMIN 3.5 - 5.0 g/dL 4.4 ALK PHOS 34 - 122 U/L 93 ALTv 5 - 50 U/L 47 AST(SGOT) 13 - 40 U/L 46 High eGFR mL/min/1.73m2 71.2 Comment: CKD-EPI eGFR (2020). Assuming creatinine has been stable day-to-day for at least three months, the eGFR indicates Category G2 (60 - 89 mL/min/1.73 m2) Resulting Agency [facility] Specimen Collected: 06/02/23 16:11 Current Outpatient Medications:ASPIRIN 81 PO, See Instructions, 1 po qd, 0 Refill(s), Disp: , Rfl: citalopram (CeleXA) 20 MG tablet, , Disp: , Rfl: DULOXETINE HCL PO, 60 mg, PO, BID, 0 Refill(s), Disp: , Rfl: ezetimibe (Zetia) 10 MG tablet, Take 1 tablet by mouth every morning., Disp: , Rfl: LISINOPRIL PO, 20 mg, PO, Daily, 0 Refill(s), Disp: , Rfl: MONTELUKAST SODIUM PO, 10 mg, PO, Daily, 0 Refill(s), Disp: , Rfl: ROSUVASTATIN CALCIUM PO, 20 mg, PO, Daily, 0 Refill(s) (Patient not taking: Reported on 06/01/2024), Disp: , Rfl: Allergies Allergen Reactions Codeine Past Medical History:Diagnosis Date Hyperlipidemia Hypertension Stroke (cerebrum) (HCC) Past Surgical History:Procedure Laterality Date CARPAL TUNNEL RELEASE ELBOW SURGERY KNEE SURGERY Tobacco Use: Medium Risk (06/01/2024) Patient History Smoking Tobacco Use: Former Smokeless Tobacco Use: Never Passive Exposure: Not on file Alcohol Use: Not At Risk (06/01/2024)AUDIT-C Frequency of Alcohol Consumption: Never Average Number of Drinks: Patient does not drink Frequency of Binge Drinking: Never Physical Activity: Not on file No family history on file. Review of SystemsConstitutional: Full ROS was completed by patient and reviewed by provider See attached scanned document All other systems reviewed and are negative. Examination: BP 134/82 | Pulse 76 | Ht 1.727 m (5' 8") | Wt 113 kg (249 lb) | BMI 37.86kg/m? Neurological ExamMental Status Awake, alert and oriented to person, place and time. Speech is normal. Language is fluent with no aphasia. Attention and concentration are normal. Fund of knowledge is appropriate for level of education. MoCA score is 27/30 today. Rambles. Distracted easily. . Cranial NervesCN II: Visual rivas full to confrontation. CN III, IV, : Extraocular movements intact bilaterally. Pupils equal round and reactive to light bilaterally. CN V: Facial sensation is normal. CN VII: Full and symmetric facial movement. CN VIII: Hearing is normal. CN IX, X: Palate elevates symmetrically CN XI: Shoulder shrug strength is normal. CN XII: Tongue midline without atrophy or fasciculations. MotorNormal muscle bulk throughout. Normal muscle tone. Strength is 5/5 throughout all four extremities. SensoryLight touch is normal in upper and lower extremities. Pinprick is normal in upper and lower extremities. Temperature is normal in upper and lower extremities. Vibration is normal in upper and lower extremities. Proprioception is normal in upper and lower extremities. ReflexesRight Left Brachioradialis 2+ 2+ Biceps 2+ 2+ Triceps 2+ 2+ Patellar 2+ 2+ Achilles 2+ 2+ Right Plantar: downgoing Left Plantar: downgoing Right pathological reflexes: Ankle clonus absent.Left pathological reflexes: Ankle clonus absent. CoordinationRight: Jkywmk-af-pykn normal. Rapid alternating movement normal.Left: Rabpcg-ku-akle normal. Rapid alternating movement normal. GaitNormal casual, toe, heel and tandem gait. PHYSICAL EXAMINATION:General No apparent distress HENTAtraumatic. Anicteric. SkinVisible skin normal. RespirationBreathing is regular and unlabored. BILLING:On the day of this new patient evaluation, I personally spent 66 minutes performing selections from the following list: chart preparation, reviewing history, performing the medically necessary appropriate examination, counseling and education of the patient/family/caregiver, ordering medications, tests or procedures, referring and communicating with other health nurse behavioral health care (when not reported separately) documenting clinicall information in the electronic or other health record, independently interpreting results (not reported separately), communicating results to the patient/family/caregiver, and care coordination (not reported separately) Rosy Pacheco MD [facility] [id number] [place] [address] PH: [phone] [facility]2025-02-05 00:55:47Scheduled Orders Scheduled Referrals Name Type Priority Associated Diagnoses Orde r Schedule Ambulatory referral to Neuropsychology Outpatient Referral Routine Memory impairment Cerebral microvascular disease Anxiety and depression Expected: 06/02/2024 (Approximate), Expires: 06/01/2025 Health Maintenance Due Date Last Done Comments CT Colonography 1965 Colonoscopy 1965 Colorectal Cancer Screening 1965 FIT-DNA 1965 FIT 1965 FOBT 1965 Lipid Panel 1965 Medicare Annual Wellness (AWV) 1965 Sigmoidoscopy 1965 Annual Physical 1968 DTaP/Tdap/Td Vaccines (1 - Tdap) 1984 Hepatitis B Vaccines (1 of 3 - 19+ 3-dose series) 1984 Zoster Vaccines (1 of 2) 07/12/2015 Influenza Vaccine (#1) 2023 HIB Vaccines Aged Out No longer eligi ble based on patient's age to complete this topic HPV Vaccines Aged Out No longer eligi ble based on patient's age to complete this topic Hepatitis A Vaccines Aged Out No long er eligible based on patient's age to complete this topic IPV Vaccines Aged Out No longer eligi ble based on patient's age to complete this topic Meningococcal Vaccine Aged Out No catarina nuvia eligible based on patient's age to complete this topic Pneumococcal Vaccine: Pediat rics (0 to 5 Years) and At-Risk Patients (6 to 64 Years) Aged Out No longer eligible b ased on patient's age to complete this topic Rotavirus Vaccines Aged Out No longer eligible based on patient's age to complete this topic [facility] [id number] 00:55:47 Diagnosis Cerebral microvascular disease - Primary Unspecified cerebrovascular disease Memory impairment Memory loss HECTOR (obstructive sleep apnea) Obstructive sleep apnea (adult) (pediatric) Anxiety and depression B12 deficiency Sensory disturbance Disturbance of skin sensation Recurrent syncope [facility] [id number] 00:55:47 [place] [address] 10:24:46 Addended by: UMESH GARY NP on: 05/28/2024 10:24 AM Modules accepted: Orders [facility]2025-01-31 10:20:58 Addended by: ANUJA TUTTLE on: 05/28/2024 10:20 AM Modules accepted: Orders [place] [facility] CenterJjhspk5492-41-49 10:06:35 Called Niranjan kelly . Updated him on Medicare guideline requirements regarding a new sleep study being needed. He stated he understood and would do either in lab or home whichever Umesh prefers. Informed I'm Umesh will be updated, orders will be placed and that they scheduling team will reach out to him. He stated he preferred [place] location however he would travel wherever is needed. [facility]2025-01-31 09:43:55 Please inform the patient of this an my apologies. Give him the options of the in lab study vs the home sleep study. Thank you. [facility]2025-01-31 09:05:12 Images from the original note were not included. Message received from [employer] via [employer]: Medicare insurance requesting new ss with updated guidelines [facility] Anuja Tuttle [facility] CenterTbjozy5960-23-91 08:13:03 Images from the original note were not included. New start DME The following has been sent to the provider for completion via [employer]/FAX Orders pended for [employer] Prescription for CPAP Sleep study /data report dated - PSG 04.01.18 Demographics - Face sheet Insurance Information Current OVN 1.24.25 Progress Notes from office visit prior to sleep study - 02.24.18 Follow up due 31-90 days following initiation of any device. IN Anne MAUpper Valley Medical CenterGatgvw7255-63-32 15:30:32 Called patient & updated him on prednisone RX; patient requested pharmacy switch, updated RX sent to patient's preferred pharmacy. Advised him to increase humidity level on his PAP machine, to finish all of prednisone even if he starts to feel better & to call if his symptoms worsen and/or do not resolve. Patient agreeable to this. Elena Muro [facility] [id number] 13:21:28 Needs to increase the humidity level Can give him a round of prednisone too T [place] [id number] 09:53:20 Called patient, states at [facility] pressure was increased & has not been able to tolerate the therapy & only using the machine weekly. Patient unable to describe if pressure is too much or not enough, stated he is unsure of what he feels on current pressure. He states he has been feeling congested & with allergies at times, taking Benadryl, Afrin nasal spray, daytime non drowsy antihistamine, not taking Sudafed. He is on a nasal pillow mask & states he has no issues with this, only the pressure. Review of chart shows patient is on donated device at 10cm H2O. GENIE: 11/14/2023 NOV: 05/21/2024 [place] [id number] 10:12:35 Niranjan Segura is a 58 year old male would like to speak with nurse about cpap machine patient is not sleeping well Sami Llamas [facility]2024-10-10 11:08:29 Sent 01/15 audiology [facility] . Requesting auth for the ENT follow up appointment scheduled: 02/16/24. Rosemarie Tipton 02/05/2024 11:08 AM Rosemarie [place] [id number] 09:57:38 Explained plan of care per GENIE. Pt stated he had neuropsych testing completed. Dr. Willoughby's note is not available yet. Let pt know if he wanted to discuss results further he could schedule an appt with Dr. Sears once results were completed. Krystal Shaw [facility]2024-08-16 09:12:51 Niranjan Segura is a 58 year old male Pt is asking for the [employer] message sent to be explained. Please advise. Gabbie [facility]2024-08-15 15:09:18 Niranjan Segura is a 58 year old male Pt is calling asking if there is anything else he needs to do following his appt in May. He declined f/u appt and stated he wanted to know what wants. Please advise. Gabbie [facility]2024-07-30 09:50:05 OCPhyllis worked 11/13 file. Requested auth for follow up Pulmonary appointment scheduled 05/21/24 Rosemarie Tipton 11/25/2023 9:50 AM Rosemarie Carlos [place] [id number] 09:36:17 Faxed 10/02 file to [facility]. Requested auth for Nasal pillow ordered and follow up scheduled. Also asked for the auth for 2/5 encounter sent to [facility] on 06/18/23. Rosemarie Tipton 10/17/2023 9:38 AM Rosemarie TiptonUpper Valley Medical CenterQipoyw0712-14-93 09:11:33 OCPhyllis worked 1.26.24 cardio post visit file. Requesting auth for Pulm and follow up appointment scheduled. Rhonda Larson 09/15/2023 9:12 AM Rhonda Ferguson [facility]2024-05-02 09:50:45 Gave pt referral phone number so that he could inquire on getting scheduled for neuropsych testing. Advised to schedule f/u appt after testing if he would like to discuss results. Krystal Shaw [facility]2024-05-02 08:53:20 Niranjan Segura is a 58 year old male is calling and would like to know what testing he needs to complete for MD Sears. Advised that there is a referral for neuro psych testing and pt would like more information on that exam. Please advise [phone] (home) Giselle WaldronUpper Valley Medical CenterHfrkqt6669-12-10 15:07:43 Received authorization approval from [facility] for cardio Rhonda Larson 08/18/2023 3:08 PM Rhonda Ferguson [facility]2024-04-22 14:31:16 Received authorization approval from [facility] for psychiatrist Rhonda Larson 08/18/2023 2:31 PM Rhonda Ferguson [facility]2024-04-22 13:57:19 Received authorization approval from [facility] for cardio Rhonda Larson 08/18/2023 1:57 PM Rhonda Ferguson [place] [id number] 07:57:05 Received authorization approval from [facility] for Psychiatrist Rhonda Ferguson Larson 07/31/2023 7:57 AM Rhonda Ferguson [facility]2024-04-04 07:48:22 Received authorization approval from [facility] for cardio Rhonda Larson 07/31/2023 7:48 AM Rhonda Ferguson [place] [id number] 12:23:30 Returned pt call and let him know Dr. Sears did not order a hearing test, but ordered a referral to audiology. Explained to pt that this was ordered for them to do a work up for his tinnitus. Advised pt to take hearing test with him to pattern puncher appt. Pt verbalized understanding. Krystal Shaw [facility]2024-03-21 11:43:10 Pt requesting call back from clinic, states Dr. Sears ordered a hearing test for him but wants to know if his past hearing test results can be used or if he has to get a new test. Please F/u Julian PhippsUniversity Hospitals Samaritan Medical CenterBuhyjo9784-13-25 10:05:20 Sent 06/02 file to [facility]. Requested auth for audiology and neuro psych ordered. Rosemarie Tipton 06/18/2023 10:07 AM [facility] Rosemarie TiptonUpper Valley Medical [id number] 12:45:54 Called patient and let him know if it slips he can just re wrap it and keep it clean and dry until his follow up appointment. Skyla Stephens 06/10/2023 12:46 PM [facility]2024-02-13 11:57:12 Patient states he had surgery yesterday and his dressing slipped down and he can see the incision. He is calling for advice on what he needs to do. [facility] Elisabeth MercedesUpper Valley Medical CenterFeevuv3554-13-55 11:41:14 Patient was notified, he verbally understood and agreed to the plan. Thank you [facility]2024-02-13 11:18:23 Patient returning nurse phone call regarding results. Please advise [facility] Darlyn SibleyUpper Valley Medical [id number] 11:24:32 Attempted to contact patient with results/recommendations. M for patient to return call to [phone]. [place] [id number] 11:07:53 Thank you, I let the hospital know. Skyla Stephens 06/06/2023 11:08 AM [place] [id number] 10:29:35 Images from the original note were not included. [facility] Alexandria Naranjo [facility] [id number] 10:13:49 I will update my last note for preoperative clearance. Thanks Alexandria Casas MD associate professor of criminal justice. Division of cardiovascular medicine [facility] [place] [address]09 08:19:01 Dr Casas present in clinic. Will address today. [facility] Alexandria Naranjo [place] [id number] 17:18:59 Spoke with patient and discussed that cardiac clearance had not yet been received and no instructions received yet for ASA from cardiology. Patient verbalized understanding. [place] [id number] 17:03:27 Mr. Segura is scheduled for a left meniscectomy with Dr. Casillas on 06/09/23 and needs cardiac clearance for procedure. He also takes ASA 81 mg and needs pre-op instructions. Please advise, procedure is in four days. Thank you, Mya Fuentes Pre-op Screening RN [place] [address]-02-08 13:24:07 Will discuss alternative options with Mr. Niranjan Segura in the next visit in person. Carolin Casas MD associate professor of criminal justice. Division of cardiovascular medicine [facility] [place] [address]-02-08 13:11:37 There is no cardiac indication for aspirin. However, patient has history for TIAs and mini strokes in the past. If aspirin has to be discontinued prior to meniscectomy then this can be done for 5 days prior to the procedure to be resumed as early as possible afterwards. Carolin Casas MD associate professor of criminal justice. Division of cardiovascular medicine [facility] [place] [id number] 09:16:43 Routed message to community outreach worker to get cardiac clearance. Still haven't received anything from them. Faxed a letter requesting CC on 06/02/23. Skyla Stephens 06/05/2023 9:18 AM [place] [address]-02-07 10:48:47 Patient was notified of the results below, he verbally understood. Patient stated " he can't take statins, is there another medication you can call in for him"? He stated " his side effect is joint pain" will add to Allergies. [place] 350414-02-07 09:39:05 Images from the original note were not included. Attempted to contact patient with results/recommendations. LVM for patient to return call to [phone]. Carolin Casas MD P Cardiology Nurse Please let Mr. Niranjan Segura know that cholesterol level is elevated. Recommend starting rosuvastatin 20 mg daily. Carolin Casas MD P Cardiology Nurse Echo is unremarkable. [place] [id number] 14:28:02 Patient is scheduled for a meniscectomy with Dr. Casillas on 06/09/23. He takes ASA 81 mg daily. During his pre-op call he said he was not given instructions for his ASA. Is it okay for him to hold prior to surgery and if so, how long? Thank you, Mya Fuentes Pre-op Screening RN [facility]2024-02-06 14:18:25 Images from the original note were not included. Your procedure is at [facility] on 06/09/23. The address is [address] [place] [address], [id number]. [facility] nursing staff will call you the workday before your procedure to let you know what time to arrive.On the day of your procedure, please go inside that door and check in at the desk. Please note: You may not travel home alone and that includes in a taxi or by bus. We must speak to your Responsible Adult (who will be picking you up) the morning of your procedure, before the start of your procedure. This person must be an adult over the age of 18 years of age. Do not eat any solid food after midnight the night before surgery. You may have sips of clear liquids such as water, gatorade, and sprite up until two hours before your scheduled procedure. You may take your medications with a sip of water as directed by physician. Anticoagulants will be per physician guidance. Medication Note(s)/Instructions:Reports he did not receive pre-op instructions for ASA.Will send message to MD/cards. Instructions given to hold losartan-HCTZ day before and morning of surgery. Pending screening, we may test for COVID. If a patient tests positive, their cases are cancelled and/or rescheduled. COVID SCREENING NOTE: Denies COVID symptoms, no testing required. Additional requests, questions, concerns:n/a. CB number provided. Patient verbalized understanding of pre-op instructions and voiced no further questions at this time. [facility]2024-02-06 10:36:35 Images from the original note were not included. [facility] Alexandria Naranjo RNUpper Valley Medical [id number] 10:05:37 Patient requires cardiac clearance for Sx ON 06/09/[address] Casillas [facility] Orthopedics. Clearance request has been uploaded to patient chart and placed in LKJ folder for signature. IN SheaUpper Valley Medical [id number] 16:00:00 Images from the original note were not included. Venipuncture collection performed by clean technique on the right anticubitus. Total of 1 attempts were made. Slight pressure and a bandage/dressing were applied to the site(s). The patient experienced no complications. The following specimens were processed according to instructions and sent to [facility] laboratories per lab order on 06/02/2023: LT BLUE SST 2 RED LAV 1 PPT DK GREEN (LiHep) DK GREEN (SodH) ALEJANDRO DK BLUE (K2) DK BLUE (S) ACD Blood Culture NIPT/NTD Patient has been identified by and name and was provided with cup, antiseptic towelette, and clean catch instructions. 1 urine specimen(s) sent. Unpreserved 1 Urine Culture Aptima tube Other urine [place] [id number] 16:00:00 Addended by: CAROLIN SRIVASTAVA on: 06/02/2023 10:57 PM Modules accepted: Orders [place] [address]-01-30 16:23:52 Noted, reviewed the records. Олег Ibrahim [place] [address]-01-29 11:35:31 Requested medical records from [facility] faxed in and scanned into pts chart under external provider records. Can be found dated 05/26/23. 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 Jiada HollandYaredVIRGIEJoint Township District Memorial [id number] 12:47:25 Received authorization approval from [facility] for cardio Rhonda Larson 05/21/2023 12:47 PM 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 Rhonda Ferguson [facility]2024-01-16 14:41:04 Received authorization approval from [facility] for ortho. Rhonda Diazes 05/13/2023 2:41 PM 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 Rhonda Ferguson [facility]2024-01-09 12:15:00 Sent 04/18 file to [facility]. Requested auth for MRI ordered. Rosemarie Tipton 05/06/2023 12:15 PM 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 Rosemarie TiptonUpper Valley Medical [id number] 14:28:18 Medical records from [facility] have been uploaded to patients chart and placed in providers basket for review. 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 [facility] Del [facility]illoCentral [facility]
--- NOTE | 2024-06-21 16:47 | RAD REPORT ---
EXAMINATION: CT ABDOMEN AND PELVIS WITHOUT CONTRAST CLINICAL INDICATION: Male, 58 years old.ABD PAIN TECHNIQUE: CT abdomen and pelvis was performed, without IV contrast, as per department protocol. Axia l, sagittal and coronal reconstructions were obtained. One or more of the following dose reduction techniques were used: Automated exposure control, adjustment of the mA and/or kV according to the pat ient size, and/or iterative reconstruction. Unless otherwise specified, incidental findings do not require dedicated imaging follow-up. CL0115. IV CONTRAST: Not administered. COMPARISON: None FINDINGS: The lack of intravenous contrast limits the sensitivity of this exam for evaluation of solid visceral organs, vascular structures, and retroperitoneum. LOWER CHEST: No acute process identified.No significant pericardial effusion. UPPER GI: No significant abnormality. LIVER: No significant focal abnormality. GALLBLADDER/BILE DUCTS: The gallbladder is distended. The common bile duct is dilated down to the amp vaishnavi. It measures approximately 16 mm. No radiopaque stone identified.? PANCREAS: No mass, ductal dilation, or param-pancreatic fluid. SPLEEN: Unremarkable. ADRENALS: No adrenal masses. KIDNEYS AND URETERS: No hydronephrosis.No suspicious renal mass. ABDOMINAL AORTA AND OTHER VESSELS: Normal caliber aorta and IVC. PERITONEUM: No abnormal free fluid. No free air. LYMPH NODES: No pathologic lymphadenopathy. ABDOMINAL WALL: Small fat containing umbilical hernia. SMALL BOWEL/COLON: Small bowel has normal course and caliber. No colonic wall thickening or pericolon ic inflammatory changes.Normal appendix. Mild diverticulosis without diverticulitis. URINARY BLADDER: Underdistended but grossly unremarkable. REPRODUCTIVE ORGANS: No pathologic process. MUSCULOSKELETAL: Multilevel degenerative changes in the spine. No acute fracture. ADDITIONAL FINDINGS: None. IMPRESSION: Dilated common bile duct down to the level of the pancreatic head/ampulla. This could be secondary to choledocholithiasis or possibly a mass near the ampulla. This is not well assessed without contrast. Further evaluation with abdominal MRI with and without contrast is recommended.
[2024-06-21] MEDS ORDERED: NA CHLORIDE 0.9% 1,000 ML ONE (17:27)
[2024-06-21] MEDS ORDERED: ONDANSETRON 4 MG/2 ML VIAL ONE (17:27)
[2024-06-21 17:31] LABS: Absolute Eosinophils 0.1 K/uL (0-0.5); Absolute Lymphocytes (CBC) 1.5 K/uL (0.7-4.9); Absolute Monocytes 0.8 K/uL (0.1-1.3); Absolute Neutrophil 5.5 K/uL (1.8-8.0); Basophils % 0.6 % (0-1.3); Eosinophils % 1.3 % (0-4.4); Hematocrit 48.6 % (39.6-49.0); Hemoglobin 16.4 g/dL (13.6-17.9); Lymphocytes % 19.1 % (15.3-44.8); MCHC 33.8 g/dL (32.0-36.0); MCV 85.8 fL (80-100); MPV 8.1 fL (7.6-11.3); Monocytes % 9.8 % (3.3-12.3); Neutrophils % 69.2 % (41.7-73.7); Platelets 317 thou/uL (152-406); RBC Red Blood Cell Count 5.67 M/uL (4.33-5.43)
[2024-06-21 17:37] LABS: Specific Gravity 1.029 (1.005-1.030); Sqamous Epithelial None Seen /HPF (None Seen); Urine Bacteria None Seen /HPF (<20); Urine Bilirubin 2+ (Negative); Urine Blood Negative (Negative); Urine Clarity Turbid (Clear); Urine Color Dark-Yellow (Yellow); Urine Crystals Unidentified Few /HPF (None Seen); Urine Culture Reflex Order NOT NEEDED; Urine Glucose NEGATIVE (Negative); Urine Ketones NEGATIVE (Negative); Urine Microscopic Reflex YN ORDER UMIC; Urine Mucus 1+ /HPF (None Seen); Urine Nitrite NEGATIVE (Negative); Urine Protein TRACE (Negative); Urine RBC <5 /HPF (None Seen); Urine Urobilinogen Normal (Normal); Urine WBC <5 /HPF (<5); Urine Yeast (Budding) Trace /HPF (None Seen); Urine pH 5.5 (5.0-7.0)
[2024-06-21 17:50] LABS: Albumin 3.1 g/dL (3.4-5.0); Albumin/Globulin Ratio 0.7 (1.1-1.8); Bilirubin Total 7.8 mg/dL (0.2-1.0); Globulin 4.6 g/dL (2.3-3.5); Protein, Total 7.7 g/dL (6.4-8.2)
--- NOTE | 2024-06-21 18:09 | EDPHYS ---
Physician Documentation [facility] Name: Niranjan Arteaga Age: 58 yrs Sex: Male : 1965 Arrival Date: 06/21/2024 Time: 14:37 Bed 2 Private MD: ED Physician Cheng Harvey HPI: 06/21 18:09 This 58 yrs old Male presents to ER via Ambulatory with complaints of ec2 Weakness, Nausea/Vomiting. 15:36 Patient arrives today for evaluation of generalized weakness along with nausea and ec2 vomiting. Patient reports history of hypertension, hyperlipidemia. Reports been feeling unwell for the past month. Reports what brought him in today is that he started feeling lightheaded as well. Denies any chest pain. Denies any difficulty breathing.. Historical: - Allergies: 15:31 Codeine; ap3 - PMHx: 15:31 Anxiety; CVA; Hypertension; TIA; ap3 - Immunization history:: Adult Immunizations up to date. - Infectious Disease History:: Denies. - Social history:: Smoking status: Patient denies any tobacco usage or history of. ROS: 15:37 Constitutional: as per hpi ec2 Exam: 15:37 Constitutional: GEN: NAD Head: atraumatic Eyes: EOMI Ears: External ears are ec2 normal. CV: Tachycardia LUNGS: no respiratory distress ABD: Soft, not guarding, not rigid SKIN: no evidence of rashes MSK: no evidence of trauma. Neuro: Cranial nerves II through XII intact, strength intact upper extremities. Vital Signs: 15:31 BP 140 / 106; Pulse 104; Resp 17; Temp 97; Pulse Ox 98% on R/A; ap3 18:33 BP 126 / 83; Pulse 80; Resp 18; ll1 18:50 BP 122 / 90; Pulse 85; Resp 18; Pulse Ox 98% on R/A; ll1 19:49 BP 141 / 95; Pulse 79; Resp 18; Pulse Ox 98% ; cp4 MDM: 15:28 Medical Screening Exam initiated ec2 15:37 Data reviewed: vital signs, nurses notes. ED course: Patient arrives today feeling ec2 unwell. Will obtain lab work, CT imaging of the abdomen/pelvis. Differential diagnosis include processes such as hyperammonemia, uremia, electrolyte disturbances.. 17:42 ED course: EKG independently reviewed and interpreted by me, shows normal sinus rhythm, ec2 rate of 86, no acute ST segment elevations, intervals are nonactionable.. 18:03 ED course: Metabolic profile shows renal dysfunction metabolic profile shows liver ec2 abnormalities with AST and ALT elevation along with T. bili elevation at 7.8.. 18:09 ED course: Patient will require MR for additional diagnostics to evaluate for possible ec2 choledocholithiasis, possible pancreatic mass. Ultimately we do not have an interventional GI physician to perform necessary diagnostics and therapeutic procedures, will transfer for MRI as well as interventional GI.. 02 15:36 Order name: CBC with Diff; Complete Time: 17:37 ec2 06/21 15:36 Order name: CMP; Complete Time: 18:03 ec2 06/21 15:36 Order name: Lipase; Complete Time: 18:03 ec2 06/21 15:36 Order name: Urinalysis w/ reflexes; Complete Time: 17:42 ec2 06/21 15:36 Order name: AMMONIA; Complete Time: 18:03 ec2 06/21 15:36 Order name: LDH; Complete Time: 18:03 ec2 06/21 18:08 Order name: Bilirubin, Direct; Complete Time: 18:24 ec2 06/21 15:36 Order name: CT Abd/Pelvis - Without Contrast; Complete Time: 17:16 ec2 06/21 15:36 Order name: IV Saline Lock; Complete Time: 17:26 ec2 06/21 15:36 Order name: Labs collected and sent; Complete Time: 17:26 ec2 06/21 15:37 Order name: EKG - Nurse/Tech; Complete Time: 17:51 ec2 Administered Medications: 17:30 Drug: Ondansetron IVP 4 mg IVP once; over 2 minutes Route: IVP; Site: right antecubital;ll1 18:50 Follow up: Response: No adverse reaction ll1 17:30 Drug: NS 0.9% IV 1000 ml IV at 1000 ml once; to be given as a bolus over 60 minutes ll1 Route: IV; Rate: 1000 ml; Site: right antecubital; 18:50 Follow up: Response: No adverse reaction; IV Status: Completed infusion; IV Intake: ll1 1000ml 18:50 Drug: Piperacillin-Tazobactam IVPB 3.375 grams IVPB once over 60 mins; (mix in NS 100 ll1 mL) Route: IVPB; Infused Over: 60 mins; Site: right antecubital; 19:53 Follow up: IV Status: Infusion continued upon transfer cp4 Disposition Summary: 06/21/24 18:09 Transfer Ordered Notes: Transfer Location: [facility] ec2 Reason: Higher level of care ec2 Condition: Stable ec2 Problem: new ec2 Symptoms: are unchanged ec2 Accepting Physician: transferring doc(06/21/24 19:51) cp4 Diagnosis - Unspecified jaundice ec2 - Scleral Icterus, Concern for choledocholithiasis ec2 Forms: - Medication Reconciliation Form ec2 - SBAR form ec2 Signatures: Dispatcher [employer] EDLiz Fung RN RN ap3 Isabella Galvin RN RN ll1 Cheng Harvey MD MD ec2 Aissatou Burns cp4 Corrections: (The following items were deleted from the chart) 15:36 15:36 CBC+H.LAB.BRZ ordered. EDMS EDMS 15:36 15:36 COMPREHENSIVE METABOLIC PANEL+C.LAB.BRZ ordered. EDMS EDMS 15:36 15:36 LIPASE+C.LAB.BRZ ordered. EDMS EDMS 15:36 15:36 Urinalysis+U.LAB.BRZ ordered. EDMS EDMS 15:36 15:36 AMMONIA+C.LAB.BRZ ordered. EDMS EDMS 15:36 15:36 LACTIC DEHYDROGENASE+C.LAB.BRZ ordered. EDMS EDMS 15:36 15:36 Abdomen Pelvis Wo Con+CT.RAD.BRZ ordered. EDMS EDMS 19:51 18:09 transferring doc ec2 cp4
--- NOTE | 2024-06-21 18:09 | ER ---
Nurse's Notes [facility] Name: Niranjan Arteaga Age: 58 yrs Sex: Male : 1965 Arrival Date: 06/21/2024 Time: 14:37 Bed 2 Private MD: Diagnosis: Unspecified jaundice;Scleral Icterus, Concern for choledocholithiasis Presentation: 06/21 15:28 Chief complaint: Patient states: he has been sick for a month. patient states he has ap3 been nauseated, itching and his urine has been a different color. Coronavirus screen: At this time, the client does not indicate any symptoms associated with coronavirus-19. Ebola Screen: No symptoms or risks identified at this time. Initial Sepsis Screen: Does the patient meet any 2 criteria? HR > 90 bpm. No. Patient's initial sepsis screen is negative. Does the patient have a suspected source of infection? No. Patient's initial sepsis screen is negative. Risk Assessment: Do you want to hurt yourself or someone else? Patient reports no desire to harm self or others. Onset of symptoms is unknown. 15:28 Method Of Arrival: Ambulatory ap3 15:28 Acuity: ROSE 3 ap3 Triage Assessment: 15:32 General: Appears in no apparent distress. Behavior is calm, cooperative, appropriate ap3 for age. General: Reports fatigue for. Pain: Denies pain. Neuro: Level of Consciousness is awake, alert, obeys commands, Oriented to person, place, time, situation. Neuro: Reports headache for a month. Cardiovascular: Patient's skin is warm and dry. Respiratory: Airway is patent Respiratory effort is even, unlabored, Respiratory pattern is regular, symmetrical. GI: Reports nausea. : Reports changes in urine color. Historical: - Allergies: 15:31 Codeine; ap3 - PMHx: 15:31 Anxiety; CVA; Hypertension; TIA; ap3 - Immunization history:: Adult Immunizations up to date. - Infectious Disease History:: Denies. - Social history:: Smoking status: Patient denies any tobacco usage or history of. Screenin:32 [facility] ED Fall Risk Assessment (Adult) History of falling in the last 3 months, ap3 including since admission No falls in past 3 months (0 pts) Confusion or Disorientation No (0 pts) Intoxicated or Sedated No (0 pts) Impaired Gait No (0 pts) Mobility Assist Device Used No (0 pt) Altered Elimination No (0 pt) Score/Fall Risk Level 0 - 2 = Low Risk Oriented to surroundings, Maintained a safe environment, Educated pt \T\ family on fall prevention, incl call for assistance when getting out of bed, Assessed \T\ reinforced patient's understanding of fall precautions, Hourly rounding (assess needs \T\ fall precautionary measures) done, Used ambulatory aids as needed (educated on \T\ assisted with). Abuse screen: Denies threats or abuse. Nutritional screening: No deficits noted. Tuberculosis screening: No symptoms or risk factors identified. Assessment: 17:15 General: Appears uncomfortable, Behavior is calm, cooperative, appropriate for age. ll1 Pain: Denies pain. Neuro: Reports weakness. GI: Reports cramping, nausea, vomiting. 17:40 Reassessment: No changes from previously documented assessment. Patient and/or family ll1 updated on plan of care and expected duration. Pain level reassessed. 18:33 Reassessment: No changes from previously documented assessment. Patient and/or family ll1 updated on plan of care and expected duration. Pain level reassessed. Patient is alert, oriented x 3, equal unlabored respirations, skin warm/dry/pink. 18:51 Reassessment: Dr. Harvey at . ll1 19:07 Reassessment: No changes from previously documented assessment. Patient and/or family ll1 updated on plan of care and expected duration. Pain level reassessed. Patient is alert, oriented x 3, equal unlabored respirations, skin warm/dry/pink. Vital Signs: 15:31 BP 140 / 106; Pulse 104; Resp 17; Temp 97; Pulse Ox 98% on R/A; ap3 18:33 BP 126 / 83; Pulse 80; Resp 18; ll1 18:50 BP 122 / 90; Pulse 85; Resp 18; Pulse Ox 98% on R/A; ll1 19:49 BP 141 / 95; Pulse 79; Resp 18; Pulse Ox 98% ; cp4 ED Course: 14:40 Patient arrived in ED. al6 14:45 Cheng Harvey MD is Attending Physician. ec2 15:31 Triage completed. ap3 15:33 Arm band placed on left wrist. ap3 16:27 CT Abd/Pelvis - Without Contrast In Process Unspecified. EDMS 17:13 Isabella Galvin, RN is Primary Nurse. ll1 17:15 Initial lab(s) drawn, by me, sent to lab. Inserted saline lock: 22 gauge in right ll1 antecubital area, using aseptic technique. Blood collected. Flushed with 10 mL NS. 18:25 initiated transfer to [facility]. bd 19:06 No provider procedures requiring assistance completed. Patient transferred, IV remains ll1 in place. 19:07 Patient has correct armband on for positive identification. Provided Education on: Er ll1 procedures and process. Administered Medications: 17:30 Drug: Ondansetron IVP 4 mg IVP once; over 2 minutes Route: IVP; Site: right antecubital;ll1 18:50 Follow up: Response: No adverse reaction ll1 17:30 Drug: NS 0.9% IV 1000 ml IV at 1000 ml once; to be given as a bolus over 60 minutes ll1 Route: IV; Rate: 1000 ml; Site: right antecubital; 18:50 Follow up: Response: No adverse reaction; IV Status: Completed infusion; IV Intake: ll1 1000ml 18:50 Drug: Piperacillin-Tazobactam IVPB 3.375 grams IVPB once over 60 mins; (mix in NS 100 ll1 mL) Route: IVPB; Infused Over: 60 mins; Site: right antecubital; 19:53 Follow up: IV Status: Infusion continued upon transfer cp4 Medication: 19:07 VIS not applicable for this client. ll1 Intake: 18:50 IV: 1000ml; Total: 1000ml. ll1 Outcome: 18:09 ER care complete, transfer ordered by . ec2 19:06 Transferred by ground EMS to [facility], Transfer form completed. ll1 Note: report called to JODIE Samuel 19:06 Condition: stable 19:06 Instructed on the need for transfer, 19:51 Patient left the ED. cp4 Signatures: Dispatcher [employer] EDMS Michell Shaffer Amanda RN RN ap3 Isabella Galvin, RN RN ll1 Cheng Harvey MD MD ec2 Aissatou Burns cp4 Abida Bush6
[2024-06-21] MEDS ORDERED: NA CHLORIDE 0.9% 100 ML ONE (18:30)
[2024-06-21] MEDS ORDERED: PIPERACIL/TAZO 3.375 GM VIAL IV ONE (18:31)
[2024-06-21 20:05] VITALS: TEMP 97; O2SAT 98
[2024-06-21 20:09] VITALS: BP 141/95
== END 2024-06-21 19:51 | disposition short-term general hospital (02) ==
LOC: ER 14:37
DX: R17 Unspecified jaundice (principal); R53.1 Weakness; R11.2 Nausea with vomiting, unspecified
CPT/HCPCS: 96365; 96361; 93005; 85025; 81001; 36415; 82140; 83615; 82248; 83690; 80053; 74176; 96375; 99285; J2543; J2405; J7030